=== PATIENT | male | born 1940 | race Caucasian/White ===

== ENCOUNTER 2019-07-29 20:00 | Outpatient (CLI) | payer MEDICARE, SELFPAY | END 2019-07-29 20:01 | disposition home or self-care (01) | LOC: SLEEP 07-30 09:46 | PROVIDERS: PCP Nurse Practitioner; Visit Provider Nurse Practitioner | DX: G47.33 Obstructive sleep apnea (adult) (pediatric) (principal) | CPT/HCPCS: 95810 ==

== ENCOUNTER 2019-08-10 18:28 | Inpatient (IN) | payer MEDICARE, SELFPAY ==
[2019-08-10] VITALS (13 sets, daily range): BP systolic 107–143; BP diastolic 52–77; PULSE 20–105; RESP 15–18; TEMP 36.6–36.8; O2SAT 92–98; BMI 30.5
--- NOTE | 2019-08-10 18:29 | ED_ITS ---
Entered by Rachell Hodges, acting as scribe for Lizzeth Maher MD HPI - Fall General: Chief Complaint: Fall Stated Complaint: MULT FALLS Time Seen by Provider: 08/10/19 18:29 Source: patient, family and EMS Mode of arrival: EMS Limitations: no limitations History of Present Illness: HPI Narrative: 78 yo male presents to ED after multiple falls. The patient said he falls when he stands from a sitting position. He patient states he has generalized pain but denies LOC. He said he has been falling for 2 weeks but his spouse states he has fallen more since . The patient said he has been dizzy and weak, that his legs will just give out. He said this has been happening more often lately. Per EMS, the patient's BS over 600. The patient's PCP Marcela Beal MD complaint: fall Onset (ago): week(s) (2) Fall from: other (sitting to standing) Fall witnessed: yes, by family Place fall occurred: home Loss of consciousness: None Prolonged down time: no Symptoms prior to fall: dizziness and other (weak legs) Context: tripped/slipped and history of frequent falls Location of injury: other (generalized pain) Severity: moderate Quality: aching Associated symptoms-after fall: Reports lightheadedness and weakness; Denies abdominal pain or headache(s) Review of Systems Const: Denies: fever or chills Eyes: Denies: change in vision ENMT: Denies: throat pain or mouth pain Card: Reports: lightheadedness Resp: Denies: shortness of breath GI: Denies: abdominal pain, nausea, vomiting or diarrhea Musc: Denies: back pain or joint pain Skin/Breast: Denies: rash Neuro: Denies: headache or behavioral changes Psych: Denies: depression Endo: Denies: excessive urination Sanjay/Lymph: Denies: easy bruising All/Imm: Denies: hives PFSH ED PFSH: Statuses (acute, chronic, etc) shown below reflect problem list status as previously entered and may not be historically accurate Social History Smoking and tobacco status: former smoker Quit status (tobacco): has quit using tobacco Former quit date comment: 3 months ago Second hand smoke exposure: No Alcohol intake: current Alcohol intake frequency: holidays/special occasions only Alcohol type: beer Desire information about alcohol rehabilitation?: No Counseling given: No Desire information about substance/drug rehabilitation?: No Counseling given: No Adopted: No Caregiver/support person: Yes Lives independently: Yes Household members: spouse Housing: House Marital status: Highest education level completed: High School Graduate service: Yes Current occupational status: retired Current occupational exposures/hazards: No Pets and animals: No History of recent travel: No Sexually active: No Current gender identity: Male Arin/Alevism: Mu-Ism Special arin needs: No Agree to transfusion: No Financial difficulty paying for basics: Decline to Answer Physical Exam Const: COMMON NORMALS: no apparent distress and healthy appearing HENMT: COMMON NORMALS: normocephalic and external nose normal HEAD & SCALP: normocephalic NOSE: external nose normal and no nasal discharge (nasal dischage) Eye: COMMON NORMALS: PERRL PUPIL: Yes PERRL Neck/C-Spine: COMMON NORMALS: full ROM and no lymphadenopathy Chest: COMMONS NORMALS: inspection of chest normal Resp: COMMON NORMALS: normal respiratory effort and clear to auscultation bilaterally AUSCULTATION: clear to auscultation bilaterally Cardio: COMMON NORMALS: regular rate and regular rhythm RATE: regular rate RHYTHM: regular rhythm GI: COMMON NORMALS: soft to palpation PALPATION: Yes soft Extremity: COMMON NORMALS: normal to inspection, full ROM and normal capillary refill Psych: COMMON NORMALS: mental status grossly normal and cooperative Skin: COMMON NORMALS: no rashes or lesions noted GENERAL SKIN EXAM: no rashes or lesions noted Course Vital Signs: Vital signs: Vital Signs Temperature 97.9 F 08/10/19 18:34 Pulse Rate 85 08/10/19 19:34 Respiratory Rate 18 08/10/19 19:34 Blood Pressure 119/52 08/10/19 19:34 Pulse Oximetry 98 08/10/19 19:34 MDM - Fall MDM Narrative: Medical decision making narrative: Patient presents here with multiple falls and weakness likely from hyperglycemia. Patient's glucose is in the 900s and will start him on insulin drip. I spoke to hospitalist and will admit to the ICU. Lab Data: Labs: Lab Results 08/10/19 08/10/19 08/10/19 Range/Units 18:38 18:45 18:50 WBC 5.3 (4.0-10.0) 10^3/ uL RBC 4.19 (4.1-5.3) 10^6/u L Hgb 13.1 (11.7-16.6) g/dL Hct 38.0 L (42.0-52.0) % MCV 90.7 (80-94) fL MCH 31.3 (28.0-34.0) pg MCHC 34.5 (30.0-36.0) g/dL RDW 11.4 L (12.1-15.1) % Plt Count 143 (130-400) 10^3/c mm MPV 11.8 H (7.4-10.4) fL Neut % (Auto) 56.4 % Lymph % (Auto) 22.2 % Bethel % (Auto) 5.3 % Eos % (Auto) 3.0 % Baso % (Auto) 0.4 % Neut # (Auto) 3.0 (1.8-7.7) 10^3/u L Lymph # (Auto) 1.2 (0.8-4.8) 10^3/u L Bethel # (Auto) 0.3 (0.2-0.9) 10^3/u L Eos # (Auto) 0.2 (0.0-0.8) 10^3/u L Baso # (Auto) 0.0 (0.0-0.1) 10^3/u L Nucleated RBC % (a uto) 0 % Nucleated RBCs # 0.0 /100WBC PT (10.5-13.3) SECO NDS INR (0.8-1.2) Sodium (136-145) mmol/L Potassium (3.5-5.1) mmol/L Chloride (98-107) mmol/L Carbon Dioxide (22-29) mmol/L Anion Gap (5-19) BUN (8-23) mg/dL Creatinine (0.7-1.2) mg/dL Glucose (74-106) mg/dL POC Glucose > 600 (70-110) mg/dL Calcium (8.5-10.5) mg/dL Total Bilirubin (0.15-1.2) mg/dL AST (0-40) U/L ALT (0-41) U/L Alkaline Phosphata se (40-130) IU/L Troponin T Baselin e (0-15) ng/mL Total Protein (6.6-8.7) g/dL Albumin (3.5-5.2) g/dL Globulin (1.3-4.6) g/dL TSH (0.27-4.20) uIU/ mL Urine Color Yellow (Yellow) Urine Appearance Clear (CLEAR) Urine pH 5 (5-7) Ur Specific Gravit y 1.010 (1.005-1.030) Urine Protein Neg (Negative) Urine Glucose (UA) 4+ H (Normal) Urine Ketones 1+ H (Negative) Urine Occult Blood Neg (Negative) Urine Nitrate Negative (Negative) Urine Bilirubin Neg (NEGATIVE) Urine Urobilinogen Norm (Negative) mg/dL Ur Leukocyte Irais ase Negative (Negative) 08/10/19 08/10/19 08/10/19 Range/Units 18:50 18:50 18:50 WBC (4.0-10.0) 10^3/ uL RBC (4.1-5.3) 10^6/u L Hgb (11.7-16.6) g/dL Hct (42.0-52.0) % MCV (80-94) fL MCH (28.0-34.0) pg MCHC (30.0-36.0) g/dL RDW (12.1-15.1) % Plt Count (130-400) 10^3/c mm MPV (7.4-10.4) fL Neut % (Auto) % Lymph % (Auto) % Bethel % (Auto) % Eos % (Auto) % Baso % (Auto) % Neut # (Auto) (1.8-7.7) 10^3/u L Lymph # (Auto) (0.8-4.8) 10^3/u L Bethel # (Auto) (0.2-0.9) 10^3/u L Eos # (Auto) (0.0-0.8) 10^3/u L Baso # (Auto) (0.0-0.1) 10^3/u L Nucleated RBC % (a uto) % Nucleated RBCs # /100WBC PT 14.50 H (10.5-13.3) SECO NDS INR 1.09 (0.8-1.2) Sodium 129 L (136-145) mmol/L Potassium 6.0 H (3.5-5.1) mmol/L Chloride 90 L (98-107) mmol/L Carbon Dioxide 21 L (22-29) mmol/L Anion Gap 24.0 H (5-19) BUN 49 H (8-23) mg/dL Creatinine 1.9 H (0.7-1.2) mg/dL Glucose 907 H* (74-106) mg/dL POC Glucose (70-110) mg/dL Calcium 10.0 (8.5-10.5) mg/dL Total Bilirubin 0.5 (0.15-1.2) mg/dL AST 21 (0-40) U/L ALT 29 (0-41) U/L Alkaline Phosphata se 128 (40-130) IU/L Troponin T Baselin e 30 H (0-15) ng/mL Total Protein 7.2 (6.6-8.7) g/dL Albumin 4.2 (3.5-5.2) g/dL Globulin 3.0 (1.3-4.6) g/dL TSH 3.49 (0.27-4.20) uIU/ mL Urine Color (Yellow) Urine Appearance (CLEAR) Urine pH (5-7) Ur Specific Gravit y (1.005-1.030) Urine Protein (Negative) Urine Glucose (UA) (Normal) Urine Ketones (Negative) Urine Occult Blood (Negative) Urine Nitrate (Negative) Urine Bilirubin (NEGATIVE) Urine Urobilinogen (Negative) mg/dL Ur Leukocyte Irais ase (Negative) Imaging Data^: CT Head: Radiologist's impression: [facility] Final Radiology Report Call: [phone] assistance Online chat: [email or web address] Name: KAREN GRIMALDO Age: 78Years M Date: 08/10/2019 SSN: -- : [id number] Study: CT HEAD WO Requesting Physician: lizzeth Maher Images: 192 Add?l Studies: Provided Clinical History: weakness Procedure Accession CTDI Vol (mGy) DLP (mGy-cm) CT HEAD WO [id number] 796.16 Page 1 of 2 PROCEDURE INFORMATION: Exam: CT Head Without Contrast Exam date and time: 08/10/2019 7:55 PM Age: 78 years old Clinical indication: Walking, difficulty; Additional info: Weakness TECHNIQUE: Imaging protocol: Computed tomography of the head without contrast. Total DLP: 796.16 mGy-cm Radiation optimization: All CT scans at this facility use at least one of these dose optimization techniques: automated exposure control; mA and/or kV adjustment per patient size (includes targeted exams where dose is matched to clinical indication); or iterative reconstruction. COMPARISON: No relevant prior studies available. FINDINGS: Brain: There is diffuse cerebral atrophy present, consistent with this patient's age. Periventricular and subcortical white matter low densities are present which at this age likely represent microvascular ischemic change. No evidence for large acute ischemic infarction. Please note acute ischemia can be occult by head CT. Ventricles: Normal. No ventriculomegaly. Bones/joints: Unremarkable. No acute fracture. Sinuses: Visualized sinuses are unremarkable. No fluid levels. Mastoid air cells: Visualized mastoid air cells are well aerated. Soft tissues: Unremarkable. Vasculature: Calcified plaque is present within the intracranial vasculature. IMPRESSION: KAREN GRIMALDO Final Radiology Report CONFIDENTIALITY STATEMENT This report is intended only for use by the referring physician, and only in accordance with law. If you received this in error, call [phone]. Page 2 of 2 There are senescent changes of the brain as described above. No evidence for large acute ischemic infarction or acute intracranial injury. Thank you for allowing us to participate in the care of your patient. Dictated and Authenticated by: Abigail Goetz MD 08/10/2019 Discharge Plan Discharge Patient Disposition: Admitted As Inpatient Admit Provider: Gennaro Wren Clinical Impression: Acute hyperglycemia Condition: Stable Referrals: Jameson Beal, DEPUTY CLERK OF COURT-C [Primary Care Provider] - Coding Level of Care Code ED Roadside Mechanic for Chg Fwd Exam Problem Focused The documentation recorded by the Tracie roe Valerie R, accurately reflects the service I personally performed and the decisions made by Gunnar hurtado Korby, MD Aug 10, 2019 18:28
--- NOTE | 2019-08-10 18:38 | XRR_ITS ---
PROCEDURE INFORMATION: Exam: XR Chest, 1 View Exam date and time: 08/10/2019 6:58 PM Age: 78 years old Clinical indication: Cough TECHNIQUE: Imaging protocol: XR of the chest Views: 1 view. COMPARISON: No relevant prior studies available. FINDINGS: Lungs: Unremarkable. No consolidation. Pleural space: Unremarkable. No pleural effusion. No pneumothorax. Heart/Mediastinum: Unremarkable. No cardiomegaly. Bones/joints: Unremarkable. XR/XR chest 1V portable [id number] IMPRESSION: No acute findings.
[2019-08-10 18:49] LABS: Glucose Point of Care > 600 mg/dL (70-110)
[2019-08-10] MEDS: sodium chloride 0.9% 1,000 ML 999 ML IV (18:53)
[2019-08-10 19:02] LABS: Basophils % 0.4 %; Eosinophils # 0.2 10^3/uL (0.0-0.8); Hemoglobin 13.1 g/dL (11.7-16.6); Lymphocytes # 1.2 10^3/uL (0.8-4.8); Lymphocytes % 22.2 %; Mean Corpuscular HGB Conc 34.5 g/dL (30.0-36.0); Mean Corpuscular Hemoglobin 31.3 pg (28.0-34.0); Mean Corpuscular Volume 90.7 fL (80-94); Mean Platelet Volume 11.8 fL (7.4-10.4); Monocytes # 0.3 10^3/uL (0.2-0.9); Monocytes % 5.3 %; Neutrophils % 56.4 %; Nucleated Red Blood Cells % 0 %; Platelet Count 143 10^3/cmm (130-400); Red Blood Count 4.19 10^6/uL (4.1-5.3); Red Cell Distribution Width 11.4 % (12.1-15.1); White Blood Count 5.3 10^3/uL (4.0-10.0)
[2019-08-10 19:11] LABS: Add Urine Microscopic? NO
[2019-08-10 19:12] LABS: INR 1.09 (0.8-1.2)
--- NOTE | 2019-08-10 19:23 | PC.NURSE ---
Introduced self to patient and initiated vital signs. Pt is A&O x 3 and agreeable. Pt states that the reason for the ER visit today is due to excessively high blood sugar reading. Pt also complaining of dizziness when trying to stand. Reassured patient of needs and will continue to monitor. Brought patient bedside commode and assisted with use.
[2019-08-10 19:24] LABS: Troponin(5th) Baseline 30 ng/mL (0-15)
[2019-08-10 19:24] LABS: Bilirubin Urine Neg (NEGATIVE); Blood Urine Neg (Negative); Glucose Urine UA 4+ (Normal); Ketones Urine 1+ (Negative); Leukocyte Esterase Urine Negative (Negative); Nitrate Urine Negative (Negative); Protein Urine Neg (Negative); Urine Appearance Clear (CLEAR); Urine Color Yellow (Yellow); Urobilinogen Urine Norm (Negative); pH Urine 5 (5-7)
[2019-08-10 19:30] LABS: Slide Review Slide Review Perform
--- NOTE | 2019-08-10 19:40 | CTR_ITS ---
PROCEDURE INFORMATION: Exam: CT Head Without Contrast Exam date and time: 08/10/2019 7:55 PM Age: 78 years old Clinical indication: Walking, difficulty; Additional info: Weakness TECHNIQUE: Imaging protocol: Computed tomography of the head without contrast. Total DLP: 796.16 mGy-cm Radiation optimization: All CT scans at this facility use at least one of these dose optimization techniques: automated exposure control; mA and/or kV adjustment per patient size (includes targeted exams where dose is matched to clinical indication); or iterative reconstruction. COMPARISON: No relevant prior studies available. FINDINGS: Brain: There is diffuse cerebral atrophy present, consistent with this patient's age. Periventricular and subcortical white matter low densities are present which at this age likely represent microvascular ischemic change. No evidence for large acute ischemic infarction. Please note acute ischemia can be occult by head CT. Ventricles: Normal. No ventriculomegaly. Bones/joints: Unremarkable. No acute fracture. Sinuses: Visualized sinuses are unremarkable. No fluid levels. Mastoid air cells: Visualized mastoid air cells are well aerated. Soft tissues: Unremarkable. Vasculature: Calcified plaque is present within the intracranial vasculature. CT/CT head wo con* [id number] IMPRESSION: There are senescent changes of the brain as described above. No evidence for large acute ischemic infarction or acute intracranial injury. Radiation Dose CTDIVOL = (mGy): DLP = 796.16 (mGy-cm)
[2019-08-10 20:08] LABS: Alanine Aminotransferase 29 U/L (0-41); Albumin Level 4.2 g/dL (3.5-5.2); Alkaline Phosphatase 128 IU/L (40-130); Aspartate Amino Transferase 21 U/L (0-40); Blood Urea Nitrogen 49 mg/dL (8-23); Carbon Dioxide 21 mmol/L (22-29); Chloride 90 mmol/L (98-107); Creatinine Clr Calc Pharmacy 35.6625; Sodium 129 mmol/L (136-145); Thyroid Stimulating Hormone 3.49 uIU/mL (0.27-4.20); Total Bilirubin 0.5 mg/dL (0.15-1.2); Total Protein 7.2 g/dL (6.6-8.7)
[2019-08-10 20:27] LABS: Glucose 907 mg/dL (74-106)
[2019-08-10 21:11] LABS: Ketone (Acetest) Serum Negative (Negative)
[2019-08-10 21:21] LABS: Troponin 5 2HR 29.08 ng/mL (0-15)
[2019-08-10 21:22] LABS: Troponin 5 2HR Delta -0.92 ABS# (0-10)
[2019-08-10] MEDS: insulin regular-human 250 UNIT in sodium chloride 0.9% 250 ML 25.7 UNIT IV (21:23)
[2019-08-10 21:30] LABS: ABG PCO2 42.9 mmHg (35-45); Arterial Blood Gas Hematocrit 41.9 % (42-52); Base Excess ABG -5.2 mmol/L (-2.0-2.0); Blood Gas Allen Test Pos; Blood Gas Sample Site Radial, left; Blood Gas Sample Type Arterial; HCO3 ABG 21.1 mmol/L (22-26); PO2 ABG 64.6 mmHg (80.0-100.0)
--- NOTE | 2019-08-10 21:31 | P.HP_ITS ---
Providers/Chief Complaint Admitting Physician: Gennaro Wren MD Primary Care Provider: DIAN JusticeP-Elena Chief Complaint: HYPERGLYCEMIA History of Present Illness Vik Bruce is a 78 year old male with suboptimally controlled type 2 diabetes, has not been checking his blood sugar at home, noncompliant came in with chief complaint of generalized weakness. Patient is stating that recently he has been eating more, he wakes up at night to eat sugary foods, he has been experiencing urinary frequency, today he went to bathroom and was not able to get up from the toilet seat and at that time he decided to come to ED. In ED blood sugar was 900, he was admitted to ICU. He did not meet DKA criteria. Patient does not remember what type of insulin he is taking but he remembers that he takes Victoza and he is not on metformin. I have reviewed his previous office record which indicates that he was put on sliding scale and was helping him to keep his blood sugar under control. He is scheduled to get EGD and colonoscopy by Dr. Alfredo in recent future. He is denying chest pain, shortness of breath, dysuria, epigastric pain, recent flulike symptoms. Diagnostics in ER showed hyperglycemia blood glucose 900, potassium of 6, normal bicarb level, ketones negative, high anion gap, Review of Systems Const: Reports: body aches, change in appetite, fatigue and malaise; Denies: fever or chills Eyes: Denies: change in vision or blurry vision ENMT: Denies: throat pain Card: Denies: chest pain Resp: Denies: shortness of breath GI: Denies: abdominal pain : Denies: flank pain Musc: Denies: neck pain Skin/Breast: Denies: rash Neuro: Denies: headache Psych: Denies: anxiety Endo: Reports: excessive urination and excessive thirst Sanjay/Lymph: Denies: easy bruising All/Imm: Denies: hives Medications/Allergies Allergies Allergy/AdvReac Type Severity Reaction Status Date / Time Penicillins Allergy Unknown Unknown Verified 08/08/19 11:30 PFSH Acute PFSH: Statuses (acute, chronic, etc) shown below reflect problem list status as previously entered and may not be historically accurate Social History Smoking and tobacco status: former smoker Quit status (tobacco): has quit using tobacco Former quit date comment: 3 months ago Second hand smoke exposure: No Alcohol intake: current Alcohol intake frequency: holidays/special occasions only Alcohol type: beer Desire information about alcohol rehabilitation?: No Counseling given: No Desire information about substance/drug rehabilitation?: No Counseling given: No Adopted: No Caregiver/support person: Yes Lives independently: Yes Household members: spouse Housing: House Marital status: Highest education level completed: High School Graduate service: Yes Current occupational status: retired Current occupational exposures/hazards: No Pets and animals: No History of recent travel: No Sexually active: No Current gender identity: Male Arin/Congregational: Religious Special arin needs: No Agree to transfusion: No Financial difficulty paying for basics: Decline to Answer Vitals/I&O/Wt Last Vital Signs Temp 97.9 F 08/10/19 18:34 Pulse 85 08/10/19 19:34 Resp 18 08/10/19 19:34 BP 119/52 08/10/19 19:34 Pulse Ox 98 08/10/19 19:34 Weight last 48 hrs Weight 93.894 kg Physical Exam Narrative: EXAM NARRATIVE: Appears stated age, lying comfortable in his bed, S1-S2, no signs of active heart failure murmur EOMI, PERRLA No signs of dehydration Abdomen soft nontender nondistended bowel sound present Neurologically nonfocal exam, Lungs are clear to auscultation without adventitious sounds Skin does not show any signs ischemia gangrene ulcer Appropriate mood and affect with mild cognitive impairment Data : 08/10/19 18:50 08/10/19 18:50 A&P Assessment and plan (1) Acute hyperglycemia: Status: Acute Code(s): R73.9 - Hyperglycemia, unspecified (2) Chronic kidney disease (CKD), stage III (moderate): Status: Acute Code(s): N18.3 - Chronic kidney disease, stage 3 (moderate) (3) Hyperosmolar non-ketotic state in patient with type 2 diabetes mellitus: Status: Acute Code(s): E11.00 - Type 2 diabetes mellitus with hyperosmolarity without nonketotic hyperglycemic-hyperosmolar coma (NKHHC) Additional A&P Information Hyperosmolar hyperglycemia without ketosis or comatose condition Current blood glucose 900, initiate DKA protocol Does not meet DKA criteria but will follow regular insulin DKA protocol BMP every 2 hours, currently potassium is 6, I would use normal saline without potassium Stop insulin if potassium less than 3.5, add D5 once blood sugar less than 250, Bridge with long-acting insulin once anion gap is closed We will check A1c level, lipid panel and TSH Patient needs extensive diabetic teaching I believe he also has mild cognitive impairment as well which might be a casandra for optimal glucose control, is not at the bedside who is caregiver for him Chronic kidney disease I would go ahead and keep insulin on board because I think poor 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 continue home medications amlodipine and lisinopril Anxiety/depression: I would continue his buspirone Hold cyclobenzaprine for now BPH: Continue tamsulosin DVT prophylaxis: Heparin GI prophylaxis not needed Full code Attestations Medical Necessity Statement*: Currently patient needs more than 2 midnights in the hospital for management of hyperglycemia, currently on IV insulin in ICU Time Spent in Patient Care: 50 Coding Level of Care Code Acute Freight Rate Specialist for Juan Jose Alcala Diagnoses Acute hyperglycemia R73.9 Chronic kidney disease (CKD), stage III (moderate) N18.3 Hyperosmolar non-ketotic state in patient with type 2 diabetes mellitus E11.00
[2019-08-10] MEDS: sodium chloride 0.9% 1,000 ML 250 ML IV (22:01)
[2019-08-10 23:13] LABS: Glucose Point of Care 417 mg/dL (70-110)
[2019-08-10 23:13] LABS: Glucose Point of Care > 600 mg/dL (70-110)
[2019-08-10] MEDS: heparin 5,000 unit/mL INJ 1 mL 5000 UNIT SUBCUT (23:32)
[2019-08-10 23:37] LABS: Chol HDL Ratio 5.58 mg/dL (1.0-5.00); Cholesterol 145 mg/dL (0-200); Estmated Average Glucose 349; HDL Cholesterol 26 mg/dL (60-100); Hemoglobin A1C 13.8 % (4.0-6.0); LDL Cholesterol Calculated 50 mg/dL (50-129); LDL HDL Ratio 1.92 RATIO (0.00-3.22); Triglycerides 344 mg/dL (0-150)
[2019-08-11] VITALS (23 sets, daily range): BP systolic 77–118; BP diastolic 38–77; PULSE 62–91; RESP 9–20; TEMP 36.2–36.8; O2SAT 79–99
--- NOTE | 2019-08-11 00:39 | ECG_ITS ---
Measurements Intervals [place] Rate: 76 P: 37 GA: 204 QRS: 2 QRSD: 100 T: 65 QT: 334 QTc: 378 SINUS RHYTHM WARNING: DATA QUALITY MAY AFFECT INTERPRETATION No previous ECG available for comparison Electronically Signed On 08-11-2019 17:52:51 [employer] SUPERVISOR by Gennaro Concepcion M.D. [email or web address]
[2019-08-11] MEDS: dextrose 5%-sod chloride 0.45% 1,000 ML 125 ML IV (01:19)
[2019-08-11 01:37] LABS: Anion Gap 16.5 (5-19); Blood Urea Nitrogen 44 mg/dL (8-23); Carbon Dioxide 23 mmol/L (22-29); Chloride 102 mmol/L (98-107); Glucose 190 mg/dL (74-106); Osmolality Calculated 287 mOsm/kg (285-295); Potassium 4.5 mmol/L (3.5-5.1); Sodium 137 mmol/L (136-145)
[2019-08-11 01:38] LABS: Troponin 5 6HR 28.75 ng/L (0-15)
[2019-08-11 01:55] LABS: Troponin 5 6HR Delta -1.25 ng/L (0-12)
[2019-08-11 04:42] LABS: Basophils % 0.4 %; Eosinophils # 0.3 10^3/uL (0.0-0.8); Eosinophils % 3.3 %; Hematocrit 34.2 % (42.0-52.0); Hemoglobin 12.2 g/dL (11.7-16.6); Lymphocytes # 2.4 10^3/uL (0.8-4.8); Lymphocytes % 31.6 %; Mean Corpuscular HGB Conc 35.7 g/dL (30.0-36.0); Mean Platelet Volume 11.6 fL (7.4-10.4); Monocytes # 0.6 10^3/uL (0.2-0.9); Monocytes % 8.3 %; Neutrophils # 3.7 10^3/uL (1.8-7.7); Neutrophils % 49.1 %; Nucleated Red Blood Cells % 0 %; Platelet Count 149 10^3/cmm (130-400); Positive C 1; Positive M 1; Red Blood Count 3.93 10^6/uL (4.1-5.3); White Blood Count 7.5 10^3/uL (4.0-10.0)
[2019-08-11 05:09] LABS: Anion Gap 16.4 (5-19); Blood Urea Nitrogen 41 mg/dL (8-23); Calcium 9.9 mg/dL (8.5-10.5); Carbon Dioxide 24 mmol/L (22-29); Chloride 103 mmol/L (98-107); Glucose 106 mg/dL (74-106); Osmolality Calculated 286 mOsm/kg (285-295); Potassium 4.4 mmol/L (3.5-5.1); Sodium 139 mmol/L (136-145)
[2019-08-11 06:14] LABS: Slide Review Slide Review Perform
[2019-08-11 06:27] LABS: Glucose Point of Care 102 mg/dL (70-110)
[2019-08-11 06:27] LABS: Glucose Point of Care 346 mg/dL (70-110)
[2019-08-11 06:27] LABS: Glucose Point of Care 200 mg/dL (70-110)
[2019-08-11 06:27] LABS: Glucose Point of Care 137 mg/dL (70-110)
[2019-08-11 06:27] LABS: Glucose Point of Care 152 mg/dL (70-110)
[2019-08-11 06:27] LABS: Glucose Point of Care 116 mg/dL (70-110)
[2019-08-11 07:27] LABS: Glucose Point of Care 210 mg/dL (70-110)
[2019-08-11 07:35] LABS: Glucose Point of Care 163 mg/dL (70-110)
[2019-08-11] MEDS: amlodipine 5 mg Tablet PO (07:48)
[2019-08-11] MEDS: lisinopril 20 mg Tablet PO (07:48)
[2019-08-11] MEDS: heparin 5,000 unit/mL INJ 1 mL 5000 UNIT SUBCUT ×3 (07:48→22:34)
[2019-08-11] MEDS: tamsulosin 0.4 mg Capsule PO (07:49)
--- NOTE | 2019-08-11 08:36 | PC.NURSE ---
Dr. Vázquez in room. Orders received to stop current fluids and administer 0.9 NS at 75 cc/hr.
--- NOTE | 2019-08-11 09:35 | PC.NURSE ---
Orthostatic BP Lying: BP 118/61, HR 71 Sitting: BP 113/62, HR 83 Standing: BP 113/63, HR 91
[2019-08-11] MEDS: sodium chloride 0.9% 1,000 ML 75 ML IV ×2 (09:44→22:35)
[2019-08-11 09:53] LABS: Glucose Point of Care 314 mg/dL (70-110)
[2019-08-11 10:06] LABS: Glucose Point of Care 322 mg/dL (70-110)
--- NOTE | 2019-08-11 11:56 | PC.NURSE ---
in room. states that patient's BG had been running around 600 for three days before coming to the hospital. She states she does not think the patient is following their insulin regime correctly.
[2019-08-11 12:00] LABS: Glucose Point of Care 310 mg/dL (70-110)
--- NOTE | 2019-08-11 14:27 | PC.NURSE ---
Report given to [facility]. Patient taken to [facility] via wheelchair.
[2019-08-11 17:06] LABS: Glucose Point of Care 384 mg/dL (70-110)
--- NOTE | 2019-08-11 17:33 | P.PN_ITS ---
Subjective Subjective: Interval history: Admitted overnight. H&P and labs noted. At present patient is off the insulin drip since midnight with his blood sugars well maintained. Denies of having any nausea, vomiting, headache, chest pain, palpitations. Patient is not really sure what medications he takes for diabetes. Medications: Medication Review Details: Med rec done. Vitals/I&O/Wt Last Vital Signs Temp 98.2 F 08/11/19 16:00 Pulse 74 08/11/19 16:00 Resp 16 08/11/19 16:00 BP 100/57 08/11/19 16:00 Pulse Ox 92 08/11/19 16:00 08/11/19 08/11/19 08/11/19 06:59 14:59 22:59 Intake Total 1092.043 / 1092.043 750 / 750 Output Total 450 / 450 350 / 350 Balance 642.043 / 642.043 400 / 400 Weight last 48 hrs Weight 93.894 kg Physical Exam Narrative: EXAM NARRATIVE: General: No acute distress, AO x3 HEENT: PERRLA, pupils bilaterally equal and reactive Chest: Normal vesicular breath sounds, no added sounds, equal good air entry bilaterally CVS: S1-S2 regular, no murmurs, no tachycardia, no gallops, no rubs Abdomen: Soft, nontender, no organomegaly, bowel sounds present Neuro: No focal deficits, no facial deformity, AO x3, power 5/5 in all limbs Data : 08/11/19 03:46 08/11/19 03:46 A&P Assessment and plan (1) Acute hyperglycemia: Status: Acute Code(s): R73.9 - Hyperglycemia, unspecified (2) Chronic kidney disease (CKD), stage III (moderate): Status: Acute Code(s): N18.3 - Chronic kidney disease, stage 3 (moderate) (3) Hyperosmolar non-ketotic state in patient with type 2 diabetes mellitus: Status: Acute Code(s): E11.00 - Type 2 diabetes mellitus with hyperosmolarity without nonketotic hyperglycemic-hyperosmolar coma (NKHHC) Additional A&P Information Hyperosmolar hyperglycemia without ketosis or comatose condition: Most likely due to medication noncompliance. Patient has been off insulin drip since midnight. Patient is currently on D5 NS running at 125 cc/h. We will switch to fluid to NS at 75 cc/h Check fingersticks for next 2 hours every 1 hourly. After that can check fingersticks before meals and at bedtime. Continue patient on moderate insulin sliding scale along with Lantus of 20 units bedtime. Continue with carb consistent diet. Med rec not done. Will ask the help of nursing staff for medical reconciliation. I tried calling his who is also his caregiver and she will try to get the medications from home. Chronic kidney disease Baseline creatinine around 1.3. In past creatinine has gone as high as 2.6 in 2018. Right now creatinine 1.5 most likely due to dehydration. Next We will avoid nephrotoxic drugs. Stop lisinopril for now. Continue with hydration. Check BMP daily. Hypertension: Patient complaining of recurrent falls. Orthostatic BP check. Hold off on Amlo and lisinopril for now given low BP. C/w hydration. Physical therapy assessment and evaluation Anxiety/depression: I would continue his buspirone Hold cyclobenzaprine for now BPH: Continue tamsulosin DVT prophylaxis: Heparin GI prophylaxis not needed Full code Transfer patient to [facility] floor. Attestations Medical Necessity Statement*: Discontinued hospitalization for recurrent falls and HHS. Time Spent in Patient Care: Greater than 35 minutes (>than 50% of time spent in counselling and/or direct pt care on unit) . Coding Level of Care Code Acute Print Producer for Juan Jose Alclaa Diagnoses Acute hyperglycemia R73.9 Chronic kidney disease (CKD), stage III (moderate) N18.3 Hyperosmolar non-ketotic state in patient with type 2 diabetes mellitus E11.00
[2019-08-11] MEDS: insulin glargine 100 units/1 mL 20 UNIT SUBCUT (21:11)
[2019-08-11 22:07] LABS: Glucose Point of Care 358 mg/dL (70-110)
[2019-08-12] VITALS: BP 106/68; PULSE 63; RESP 22; TEMP 37.1; O2SAT 96
[2019-08-12 03:50] VITALS: BP 137/79; PULSE 79; RESP 18; TEMP 36.7; O2SAT 95
[2019-08-12 05:09] LABS: Basophils % 0.4 %; Eosinophils # 0.3 10^3/uL (0.0-0.8); Eosinophils % 4.9 %; Hemoglobin 11.8 g/dL (11.7-16.6); Lymphocytes # 1.9 10^3/uL (0.8-4.8); Mean Corpuscular HGB Conc 35.8 g/dL (30.0-36.0); Mean Corpuscular Hemoglobin 31.4 pg (28.0-34.0); Mean Corpuscular Volume 87.8 fL (80-94); Mean Platelet Volume 11.6 fL (7.4-10.4); Monocytes # 0.3 10^3/uL (0.2-0.9); Monocytes % 6.4 %; Neutrophils # 2.3 10^3/uL (1.8-7.7); Neutrophils % 44.5 %; Nucleated Red Blood Cells % 0 %; Platelet Count 134 10^3/cmm (130-400); Positive C 1; Positive M 1; Red Blood Count 3.76 10^6/uL (4.1-5.3); Red Cell Distribution Width 11.3 % (12.1-15.1); White Blood Count 5.1 10^3/uL (4.0-10.0)
[2019-08-12 05:22] LABS: Alanine Aminotransferase 31 U/L (0-41); Albumin Level 3.7 g/dL (3.5-5.2); Alkaline Phosphatase 75 IU/L (40-130); Anion Gap 15.7 (5-19); Aspartate Amino Transferase 27 U/L (0-40); Blood Urea Nitrogen 28 mg/dL (8-23); Carbon Dioxide 22 mmol/L (22-29); Chloride 100 mmol/L (98-107); Globulin 2.5 g/dL (1.3-4.6); Glucose 192 mg/dL (74-106); Potassium 4.7 mmol/L (3.5-5.1); Sodium 133 mmol/L (136-145); Total Bilirubin 0.4 mg/dL (0.15-1.2); Total Protein 6.2 g/dL (6.6-8.7)
[2019-08-12 06:45] LABS: Slide Review Slide Review Perform
[2019-08-12 07:00] VITALS: BP 113/70; BP 120/75; BP 131/74; BP 94/63; PULSE 69; PULSE 77; PULSE 84; PULSE 93; RESP 22; TEMP 36.6; O2SAT 96
[2019-08-12 07:18] LABS: Glucose Point of Care 213 mg/dL (70-110)
[2019-08-12] MEDS: heparin 5,000 unit/mL INJ 1 mL 5000 UNIT SUBCUT (09:03)
[2019-08-12] MEDS: tamsulosin 0.4 mg Capsule PO (09:03)
--- NOTE | 2019-08-12 10:21 | P.DS_ITS ---
Discharge Providers Date of Admission: 08/10/19 20:34 Date of Discharge: 08/12/19 Attending Provider at Admission: Gennaro Wren MD Attending Provider at Discharge: Sacha Vázquez MD Primary Care Provider: ANEL Justice Diagnoses at Discharge Discharge Diagnosis (1) Acute hyperglycemia: Status: Acute (2) Chronic kidney disease (CKD), stage III (moderate): Status: Acute (3) Hyperosmolar non-ketotic state in patient with type 2 diabetes mellitus: Status: Acute Reason for Visit Reason for Visit: Reason For Visit: HYPERGLYCEMIA Hospital Course Discharge Summary: Vik Bruce is a 78 year old male with past medical history of hypertension, anxiety/depression, BPH, CKD, suboptimally controlled type 2 diabetes, who is mostly noncompliant with his medications, lifestyle modifications came in with chief complaint of generalized weakness on August 10. Under sedation patient was found to be in hyperosmolar hyperglycemic state without ketosis or comatose condition with his blood sugar more than 900. Patient was admitted to the ICU for IV hydration and insulin drip. Patient responded well to the treatment and was off the insulin drip in 4 to 5 hours. Patient was treated as per the DKA protocol. His electrolytes and blood sugar remained stable. On further interviewing with the patient patient stated that he is very noncompliant with his diet and snacks multiple times during the day and sometimes takes his insulin once a day or twice a day depending on the type of day at rest. Patient has also been complaining of frequent falls because of which orthostatics were done and was found to be positive. During hospitalization patient's blood pressure remained on the lower side so his antihypertensives were withheld. Orthostatics were positive most likely due to dehydration along with diabetic nephropathy. Patient has been advised to stop his antihypertensives and follow-up with his primary care practitioner in 2 weeks for a blood pressure check and commencement of medications as required. As patient required around 65 units of insulin his antidiabetic medications have been adjusted as well and given the noncompliance patient has been advised to take Lantus 60 units in 2 divided doses along with his home dose of Victoza. Patient has agreed to be compliant with the current medications. Patient has been educated and counseled regarding need to be on better lifestyle modifications. Patient is discharged in hemodynamically stable condition with better sugar control. Physical Exam Narrative: EXAM NARRATIVE: General: No acute distress, AO x3 HEENT: PERRLA, pupils bilaterally equal and reactive Chest: Normal vesicular breath sounds, no added sounds, equal good air entry bilaterally CVS: S1-S2 regular, no murmurs, no tachycardia, no gallops, no rubs Abdomen: Soft, nontender, no organomegaly, bowel sounds present Neuro: No focal deficits, no facial deformity, AO x3, power 5/5 in all limbs Discharge Data Data Completed and Pending: Completed Studies During Hospitalization Category Date Time Status CT head wo con* [id number] Urgent Cat Scan 08/10/19 19:40 Completed XR chest 1V mil ble [id number] Urgent Exams 08/10/19 18:38 Completed Labs from last 24 hours 08/12/19 08/12/19 08/12/19 07:03 04:45 04:45 WBC 5.1 RBC 3.76 L Hgb 11.8 Hct 33.0 L MCV 87.8 MCH 31.4 MCHC 35.8 RDW 11.3 L Plt Count 134 MPV 11.6 H Neut % (Auto) 44.5 Lymph % (Auto) 37.0 [place] % (Auto) 6.4 Eos % (Auto) 4.9 Baso % (Auto) 0.4 Neut # (Auto) 2.3 Lymph # (Auto) 1.9 [place] # (Auto) 0.3 Eos # (Auto) 0.3 Baso # (Auto) 0.0 Nucleated RBC % (a uto) 0 Nucleated RBCs # 0.0 Sodium 133 L Potassium 4.7 Chloride 100 Carbon Dioxide 22 Anion Gap 15.7 BUN 28 H Creatinine 1.5 H Glucose 192 H POC Glucose 213 Calcium 9.0 Total Bilirubin 0.4 AST 27 ALT 31 Alkaline Phosphata se 75 Total Protein 6.2 L Albumin 3.7 Globulin 2.5 08/11/19 08/11/19 08/11/19 21:43 16:52 11:27 WBC RBC Hgb Hct MCV MCH MCHC RDW Plt Count MPV Neut % (Auto) Lymph % (Auto) [place] % (Auto) Eos % (Auto) Baso % (Auto) Neut # (Auto) Lymph # (Auto) [place] # (Auto) Eos # (Auto) Baso # (Auto) Nucleated RBC % (a uto) Nucleated RBCs # Sodium Potassium Chloride Carbon Dioxide Anion Gap BUN Creatinine Glucose POC Glucose 358 384 310 Calcium Total Bilirubin AST ALT Alkaline Phosphata se Total Protein Albumin Globulin Vitals: Last Vital Signs Temp 97.8 F 08/12/19 07:00 Pulse 77 08/12/19 07:00 Resp 22 H 08/12/19 07:00 BP 113/70 08/12/19 07:00 Pulse Ox 96 08/12/19 07:00 Discharge Plan Discharge Patient Disposition: Home, Self-Care Condition: Stable Prescriptions: Continued (DME) blood-glucose meter [OneTouch Ultra2 Meter] Kit See Rx Instructions .ROUTE .MEDSUPPLY Qty: 1 RF: 0 (DME) OneTouch Ultra Blue Test Strip Strip See Rx Instructions .ROUTE .MEDSUPPLY Qty: 100 RF: 5 atorvastatin 10 mg tablet 10 mg PO BEDTIME RF: 0 tamsulosin 0.4 mg capsule 0.4 cap PO DAILY RF: 0 calcium carbonate-vitamin D3 500mg (1,250mg) -600 unit tablet 1 ea PO BID RF: 0 (DME) pen needle, diabetic 32 gauge x 5/32 needle See Rx Instructions ea .ROUTE .MEDSUPPLY Qty: 10 RF: 0 cyclobenzaprine 10 mg tablet 10 mg PO BEDTIME RF: 0 Victoza 3-Karan 0.6 mg/0.1 mL (18 mg/3 mL) pen injector 18 mg SUBCUT DAILY RF: 0 Changed sertraline 50 mg tablet 25 tab PO DAILY Qty: 0 RF: 0 buspirone 15 mg tablet 15 mg PO DAILY PRN (Reason: Anxiety) Qty: 0 RF: 0 Levemir FlexTouch U-100 Insuln 100 units/ml auto-injector 30 units INJECTION BIDWM Qty: 300 RF: 3 Discontinued amlodipine 2.5 mg tablet 2.5 tab PO DAILY RF: 0 lisinopril 20 mg tablet 20 mg PO DAILY RF: 0 insulin lispro [Humalog KwikPen Insulin] 100 unit/mL insulin pen 3 - 24 unit SUBCUT TIDWM RF: 0 Discharge Orders: Discharge Order (Routine); Ordered 08/12/19 Ordered By: Sacha Vázquez Referrals: Jameson Beal, [facility] [Primary Care Provider] - 08/18/19 1:20 pm Discharge Diet: Cardiac and Diabetic Discharge Activity: Resume usual activity Patient Instructions: Insulin Detemir (Injection), Meal Planning with Diabetes Exchanges (DC) Activity Restrictions/Additional Instructions: Take insulin as prescribed. Take insulin Levemir 30 units once morning once evening. All the antihypertensives were withheld due to diabetic neuropathy. While getting out of bed, get up slowly to avoid orthostasis. Discharge Date/Time: 08/12/19 11:00 Discharge Attestations Time Spent in Discharge Care*: greater than 30 min Specific Discharge Activities: Specific discharge activities: educating patient and evaluating patient/reviewing data Status at Discharge: Cognitive status at discharge: cognitively intact , Behavioral status at discharge: cooperative , Functional status at discharge: independent ambulation Overall status at discharge: patient is back to baseline Quality Metrics Clinical Quality Measures During this hospital stay, did patient experience: None Coding Level of Care Code Acute Learning Designer for Juan Jose Fwd Diagnoses Acute hyperglycemia R73.9 Chronic kidney disease (CKD), stage III (moderate) N18.3 Hyperosmolar non-ketotic state in patient with type 2 diabetes mellitus E11.00
[2019-08-12 10:38] VITALS: BP 120/75; PULSE 69; RESP 22; TEMP 36.6; O2SAT 96
== END 2019-08-12 11:00 | disposition home or self-care (01) | DRG 637 ==
LOC: ER 20:48 → ICU 20:49 → MEDSURG 08-11 14:19
PROVIDERS: Admitting Provider Internal Medicine; Emergency Provider Emergency Medicine; PCP Nurse Practitioner; Visit Provider Student in an Organized Health Care Education/Training Program
DX: E11.65 Type 2 diabetes mellitus with hyperglycemia (principal); E11.00 Type 2 diabetes mellitus with hyperosmolarity without nonketotic hyperglycemic-hyperosmolar coma (NKHHC); Z91.14 Patient's other noncompliance with medication regimen; Z79.4 Long term (current) use of insulin; Z88.0 Allergy status to penicillin; N18.3 Chronic kidney disease, stage 3 (moderate); I12.9 Hypertensive chronic kidney disease with stage 1 through stage 4 chronic kidney disease, or unspecified chronic kidney disease; E11.22 Type 2 diabetes mellitus with diabetic chronic kidney disease; F41.9 Anxiety disorder, unspecified; F32.9 Major depressive disorder, single episode, unspecified; N40.0 Benign prostatic hyperplasia without lower urinary tract symptoms; Z87.891 Personal history of nicotine dependence; E86.0 Dehydration; E11.21 Type 2 diabetes mellitus with diabetic nephropathy
CPT/HCPCS: 12345; 36415; 36416; 36600; 70450; 71045; 80048; 80053; 80061; 81003; 82009; 82803; 82962; 83036; 84443; 84484; 85025; 85610; 93005; 96365; 96366; 96372; 99282; J1644; J1815; J7030; J7050; J7799

== ENCOUNTER 2019-09-02 07:16 | Day surgery (SDC) | payer MEDICARE, SELFPAY ==
[2019-09-01 07:58] VITALS: BMI 30.8
[2019-09-02 07:47] VITALS: BP 67/40; PULSE 92; RESP 18; TEMP 36.3; O2SAT 95
[2019-09-02 07:57] LABS: Glucose Point of Care 205 mg/dL (70-110)
[2019-09-02] MEDS: lactated ringers 1,000 ML 999 ML (08:44)
--- NOTE | 2019-09-02 09:59 | ANES.PREANE2 ---
Pre-Anesthetic Assessment Pre-Anesthetic Assessment: Height/Weight: Height 1.75 m Weight 94.801 kg Temp Pulse Resp BP Pulse Ox 97.4 F L 92 18 67/40 95 09/02/19 07:47 09/02/19 07:47 09/02/19 07:47 09/02/19 07:47 09/02/19 07:47 Proposed Procedure: Operation Date: 09/02/19 08:30 Proposed Procedures p EGD/COLON 73063 K92.1 15897 Z12.11(Not Applicable) - Niles Alfredo MD s Colonoscopy(Not Applicable) - Niles Alfredo MD Was Beta Isra taken within 24 hours: N/A Last intake: Intake Last Liquid Date 09/01/19 Last Liquid Time 20:00 Social: Social History: Tobacco (Quit smiking 4 months ago) and No alcohol Exam: Pre-Anes Outpt Exam: alert, oriented x 3 and clear to auscultation bilaterally Airway: Submandibular: WNL Cervical ROM: WNL MP: 2 Dentition: False Pulmonary: Pulmonary: COPD and Sleep apnea CV/HEM: CV/HEM: HTN : : Chronic renal failure Hepatic: Hepatic: None reported GI: GI: GERD Metabolic: Metabolic: DM Comments: neuropathy Musc/skel: Musc/skel: Lower Back Pain and OA/DJD Neuropsych: Neuropsych: None reported Anesthetic Plan: ASA status: 3 Anesthesia: Anesthesia Evaluation and MAC Risk of > 500 ml blood loss (7ml/kg in children): No PFSH Anesthesia PFSH: Medical History (Updated 08/28/19 @ 23:12 by ANEL Justice) Anxiety Chronic kidney disease (CKD), stage III (moderate) 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, 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 Essential (primary) hypertension Vitamin D insufficiency Surgical History History of colonoscopy with polypectomy (~2009) Social History Smoking and tobacco status: former smoker Quit status (tobacco): has quit using tobacco Former quit date comment: 3 months ago Second hand smoke exposure: No Alcohol intake: current Alcohol intake frequency: holidays/special occasions only Alcohol type: beer Desire information about alcohol rehabilitation?: No Counseling given: No Desire information about substance/drug rehabilitation?: No Counseling given: No Adopted: No Caregiver/support person: Yes Lives independently: Yes Household members: spouse Housing: House Marital status: Highest education level completed: High School Graduate service: Yes Current occupational status: retired Current occupational exposures/hazards: No Pets and animals: No History of recent travel: No Sexually active: No Current gender identity: Male Arin/Jew: Jehovah'S Witness Special arin needs: No Agree to transfusion: No Financial difficulty paying for basics: Decline to Answer Data Anesthesia Other Labs: Laboratory Results - last 48 hr 09/02/19 07:54 POC Glucose 205 Cardiac Studies: No Data to Display
[2019-09-02 10:01] LABS: Anion Gap 21.4 (5-19); Blood Urea Nitrogen 33 mg/dL (8-23); Calcium 10.6 mg/dL (8.5-10.5); Carbon Dioxide 20 mmol/L (22-29); Chloride 101 mmol/L (98-107); Glucose 193 mg/dL (65-115); Osmolality Calculated 289 mOsm/kg (285-295); Potassium 4.4 mmol/L (3.5-5.1); Sodium 138 mmol/L (136-145)
[2019-09-02] MEDS: sodium chloride 0.9% 1,000 ML 30 ML (10:12)
[2019-09-02] MEDS: sodium chloride 0.9% 1,000 ML 999 ML (10:13)
--- NOTE | 2019-09-02 10:14 | PC.NURSE ---
PT'S BP WAS VERY LOW, ANESTHESIA GAVE VERBAL ORDERS TO RUN NS 1L BOLUS, FOLLOWED BY LR 1 L BOLUS, THEN ANOTHER NS 1L @ 30/HR
[2019-09-02 11:06] VITALS: BP 106/61; PULSE 83; RESP 16; TEMP 36.1; O2SAT 98
[2019-09-02 11:11] VITALS: BP 114/65; PULSE 79; RESP 16; O2SAT 98
--- NOTE | 2019-09-02 11:11 | ANE.PACU2 ---
 Inpatient post-anesthesia follow up: Airway intact: Yes Vital signs: Temperature 97.0 F Pulse Rate 83 Respiratory Rate 16 Blood Pressure 106/61 Pulse Oximetry 98 Oxygen Delivery Me thod Nasal Cannula Oxygen Flow Rate 2 Fraction of Inspir ed Oxygen Hydration adequate: Yes Additional Comments: Patient BP was very low prior to procedure today. Dr. Alfredo and Asad made aware. Fluid bolus and labs ordered. Patient stable for procedure after 2 liters. Vitals stable at this time.
== END 2019-09-02 11:25 | disposition home or self-care (01) ==
PROVIDERS: PCP Nurse Practitioner; Visit Provider Surgery
PROC: 0DJ08ZZ Inspection of Upper Intestinal Tract, Via Natural or Artificial Opening Endoscopic (ICD-10-PCS; CPT 43235; principal; 2019-09-02 08:30)
PROC: 0DJD8ZZ Inspection of Lower Intestinal Tract, Via Natural or Artificial Opening Endoscopic (ICD-10-PCS; CPT 45378; 2019-09-02 08:30)
DX: K92.1 Melena (principal); K29.70 Gastritis, unspecified, without bleeding; E11.22 Type 2 diabetes mellitus with diabetic chronic kidney disease; I12.9 Hypertensive chronic kidney disease with stage 1 through stage 4 chronic kidney disease, or unspecified chronic kidney disease; N18.3 Chronic kidney disease, stage 3 (moderate); Z79.4 Long term (current) use of insulin; Z87.891 Personal history of nicotine dependence; D12.4 Benign neoplasm of descending colon; J44.9 Chronic obstructive pulmonary disease, unspecified; G47.33 Obstructive sleep apnea (adult) (pediatric); I10 Essential (primary) hypertension; K21.9 Gastro-esophageal reflux disease without esophagitis; E11.9 Type 2 diabetes mellitus without complications; M19.90 Unspecified osteoarthritis, unspecified site
CPT/HCPCS: 36416; 43235; 45380; 80048; 82962; 88305; J2001; J2704; J7030

== ENCOUNTER → 2019-09-05 08:27 | Outpatient (BNVA) | payer MEDICARE, SELFPAY | PROVIDERS: PCP Nurse Practitioner; Visit Provider Nurse Practitioner | DX: E11.8 Type 2 diabetes mellitus with unspecified complications (principal); Z79.4 Long term (current) use of insulin | CPT/HCPCS: 81003 ==

== ENCOUNTER → 2019-10-29 09:02 | Outpatient (BNVA) | payer MEDICARE, SELFPAY | PROVIDERS: PCP Nurse Practitioner; Visit Provider Nurse Practitioner | DX: E11.8 Type 2 diabetes mellitus with unspecified complications (principal); Z79.4 Long term (current) use of insulin; I10 Essential (primary) hypertension | CPT/HCPCS: 80053; 80061; 83036 ==

== ENCOUNTER 2019-12-22 20:00 | Outpatient (CLI) | payer MEDICARE, SELFPAY | END 2019-12-22 20:01 | disposition home or self-care (01) | LOC: SLEEP 12-23 10:14 | PROVIDERS: PCP Nurse Practitioner; Visit Provider Nurse Practitioner | DX: G47.33 Obstructive sleep apnea (adult) (pediatric) (principal) | CPT/HCPCS: 95811 ==

== ENCOUNTER → 2020-01-13 09:07 | Outpatient (BNVA) | payer MEDICARE, SELFPAY | PROVIDERS: PCP Nurse Practitioner; Visit Provider Nurse Practitioner | DX: E11.8 Type 2 diabetes mellitus with unspecified complications (principal); I10 Essential (primary) hypertension; Z79.4 Long term (current) use of insulin | CPT/HCPCS: 80053; 80061; 83036 ==

== ENCOUNTER → 2020-03-16 10:10 | Outpatient (BNVA) | payer MEDICARE, SELFPAY | PROVIDERS: PCP Nurse Practitioner; Visit Provider Nurse Practitioner | DX: E11.8 Type 2 diabetes mellitus with unspecified complications (principal); Z79.4 Long term (current) use of insulin; F41.9 Anxiety disorder, unspecified; E11.00 Type 2 diabetes mellitus with hyperosmolarity without nonketotic hyperglycemic-hyperosmolar coma (NKHHC); Z71.89 Other specified counseling; E11.65 Type 2 diabetes mellitus with hyperglycemia; I10 Essential (primary) hypertension | CPT/HCPCS: 80053; 80061; 81000; 83036 ==

== ENCOUNTER → 2020-06-17 11:16 | Outpatient (BNVA) | payer MEDICARE, SELFPAY | PROVIDERS: PCP Nurse Practitioner; Visit Provider Nurse Practitioner | DX: E11.8 Type 2 diabetes mellitus with unspecified complications (principal); F41.9 Anxiety disorder, unspecified; I10 Essential (primary) hypertension; R39.11 Hesitancy of micturition; Z79.4 Long term (current) use of insulin | CPT/HCPCS: 80053; 83036 ==

== ENCOUNTER → 2020-09-07 13:50 | Outpatient (BNVA) | payer MEDICARE, SELFPAY | PROVIDERS: PCP Nurse Practitioner; Visit Provider Nurse Practitioner | DX: E11.8 Type 2 diabetes mellitus with unspecified complications (principal); E55.9 Vitamin D deficiency, unspecified; Z79.4 Long term (current) use of insulin | CPT/HCPCS: 80053; 80061; 82306; 83036 ==

== ENCOUNTER → 2020-11-09 10:15 | Outpatient (BNVA) | payer MEDICARE, SELFPAY | PROVIDERS: PCP Nurse Practitioner; Visit Provider Nurse Practitioner Family | DX: M79.675 Pain in left toe(s) (principal); S99.922A Unspecified injury of left foot, initial encounter; X58.XXXA Exposure to other specified factors, initial encounter | CPT/HCPCS: 73630 ==

== ENCOUNTER 2020-11-16 03:55 | Emergency (ER) | payer OTHER, MEDICARE, SELFPAY ==
[2020-11-16 04:08] VITALS: BP 136/62; PULSE 60; RESP 19; TEMP 36.7; O2SAT 97; BMI 33.2
--- NOTE | 2020-11-16 04:35 | CTR_ITS ---
PROCEDURE INFORMATION: Exam: CT Maxillofacial Without Contrast Exam date and time: 11/16/2020 4:40 AM Age: 80 years old Clinical indication: Injury or trauma; Blunt trauma (contusions or hematomas); Orbit/periorbital; Patient HX: Fall out of bed and struck face on night stand. Laceration to lower right orbit with laceration. Sutures in place. ; Additional info: Facial trauma, age > 80 TECHNIQUE: Imaging protocol: Computed tomography images of the face without contrast. Radiation optimization: All CT scans at this facility use at least one of these dose optimization techniques: automated exposure control; mA and/or kV adjustment per patient size (includes targeted exams where dose is matched to clinical indication); or iterative reconstruction. COMPARISON: No relevant prior studies available. RADIATION DOSE METRICS: Total DLP (mGy-cm): 673.56 FINDINGS: Orbital cavity: Orbits are normal. Globes are unremarkable. Bones/joints: No acute fracture. Paranasal sinuses: Normal. No air-fluid levels. Soft tissues: Right periorbital edema. CT/CT facial bones wo con* [id number] IMPRESSION: Right periorbital edema but no fracture. Radiation Dose CTDIVOL = (mGy): DLP = 673.56 (mGy-cm)
--- NOTE | 2020-11-16 04:35 | CTR_ITS ---
PROCEDURE INFORMATION: Exam: CT Head Without Contrast Exam date and time: 11/16/2020 4:40 AM Age: 80 years old Clinical indication: Injury or trauma; Blunt trauma (contusions or hematomas); Patient HX: Fall out of bed and struck face on night stand. Laceration to lower right orbit with laceration. Sutures in place. ; Additional info: Facial trauma, age > 80 TECHNIQUE: Imaging protocol: Computed tomography of the head without contrast. Radiation optimization: All CT scans at this facility use at least one of these dose optimization techniques: automated exposure control; mA and/or kV adjustment per patient size (includes targeted exams where dose is matched to clinical indication); or iterative reconstruction. COMPARISON: CT head wo con* [id number] 08/10/2019 8:11 PM RADIATION DOSE METRICS: Total DLP (mGy-cm): 932.62 FINDINGS: Brain: There is mild parenchymal atrophy and chronic small vessel disease. No acute infarct or hemorrhage. Cerebral ventricles: No ventriculomegaly. Bones/joints: No calvarial or skull base fracture. Paranasal sinuses: Paranasal sinuses are clear. No air-fluid level. Mastoid air cells: Visualized mastoid air cells are clear. Soft tissues: Unremarkable. CT/CT head wo con* [id number] IMPRESSION: 1. No acute infarct or hemorrhage. 2. No calvarial or skull base fracture. 3. Mild parenchymal atrophy and chronic small vessel disease. Radiation Dose CTDIVOL = (mGy): DLP = 932.62 (mGy-cm)
--- NOTE | 2020-11-16 04:59 | PC.NURSE ---
Pt laceration is being repaired by Dr. Stokes at this time. Pt fell off bed onto his nightstand and sustained a a 5 cm laceration to right lower orbital area. Also small laceration to forhead. Pt denies pain. Spouse at bedside. No loss of consciousness
[2020-11-16] MEDS: lidocaine 1% INJ 20 mL 5 ML IV (05:02)
[2020-11-16] MEDS: tetanus-diphtheria tox (adult) 0.5 mL SDV IM (05:03)
--- NOTE | 2020-11-16 05:39 | PC.NURSE ---
Steri strips applied to wound, pt also returned from CT
[2020-11-16 05:49] VITALS: BP 146/76; PULSE 71; RESP 18; TEMP 36.4; O2SAT 96
[2020-11-16] MEDS: sulfamethoxazole-trimeth DS 160-800 mg Tablet 1 TAB PO (06:02)
--- NOTE | 2020-11-16 06:57 | ED_ITS ---
HPI - Wound/Laceration General: Chief Complaint: Wound/Laceration Stated Complaint: lac on eyebrow Time Seen by Provider: 11/16/20 04:17 History of Present Illness: HPI narrative: 80-year-old male comes in with laceration to his right facial cheek. This occurred Just prior to arrival. Patient was at home, rolled off his bed and hit his face on the nightstand. He denied any lightheadedness or dizziness. No blurry vision no change in his vision. He denies any loss of consciousness. He denies any blood thinners. Onset (ago): minute(s) Location: face (Right facial cheek) Place: home Patient tetanus UTD: No Context: accidental Associated symptoms: Reports no associated symptoms; Denies chills, fever(s), nausea or vomiting Review of Systems Const: Denies: fever(s) or chills Eyes: Denies: change in vision or blurry vision ENMT: Reports: nasal discharge and epistaxis Card: Denies: chest pain Resp: Denies: dyspnea GI: Denies: abdominal pain, nausea or vomiting : Denies: flank pain Musc: Denies: neck pain, back pain or extremity pain Neuro: Reports: difficulty walking and frequent falls; Denies: headache(s), numbness in extremities, weakness in extremities, lack of coordination, dizziness, confusion or Slurred speech present Psych: Denies: anxiety or depression PFSH ED PFSH: Medical History Anxiety Chronic kidney disease (CKD), stage III (moderate) 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, 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 Encounter for screening colonoscopy Essential (primary) hypertension 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 Obstructive sleep apnea syndrome Vitamin D insufficiency Surgical History H/O esophagogastroduodenoscopy 09/02/2019: Mild gastritis History of cataract surgery Both eyes History of colonoscopy with polypectomy (~2009) 09/02/2019: 3 mm sessile polyp x2 descending colon Family History Mother Family history non-contributory Father Obesity Denies family history of Anesthesia complication Bleeding disorder Social History Smoking and tobacco status: former smoker Quit status (tobacco): has quit using tobacco Former quit date comment: 3 months ago Second hand smoke exposure: No Alcohol intake: current Alcohol intake frequency: holidays/special occasions only Alcohol type: beer Desire information about alcohol rehabilitation?: No Counseling given: No Desire information about substance/drug rehabilitation?: No Counseling given: No Adopted: No Caregiver/support person: Yes Lives independently: Yes Household members: spouse Housing: House Marital status: Highest education level completed: High School Graduate service: Yes status: Retired branch: [employer] Current occupational status: retired Current occupational exposures/hazards: No Pets and animals: No History of recent travel: No Sexually active: No Current gender identity: Male Arin/Rastafari: Protestant Special arin needs: No Agree to transfusion: No Financial difficulty paying for basics: Decline to Answer Physical Exam Const: COMMON NORMALS: no acute distress, patient oriented x3, no limitations, healthy appearing, alert and well nourished GENERAL APPEARANCE: cooperative, comfortable, well kempt and well developed; not in distress and not anxious NUTRITIONAL APPEARANCE: obese ORIENTATION/CONSCIOUSNESS: Yes awake, Yes oriented to person, Yes oriented to place and Yes oriented to time HENMT: COMMON NORMALS: normocephalic and Normal external nose present HEAD & SCALP: normocephalic HEAD IMAGES: 1. 5 cm crescent-shaped laceration. Ecchymosis/tenderness noted. 2. 2 cm superficial laceration noted. FACE & SINUS: laceration NOSE: Normal external nose present MOUTH: Normal oral and palatal mucosa present Eye: COMMON NORMALS: Equal, round and reactive pupils present, EOMs intact bilaterally, conjunctivae normal and no scleral icterus GENERAL EYE: appearance normal, both eyes and all related structures and normal light reflex CONJUNCTIVA: Yes conjunctivae normal PUPIL: Yes Equal, round and reactive pupils present DIRECT OPHTHALMOSCOPY: Yes normal light reflex Neck/C-Spine: COMMON NORMALS: full ROM, supple, no meningeal signs and no JVD GENERAL: Yes normal visual inspection and Yes trachea midline Resp: COMMON NORMALS: normal respiratory effort, No retractions, No use of accessory muscles and clear to auscultation bilaterally EFFORT & INSPECTION: Yes able to speak in complete sentences AUSCULTATION: clear to auscultation bilaterally Cardio: COMMON NORMALS: no JVD, regular rate and regular rhythm RATE: regular rate RHYTHM: regular rhythm Neuro: COMMON NORMALS: patient oriented x3 SENSORIUM/ORIENTATION: Yes alert, Yes oriented to person, Yes oriented to place and Yes oriented to time MENINGEAL SIGNS: Yes no meningeal signs Psych: APPEARANCE: Yes well kempt Procedures Laceration Laceration 1: Site: face Side (If applicable): right Size (cm): 5 Description: linear ([place]-shaped) and clean Depth: simple, single layer Local Anesthetic: lidocaine 1% Amount of anesthesia used (mL): 10 Pre-repair: wound explored and irrigated extensively Skin layer closed with: nylon Size (cm): 5-0 Number of sutures: 8 Technique: simple, interrupted Laceration 2: Site: face Size (cm): 2 Description: linear (Superficial) and clean Pre-repair: irrigated extensively Skin layer closed with: other (Steri-Strips) Course Vital Signs: Vital signs: Vital Signs Temperature 97.6 F 11/16/20 05:49 Pulse Rate 71 11/16/20 05:49 Respiratory Rate 18 11/16/20 05:49 Blood Pressure 146/76 11/16/20 05:49 Pulse Oximetry 96 11/16/20 05:49 Discharge Plan Discharge Patient Disposition: Home Clinical Impression: Facial laceration Qualifiers: Encounter type: initial encounter Qualified Code(s): S01.81XA - Laceration without foreign body of other part of head, initial encounter Facial trauma Qualifiers: Encounter type: initial encounter Qualified Code(s): S09.93XA - Unspecified injury of face, initial encounter Condition: Stable Prescriptions: New Bactrim DS 800-160 mg tablet 1 tab PO BID Qty: 14 RF: 0 No Action atorvastatin 10 mg tablet 10 mg PO BEDTIME Qty: 30 RF: 2 buspirone 15 mg tablet 15 mg PO DAILY PRN (Reason: Anxiety) Qty: 30 RF: 2 calcium carbonate-vitamin D3 500mg (1,250mg) -600 unit tablet 1 tab PO BID Qty: 60 RF: 2 cyclobenzaprine 10 mg tablet 10 mg PO BEDTIME Qty: 30 RF: 2 Tresiba FlexTouch U-200 200 unit/mL (3 mL) insulin pen 40 unit SUBCUT BID Qty: 9 RF: 2 insulin lispro [Humalog KwikPen Insulin] 100 unit/mL insulin pen 3 - 22 unit SUBCUT TID Qty: 15 RF: 0 Victoza 3-Karan 0.6 mg/0.1 mL (18 mg/3 mL) pen injector 1.8 mg SUBCUT DAILY Qty: 9 RF: 2 (DME) pen needle, diabetic 32 gauge x 5/32 needle See Rx Instructions ea .ROUTE .MEDSUPPLY Qty: 200 RF: 5 sertraline 50 mg tablet 50 mg PO DAILY Qty: 30 RF: 2 tamsulosin 0.4 mg capsule 0.4 mg PO DAILY Qty: 30 RF: 2 amlodipine [Norvasc] 5 mg tablet 5 mg PO DAILY Qty: 30 RF: 2 (DME) cpap See Rx Instructions .Route .MEDSUPPLY Qty: 1 RF: 0 indomethacin 50 mg capsule 50 mg PO TID 7 Days Qty: 21 RF: 0 vardenafil [Levitra] 20 mg tablet 20 mg PO DAILY PRN (Reason: Erectile Dysfunction) Qty: 30 RF: 0 Discharge Orders: Discharge ED (Routine); Ordered 11/16/20 Ordered By: Zackary Concepcion Referrals: Jameson Beal, [facility] [Primary Care Provider] - Discharge Diet: Advance as tolerated Discharge Activity: Resume usual activity Patient Instructions: Opioid Safety Activity Restrictions/Additional Instructions: Follow-up with your primary care provider. Coding Level of Care Code ED Senior Data Quality Analyst for Juan Jose Fwd Exam Detailed
== END 2020-11-16 06:09 | disposition home or self-care (01) ==
PROVIDERS: Emergency Provider Emergency Medicine; PCP Nurse Practitioner
DX: S01.81XA Laceration without foreign body of other part of head, initial encounter (principal); Z79.4 Long term (current) use of insulin; I12.9 Hypertensive chronic kidney disease with stage 1 through stage 4 chronic kidney disease, or unspecified chronic kidney disease; E11.22 Type 2 diabetes mellitus with diabetic chronic kidney disease; N18.30 Chronic kidney disease, stage 3 unspecified; J44.9 Chronic obstructive pulmonary disease, unspecified; Z87.891 Personal history of nicotine dependence; Z23 Encounter for immunization; W06.XXXA Fall from bed, initial encounter
CPT/HCPCS: 12013; 70450; 70486; 90471; 90714; 99283

== ENCOUNTER → 2020-11-23 13:29 | Outpatient (BNVA) | payer MEDICARE, SELFPAY | PROVIDERS: PCP Nurse Practitioner; Visit Provider Nurse Practitioner Family | DX: M79.674 Pain in right toe(s) (principal); M79.89 Other specified soft tissue disorders; M10.9 Gout, unspecified | CPT/HCPCS: 80053; 84550; 85025 ==

== ENCOUNTER → 2020-12-14 10:29 | Outpatient (BNVA) | payer MEDICARE, SELFPAY | PROVIDERS: PCP Nurse Practitioner; Visit Provider Nurse Practitioner | DX: E11.8 Type 2 diabetes mellitus with unspecified complications (principal); Z79.4 Long term (current) use of insulin; F41.9 Anxiety disorder, unspecified; R39.11 Hesitancy of micturition; I10 Essential (primary) hypertension; E55.9 Vitamin D deficiency, unspecified; J43.9 Emphysema, unspecified | CPT/HCPCS: 83036 ==

== ENCOUNTER → 2021-01-24 09:56 | Outpatient (BNVA) | payer MEDICARE, SELFPAY | PROVIDERS: PCP Nurse Practitioner; Visit Provider Internal Medicine Nephrology | DX: N18.30 Chronic kidney disease, stage 3 unspecified (principal); E55.9 Vitamin D deficiency, unspecified | CPT/HCPCS: 80069; 82043; 82306; 82310; 83970; 85025 ==

== ENCOUNTER → 2021-03-25 10:17 | Outpatient (BNVA) | payer MEDICARE, SELFPAY | PROVIDERS: PCP Nurse Practitioner; Visit Provider Nurse Practitioner | DX: E11.8 Type 2 diabetes mellitus with unspecified complications (principal); Z79.4 Long term (current) use of insulin; I10 Essential (primary) hypertension | CPT/HCPCS: 80053; 82306; 83036 ==

== ENCOUNTER → 2021-06-20 10:30 | Outpatient (BNVA) | payer MEDICARE, SELFPAY | PROVIDERS: PCP Nurse Practitioner; Visit Provider Nurse Practitioner | DX: J43.9 Emphysema, unspecified (principal); I10 Essential (primary) hypertension; E11.8 Type 2 diabetes mellitus with unspecified complications; Z79.4 Long term (current) use of insulin; E55.9 Vitamin D deficiency, unspecified | CPT/HCPCS: 80053; 80061; 82306; 83036 ==

== ENCOUNTER → 2021-09-16 10:18 | Outpatient (BNVA) | payer MEDICARE, SELFPAY | PROVIDERS: PCP Nurse Practitioner; Visit Provider Nurse Practitioner | DX: E11.8 Type 2 diabetes mellitus with unspecified complications (principal); Z79.4 Long term (current) use of insulin; E55.9 Vitamin D deficiency, unspecified | CPT/HCPCS: 80053; 80061; 82306; 83036; 85025 ==

== ENCOUNTER → 2021-12-20 14:02 | Outpatient (BNVA) | payer MEDICARE, SELFPAY | PROVIDERS: PCP Nurse Practitioner; Visit Provider Nurse Practitioner | DX: E11.8 Type 2 diabetes mellitus with unspecified complications (principal); Z79.4 Long term (current) use of insulin | CPT/HCPCS: 80053; 83036 ==

== ENCOUNTER 2022-01-06 06:00 | Outpatient (RCR) | payer MEDICARE, SELFPAY | END 2022-01-12 23:59 | disposition home or self-care (01) | LOC: APT 06:00 | PROVIDERS: PCP Nurse Practitioner; Referring Provider Nurse Practitioner; Visit Provider Nurse Practitioner | DX: R26.89 Other abnormalities of gait and mobility (principal) | CPT/HCPCS: 97110; 97162 ==

== ENCOUNTER 2022-01-13 06:00 | Outpatient (RCR) | payer MEDICARE, SELFPAY | END 2022-02-12 23:59 | disposition home or self-care (01) | LOC: APT 06:00 | PROVIDERS: PCP Nurse Practitioner; Referring Provider Nurse Practitioner; Visit Provider Nurse Practitioner | DX: R26.89 Other abnormalities of gait and mobility (principal) | CPT/HCPCS: 97110 ==

== ENCOUNTER → 2022-01-30 10:27 | Outpatient (BNVA) | payer MEDICARE, SELFPAY | PROVIDERS: PCP Nurse Practitioner; Visit Provider Internal Medicine Nephrology | DX: N18.31 Chronic kidney disease, stage 3a (principal) | CPT/HCPCS: 80069; 82043; 82310; 83970; 85025 ==

== ENCOUNTER 2022-02-13 06:00 | Outpatient (RCR) | payer MEDICARE, SELFPAY | END 2022-03-15 23:59 | disposition home or self-care (01) | LOC: APT 06:00 | PROVIDERS: PCP Nurse Practitioner; Referring Provider Nurse Practitioner; Visit Provider Nurse Practitioner | DX: R26.89 Other abnormalities of gait and mobility (principal) | CPT/HCPCS: 97110 ==

== ENCOUNTER → 2022-03-14 14:32 | Outpatient (BNVA) | payer MEDICARE, SELFPAY | PROVIDERS: PCP Nurse Practitioner; Visit Provider Nurse Practitioner | DX: E11.8 Type 2 diabetes mellitus with unspecified complications (principal); Z79.4 Long term (current) use of insulin; E55.9 Vitamin D deficiency, unspecified | CPT/HCPCS: 80053; 80061; 82306; 83036 ==

== ENCOUNTER 2022-03-16 06:00 | Outpatient (RCR) | payer MEDICARE, SELFPAY | END 2022-03-31 23:59 | disposition home or self-care (01) | LOC: APT 06:00 | PROVIDERS: PCP Nurse Practitioner; Visit Provider Nurse Practitioner | DX: R26.89 Other abnormalities of gait and mobility (principal); M79.674 Pain in right toe(s); M79.89 Other specified soft tissue disorders | CPT/HCPCS: 84550; 97110 ==

== ENCOUNTER 2022-04-29 15:09 | Observation (INO) | payer MEDICARE, OTHER, SELFPAY ==
--- NOTE | 2022-04-29 15:17 | ECG_ITS ---
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 Measurements Intervals [place] Rate: 56 P: 41 [place]: 200 QRS: 102 QRSD: 125 T: -6 QT: 400 QTc: 388 Interpretive Statements SINUS BRADYCARDIA RIGHT AXIS DEVIATION [QRS AXIS > 100] MODERATE INTRAVENTRICULAR CONDUCTION DELAY [110+ ms QRS DURATION] ABNORMAL QRS-T ANGLE [QRS-T AXIS DIFFERENCE > 60] Compared to ECG 08/11/2019 01:08:53 Right-axis deviation now present Intraventricular conduction delay now present Sinus rhythm no longer present Electronically Signed On 04-30-2022 22:00:59 CDT by Lyle Godfrey M.D. [email or web address]
--- NOTE | 2022-04-29 15:17 | XRR_ITS ---
PROCEDURE INFORMATION: Exam: XR Chest Exam date and time: 04/29/2022 3:33 PM Age: 81 years old Clinical indication: Other: Syncope TECHNIQUE: Imaging protocol: Radiologic exam of the chest. Views: 1 view. COMPARISON: CR XR chest 1V portable [id number] 08/10/2019 6:49 PM FINDINGS: Lungs: Suboptimal visualization secondary to a rotational component in positioning. No large consolidation seen. Pleural spaces: Unremarkable. No pleural effusion. No pneumothorax. Heart/Mediastinum: Unremarkable. No cardiomegaly. Diaphragm: Elevation of the left hemidiaphragm similar to the prior study. Bones/joints: Unremarkable. XR/XR chest 1V portable [id number] IMPRESSION: No acute findings.Non acute findings as described above.
--- NOTE | 2022-04-29 15:18 | W.ED.GENADLT ---
HPI - General Adult General: Chief complaint: Syncope Stated complaint: syncope Time Seen by Provider: 04/29/22 15:17 History of Present Illness: Patient is an 81-year-old male with a history of COPD, hypertension, hyperlipidemia who presents the emergency room with syncope x 2. Patient Was Noted to Have Loose Stool Earlier Today. However around 11 AM, Patient Had Episode of Witnessed Syncope by . Patient Did Not Hit His Head. Patient Was Diaphoretic and Pale Prior to the Episode of Syncope. In Addition, Shortly after EMS Was Called, Patient Also Had Another Episode of Syncope When EMS Arrived. Patient Has No Associated Chest Pain, Short Breath Palpitation or Lightheadedness Prior to the episodes of syncope. Denies nausea/vomiting, fever/chill, chest pain, shortness of breath, abdominal pain, dysuria/hematuria/polyuria, diarrhea/melena/hematochezia. Onset:earlier today Duration:ongoing Location:home Severity:moderate Associated symptoms: Deny chest pain, dyspnea, nausea, rash, palpitations or vomiting Review of Systems Const: Denies: fever(s) or chills Eyes: Denies: change in vision ENMT: Denies: mouth pain Card: Denies: chest pain or palpitations Resp: Denies: dyspnea or non-productive cough GI: Reports: diarrhea; Denies: abdominal pain, nausea or vomiting : Denies: dysuria Musc: Denies: extremity pain Skin/Breast: Denies: rash or new lesions Neuro: Reports: other (+syncope x 2 episodes); Denies: weakness in extremities Psych: Reports: other (Normal mood) Sanjay/Lymph: Denies: easy bruising PFSH ED PFSH: Medical History Anxiety Chronic kidney disease (CKD), stage III (moderate) 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, 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 Encounter for screening colonoscopy Essential (primary) hypertension 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 Obstructive sleep apnea syndrome Vitamin D insufficiency Surgical History H/O esophagogastroduodenoscopy 09/02/2019: Mild gastritis History of cataract surgery Both eyes History of colonoscopy with polypectomy (~2009) 09/02/2019: 3 mm sessile polyp x2 descending colon Family History Mother Family history non-contributory Father Obesity Denies family history of Anesthesia complication Bleeding disorder Social History Smoking and tobacco status: former smoker Quit status (tobacco): has quit using tobacco Former quit date comment: 3 months ago Second hand smoke exposure: No Alcohol intake: current Alcohol intake frequency: holidays/special occasions only Alcohol type: beer Desire information about alcohol rehabilitation?: No Counseling given: No Desire information about substance/drug rehabilitation?: No Counseling given: No Adopted: No Caregiver/support person: Yes Lives independently: Yes Household members: spouse Housing: House Marital status: Highest education level completed: High School Graduate service: Yes status: Retired branch: [employer] Current occupational status: retired Current occupational exposures/hazards: No Pets and animals: No History of recent travel: No Sexually active: No Current gender identity: Male Arin/Jain: Confucianist Special arin needs: No Agree to transfusion: No Financial difficulty paying for basics: Decline to Answer Physical Exam Const: COMMON NORMALS: alert HENMT: COMMON NORMALS: atraumatic HEAD & SCALP: atraumatic MOUTH: moist mucous membranes not abnormal Eye: COMMON NORMALS: EOMs intact bilaterally and conjunctivae normal CONJUNCTIVA: Yes conjunctivae normal Neck/C-Spine: COMMON NORMALS: full ROM and supple Resp: COMMON NORMALS: normal respiratory effort and clear to auscultation bilaterally AUSCULTATION: clear to auscultation bilaterally Cardio: COMMON NORMALS: regular rate RATE: regular rate GI: COMMON NORMALS: Soft to palpation and non-tender PALPATION: Yes Soft to palpation OTHER: No focal TTP. NO guarding rebound, guarding, rigidity. No CVA tenderness to percussion. Neg Moran/Neg McBurney's point tenderness, no suprabupic tenderness to palpation. Extremity: COMMON NORMALS: full ROM Neuro: SENSORIUM/ORIENTATION: Yes alert MOTOR EXAM: No Abnormal motor strength present and Other motor observations present (no focal motor deficits) OTHER: Cranial nerves II through XII grossly intact, strength 5 out of 5 in all extremities, sensation intact in all extremities, AAOx3 ? Gait/stance? Gait with assistance intact Psych: COMMON NORMALS: speech normal SPEECH: Yes normal speech MOOD & AFFECT: Yes euthymic mood Course Vital Signs: Vital signs: Vital Signs Temperature 98.1 F 04/29/22 15:35 Pulse Rate 60 04/29/22 15:35 Respiratory Rate 18 04/29/22 15:35 Blood Pressure 111/62 04/29/22 16:14 Pulse Oximetry 96 04/29/22 16:14 Oxygen Delivery Me thod 04/29/22 15:35 MDM - General Adult Medical Decision Making Patient is an 81-year-old male with a history of COPD, hypertension, hyperlipidemia who presents the emergency room with syncope x 2. Patient is neurologically intact. When ambulating, patient is not experiencing lightheadedness. Patient normally walks with a walker and had to be assisted for ambulation exam. Patient appears to be dry mucous membrane exam. Patient received IVF reports feeling symptomatically improved. Patient is noted to have Cr 1.7 up from baseline 1.3. I suspect today's symptoms likely dehydration. However given age and syncope x 2, we will admit for observation. Disposition: Admission Lab Data : 04/29/22 16:37 04/29/22 16:37 Radiology Impressions Chest X-Ray 04/29/22 15:17 IMPRESSION: No acute findings.Non acute findings as described above. Head CT 04/29/22 15:17 IMPRESSION: There are senescent changes of the brain as described above. No evidence for large acute ischemic infarction or acute intracranial injury. Laboratory Results WBC 2.1 10^3/uL (4.0-10.0) L 04/29/22 16:37 RBC 3.68 10^6/uL (4.1-5.3) L 04/29/22 16:37 Hgb 12.2 g/dL (11.7-16.6) 04/29/22 16:37 Hct 35.8 % (42.0-52.0) L 04/29/22 16:37 MCV 97.3 fl (80-94) H 04/29/22 16:37 MCH 33.2 pg (28.0-34.0) 04/29/22 16:37 MCHC 34.1 g/dL (30.0-36.0) 04/29/22 16:37 RDW 12.2 % (12.1-15.1) 04/29/22 16:37 Plt Count 84 10^3/cmm (130-400) L 04/29/22 16:37 MPV 11.1 fL (7.4-10.4) H 04/29/22 16:37 Neut % (Auto) 48.5 % 04/29/22 16:37 Lymph % (Auto) 29.0 % 04/29/22 16:37 [place] % (Auto) 18.7 % 04/29/22 16:37 Eos % (Auto) 0.5 % 04/29/22 16:37 Baso % (Auto) 0.5 % 04/29/22 16:37 Neut # (Auto) 1.04 10^3/uL (1.8-7.7) L 04/29/22 16:37 Lymph # (Auto) 0.6 10^3/uL (0.8-4.8) L 04/29/22 16:37 [place] # (Auto) 0.4 10^3/uL (0.2-0.9) 04/29/22 16:37 Eos # (Auto) 0.0 10^3/uL (0.0-0.8) 04/29/22 16:37 Baso # (Auto) 0.0 10^3/uL (0.0-0.1) 04/29/22 16:37 Nucleated RBC % (auto) 0 % 04/29/22 16:37 Nucleated RBCs # 0.0 /100WBC 04/29/22 16:37 Sodium 128 mmol/L (136-145) L 04/29/22 16:37 Potassium 4.4 mmol/L (3.5-5.1) 04/29/22 16:37 Chloride 96 mmol/L (98-107) L 04/29/22 16:37 Carbon Dioxide 24 mmol/L (22-29) 04/29/22 16:37 Anion Gap 12.4 (5-19) 04/29/22 16:37 BUN 28 mg/dL (8-23) H 04/29/22 16:37 Creatinine 1.7 mg/dL (0.7-1.2) H 04/29/22 16:37 GFR Calculation Not Reportable 04/29/22 16:37 Glucose 168 mg/dL (65-115) H 04/29/22 16:37 Calculated Osmolality 275 mOsm/kg (285-295) L 04/29/22 16:37 Calcium 8.9 mg/dL (8.5-10.5) 04/29/22 16:37 Total Bilirubin 0.3 mg/dL (0.15-1.2) 04/29/22 16:37 AST 43 U/L (0-40) H 04/29/22 16:37 ALT 48 U/L (0-41) H 04/29/22 16:37 Alkaline Phosphatase 67 U/L (40-130) 04/29/22 16:37 Troponin T Baseline 38 ng/L (0-15) H 04/29/22 16:37 Troponin T 120 Minute 31.38 ng/L (0-15) H 04/29/22 18:48 Delta Troponin T -6.62 ABS# (0-10) L 04/29/22 18:48 Total Protein 6.6 g/dL (6.6-8.7) 04/29/22 16:37 Albumin 3.8 g/dL (3.5-5.2) 04/29/22 16:37 Globulin 2.8 g/dL (1.3-4.6) 04/29/22 16:37 Lipase 92 U/L (13-60) H 04/29/22 16:37 Imaging Data Other Imaging: Radiologist's impression: [address] [address] [address] Scan Report Signed Patient: Vik Bruce Unit #: [id number] : 1940 Age/Sex: 81 / M ADM Date: 04/29/22 Loc: ER Room/Bed: Attending Dr: Ordering Provider/Ordering MD: Alexia Joy MD Date of Service: 04/29/22 Procedure(s): CT head wo con* [id number] Accession Number(s): [id number] Report Number: [id number] PROCEDURE INFORMATION: Exam: CT Head Without Contrast Exam date and time: 04/29/2022 4:01 PM Age: 81 years old Clinical indication: Syncope and collapse TECHNIQUE: Imaging protocol: Computed tomography of the head without contrast. Radiation optimization: All CT scans at this facility use at least one of these dose optimization techniques: automated exposure control; mA and/or kV adjustment per patient size (includes targeted exams where dose is matched to clinical indication); or iterative reconstruction. COMPARISON: CT head wo con* [id number] 11/16/2020 5:28 AM RADIATION DOSE METRICS: Total DLP (mGy-cm): 1158.78 FINDINGS: Brain: There is diffuse cerebral atrophy present, consistent with this patient's age. Periventricular and subcortical white matter low densities are present which at this age likely represent microvascular ischemic change. No evidence for large acute ischemic infarction. Please note acute ischemia can be occult by head CT. No evidence for acute intracranial hemorrhage. Calcified plaque is present within the intracranial vasculature. Cerebral ventricles: No ventriculomegaly. Paranasal sinuses: Visualized sinuses are unremarkable. No fluid levels. Mastoid air cells: Visualized mastoid air cells are well aerated. Bones/joints: Unremarkable. No acute fracture. Soft tissues: Unremarkable. CT/CT head wo con* [id number] IMPRESSION: There are senescent changes of the brain as described above. No evidence for large acute ischemic infarction or acute intracranial injury. ? Dictated By: Abigail Goetz MD Signed By: Abigail Goetz MD Signed Date/Time: 04/29/22 1614 DD/ [address] [address] XRay Report Signed Patient: Vik Bruce Unit #: [id number] : 1940 Age/Sex: 81 / M ADM Date: 04/29/22 Loc: ER Room/Bed: Attending Dr: Ordering Provider/Ordering MD: Alexia Joy MD Date of Service: 04/29/22 Procedure(s): XR chest 1V portable [id number] Accession Number(s): [id number] Report Number: [id number] PROCEDURE INFORMATION: Exam: XR Chest Exam date and time: 04/29/2022 3:33 PM Age: 81 years old Clinical indication: Other: Syncope TECHNIQUE: Imaging protocol: Radiologic exam of the chest. Views: 1 view. COMPARISON: CR XR chest 1V portable [id number] 08/10/2019 6:49 PM FINDINGS: Lungs: Suboptimal visualization secondary to a rotational component in positioning. No large consolidation seen. Pleural spaces: Unremarkable. No pleural effusion. No pneumothorax. Heart/Mediastinum: Unremarkable. No cardiomegaly. Diaphragm: Elevation of the left hemidiaphragm similar to the prior study. Bones/joints: Unremarkable. XR/XR chest 1V portable [id number] IMPRESSION: No acute findings.Non acute findings as described above. ? Dictated By: Abigail Goetz MD Signed By: Abigail Goetz MD Signed Date/Time: 04/29/22 1604 DD/ 1533 Discharge Plan Discharge Patient Disposition: Placed in Observation Admit Provider: Blas Pineda Clinical Impression: Syncope and collapse Coding Level of Care Code ED Bullard Operator for Chg Fwd Exam Comprehensive
[2022-04-29 15:35] VITALS: BP 113/63; PULSE 60; RESP 18; TEMP 36.7; O2SAT 96; BMI 31.7
[2022-04-29] MEDS: sodium chloride 0.9% 500 ML IV (15:43)
[2022-04-29 16:14] VITALS: BP 111/62; O2SAT 96
[2022-04-29 16:57] LABS: Basophils % 0.5 %; Eosinophils % 0.5 %; Hematocrit 35.8 % (42.0-52.0); Hemoglobin 12.2 g/dL (11.7-16.6); Lymphocytes # 0.6 10^3/uL (0.8-4.8); Mean Corpuscular HGB Conc 34.1 g/dL (30.0-36.0); Mean Corpuscular Hemoglobin 33.2 pg (28.0-34.0); Mean Corpuscular Volume 97.3 fl (80-94); Mean Platelet Volume 11.1 fL (7.4-10.4); Monocytes # 0.4 10^3/uL (0.2-0.9); Monocytes % 18.7 %; Neutrophils # 1.04 10^3/uL (1.8-7.7); Neutrophils % 48.5 %; Nucleated Red Blood Cells % 0 %; Platelet Count 84 10^3/cmm (130-400); Red Blood Count 3.68 10^6/uL (4.1-5.3); Red Cell Distribution Width 12.2 % (12.1-15.1); White Blood Count 2.1 10^3/uL (4.0-10.0)
--- NOTE | 2022-04-29 17:04 | ECG_ITS ---
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 Measurements Intervals [place] Rate: 72 P: 37 DE: 193 QRS: 85 QRSD: 130 T: 3 QT: 398 QTc: 436 Interpretive Statements SINUS RHYTHM POSSIBLE LATERAL MYOCARDIAL INFARCTION , OF INDETERMINATE AGE [30 ms Q WAVE IN I/aVL/V5/V6] Compared to ECG 04/29/2022 15:29:08 Myocardial infarct finding now present Sinus bradycardia no longer present Right-axis deviation no longer present Intraventricular conduction delay no longer present Electronically Signed On 04-30-2022 22:09:23 CDT by Lyle Godfrey M.D. [id number]
[2022-04-29 17:22] LABS: Alanine Aminotransferase 48 U/L (0-41); Albumin Level 3.8 g/dL (3.5-5.2); Alkaline Phosphatase 67 U/L (40-130); Anion Gap 12.4 (5-19); Aspartate Amino Transferase 43 U/L (0-40); Blood Urea Nitrogen 28 mg/dL (8-23); Calcium 8.9 mg/dL (8.5-10.5); Carbon Dioxide 24 mmol/L (22-29); Chloride 96 mmol/L (98-107); Globulin 2.8 g/dL (1.3-4.6); Glucose 168 mg/dL (65-115); Lipase 92 U/L (13-60); Osmolality Calculated 275 mOsm/kg (285-295); Potassium 4.4 mmol/L (3.5-5.1); Sodium 128 mmol/L (136-145); Total Bilirubin 0.3 mg/dL (0.15-1.2); Total Protein 6.6 g/dL (6.6-8.7); Troponin(5th) Baseline 38 ng/L (0-15)
[2022-04-29 19:23] LABS: Troponin 5 2HR 31.38 ng/L (0-15)
[2022-04-29 19:37] LABS: Troponin 5 2HR Delta -6.62 ABS# (0-10)
--- NOTE | 2022-04-29 19:39 | USCV_ITS ---
Chepeorlando Vik Age: 81 Gender: M : 1940 Exam Date: 04/29/2022 20:31 Ordering Phys: Lawrence Aguero MD Technologist: Shannan Fiore Exam Location: [facility] [place] Indication: SYNCOPE BP: 111 / 62 HR: 64 Rhythm: Sinus Technical Quality: Adequate MEASUREMENTS (Male / Female) Normal Values 2D ECHO LV Diastolic Diameter PLAX 2.8 cm 4.2 - 5.9 / 3.9 - 5.3 cm LV Systolic Diameter PLAX 2.1 cm LV Chamber Size 3.3 cm IVS Diastolic Thickness 1.0 cm 0.6 - 1.0 / 0.6 - 0.9 cm IVS Systolic Thickness 1.3 cm LVPW Diastolic Thickness 1.1 cm 0.6 - 1.0 / 0.6 - 0.9 cm LVPW Systolic Thickness 1.5 cm RV Chamber Size 3.0 cm LVOT Diameter 2.0 cm LV Ejection Fraction 2D Teich 61.8 % LV Ejection Fraction MOD 2C 81.4 % LV Ejection Fraction 2C AL 82.4 % LA Diameter 3.2 cm LA Width 2.3 cm LA Height 4.2 cm RA Width 3.9 cm RA Height 3.8 cm Aorta at Sinotubular Diameter 2.7 cm IVC Diameter 2.0 cm M-MODE Aortic Annulus Diameter 3.7 cm LA Ao Ratio MM 1.0 MV E Point Septal Separation 1.4 cm DOPPLER AV Peak Velocity 134.0 cm/s LVOT Peak Velocity 101.0 cm/s AV Area Cont Eq vti 3.1 cm squared AV Area Cont Eq pk 2.4 cm squared MV Area PHT 2.0 cm squared Mitral E to A Ratio 0.7 MV E' Velocity 39.5 cm/s Mitral E to MV E' Ratio 13.0 Mitral E to LV E' Lateral Ratio 9.0 Mitral E to LV E' Septal Ratio 23.8 TR Peak Velocity 134.7 cm/s TR Peak Gradient 7.3 mmHg TR Mean Velocity 91.8 cm/s TR Mean Gradient 4.0 mmHg TR Velocity Time Integral 29.7 cm TV Peak E Velocity 52.0 cm/s Right Atrial Pressure 3.0 mmHg Pulmonary Artery Systolic Pressu 10.3 mmHg RV Acceleration Time 0.1 s RV Ejection Time 0.3 s RV AcT/ET 0.4 FINDINGS Left Ventricle Technically limited quality echocardiogram because of poor ultrasonic windows. Left ventricle is normal size. LV systolic function is normal with EF of 60 to 65%. No regional wall motion abnormalities are seen. Grade 1 diastolic dysfunction Right Ventricle Grossly normal Right Atrium Normal in size Left Atrium Normal in size Mitral Valve Grossly normal Aortic Valve Not well visualized. No significant stenosis or regurgitation Tricuspid Valve Trace tricuspid regurgitation. Insufficient TR jet to calculate RVSP. Pulmonic Valve Not well-visualized Pericardium Trace pericardial effusion Aorta Normal in size IVC CONCLUSIONS Technically limited quality echocardiogram because of poor ultrasonic windows. LV systolic function is normal with EF of 60 to 65%. Grade 1 diastolic dysfunction Valvular structures are not very well visualized. Trace tricuspid regurgitation Trace pericardial effusion No comparison studies are available Lyle Godfrey MD (Electronically Signed) Final Date: 30 April 2022 10:45 S
--- NOTE | 2022-04-29 19:40 | P.HP_ITS ---
Providers/Chief Complaint Admitting Physician: Blas Pineda MD Primary Care Provider: DIAN JusticeP-C Chief Complaint: syncope History of Present Illness Pleasant 81-year-old gentleman presented to ER due to episodes of falling down, with lightheadedness, unsteady gait, and loss of consciousness. Denies any chest pain or pressure. Denies prodromal symptoms, although does get lightheaded when standing up. Last several days has been having sore throat. Yesterday had an episode of diarrhea. Denies any headache, no cough, no vomiting. One of the syncopal episodes witnessed by EMS. No seizure-like activity. Review of Systems Const: Denies: fever(s), chills, body aches or malaise Eyes: Denies: change in vision, eye discomfort or eye redness ENMT: Reports: throat pain and odynophagia; Denies: oral sores or ear or mastoid pain Card: Reports: lightheadedness, syncope and pre-syncope; Denies: chest pain, edema or dyspnea on exertion Resp: Denies: dyspnea, productive cough, change in phlegm color or hemoptysis GI: Denies: abdominal pain, nausea, vomiting, diarrhea, constipation, hematochezia or melena : Denies: flank pain, difficulty urinating, urinary frequency or hematuria Musc: Denies: back pain, joint swelling or joint redness Skin/Breast: Denies: rash or new lesions Neuro: Reports: frequent falls and dizziness; Denies: headache(s), numbness in extremities, weakness in extremities, confusion or seizure-like activity Endo: Denies: polyuria or polydipsia Sanjay/Lymph: Denies: easy bleeding or tender lymph nodes All/Imm: Denies: urticaria or tongue swelling Medications/Allergies Home Medications Medication Instructions Recorded Confirmed Last Taken Type cpap #1 ea 01/15/20 04/29/22 Unknown Rx diabetic shoes with inserts #1 ea 01/07/21 04/29/22 Unknown Rx pen needle, diabetic 32 gauge x #200 ea 09/20/21 04/29/22 Unknown Rx / calcium carbonate 500 mg-vitamin 1 tab PO BID #60 tabs 12/22/21 04/29/22 04/28/22 Rx D3 15 mcg (600 unit) tablet sertraline 50 mg tablet 50 mg PO DAILY #30 tabs 12/22/21 04/29/22 04/28/22 Rx albuterol sulfate 90 mcg/actuation 2 puff inhalation Q6H PRN 03/16/22 04/29/22 Unknown Rx aerosol inhaler (Ventolin HFA) shortness of breath or wheezing #8.5 grams amlodipine 5 mg tablet (Norvasc) 5 mg PO DAILY #30 tabs 03/16/22 04/29/22 04/28/22 Rx atorvastatin 10 mg tablet 10 mg PO BEDTIME #30 tabs 03/16/22 04/29/22 04/28/22 Rx buspirone 15 mg tablet 15 mg PO DAILY PRN Anxiety #30 tabs 03/16/22 04/29/22 Unknown Rx cyclobenzaprine 10 mg tablet 10 mg PO BEDTIME #30 tabs 03/16/22 04/29/22 04/28/22 Rx insulin degludec 200 unit/mL (3 50 unit (0.25 mL) SUBCUT BID #9 mL 03/16/22 04/29/22 04/28/22 Rx mL) subcutaneous pen (Tresiba FlexTouch U-200 insulin) tamsulosin 0.4 mg capsule 0.4 mg PO DAILY #30 caps 03/16/22 04/29/22 04/28/22 Rx semaglutide 1 mg/dose (4 mg/3 mL) 1 mg SUBCUT Q7D 04/29/22 04/29/22 04/24/22 History subcutaneous pen injector (Ozempic) Allergies Allergy/AdvReac Type Severity Reaction Status Date / Time Penicillins Allergy Unknown Unknown Verified 03/16/22 13:57 PFSH Acute PFSH: Medical History Anxiety Chronic kidney disease (CKD), stage III (moderate) 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, 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 Encounter for screening colonoscopy Essential (primary) hypertension 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 Obstructive sleep apnea syndrome Vitamin D insufficiency Surgical History H/O esophagogastroduodenoscopy 09/02/2019: Mild gastritis History of cataract surgery Both eyes History of colonoscopy with polypectomy (~2009) 09/02/2019: 3 mm sessile polyp x2 descending colon Family History Mother Family history non-contributory Father Obesity Denies family history of Anesthesia complication Bleeding disorder Social History Smoking and tobacco status: former smoker Quit status (tobacco): has quit using tobacco Former quit date comment: 3 months ago Second hand smoke exposure: No Alcohol intake: current Alcohol intake frequency: holidays/special occasions only Alcohol type: beer Desire information about alcohol rehabilitation?: No Counseling given: No Desire information about substance/drug rehabilitation?: No Counseling given: No Adopted: No Caregiver/support person: Yes Lives independently: Yes Household members: spouse Housing: House Marital status: Highest education level completed: High School Graduate service: Yes status: Retired branch: [employer] Current occupational status: retired Current occupational exposures/hazards: No Pets and animals: No History of recent travel: No Sexually active: No Current gender identity: Male Arin/Zoroastrian: Holiness Special arin needs: No Agree to transfusion: No Financial difficulty paying for basics: Decline to Answer Vitals/I&O/Wt Last Vital Signs Temp 98.1 F 04/29/22 15:35 Pulse 60 04/29/22 15:35 Resp 18 04/29/22 15:35 BP 111/62 04/29/22 16:14 Pulse Ox 96 04/29/22 16:14 O2 Del Method 04/29/22 15:35 Weight last 48 hrs Weight 97.522 kg Physical Exam Narrative: at bedside Const: COMMON NORMALS: patient oriented x3 and alert GENERAL APPEARANCE: cooperative NUTRITIONAL APPEARANCE: overweight ORIENTATION/CONSCIOUSNESS: Yes awake HENMT: COMMON NORMALS: oropharynx normal OTHER: Minimal retropharyngeal erythema Neck/C-Spine: COMMON NORMALS: no JVD Resp: COMMON NORMALS: normal respiratory effort and clear to auscultation bilaterally AUSCULTATION: clear to auscultation bilaterally Cardio: COMMON NORMALS: no JVD, regular rhythm, S1 normal heart sound present, S2 normal heart sound present and No murmurs present (Cardio) RHYTHM: regular rhythm HEART SOUNDS: S1 normal heart sound present and S2 normal heart sound present GI: COMMON NORMALS: Normal to inspection, nondistended, normoactive bowel sounds present, Soft to palpation and non-tender PALPATION: Yes Soft to palpation Extremity: COMMON NORMALS: no joint enlargement and no pedal edema Neuro: COMMON NORMALS: patient oriented x3 and moves all extremities SENSORIUM/ORIENTATION: Yes alert Skin: COMMON NORMALS: no rashes or lesions noted GENERAL SKIN EXAM: no rashes or lesions noted Data : 04/29/22 16:37 04/29/22 16:37 A&P Assessment and plan (1) Syncope and collapse: Has been having difficulty with ambulation, he has been having unsteady gait, but also several episodes of presyncope and syncope recently. Complete troponin EKG series. Assess TTE. Assess carotid Doppler. Currently does appear to have some infection, possibly viral infection, check COVID-19. Reports pharyngitis. Check rapid strep. Otherwise does not appear to be in sepsis. Will check UA. Check TSH, check serum cortisol. Hold amlodipine for now, depending on how he does overnight, as well as blood pressure, assess orthostatics. (2) Acute kidney injury superimposed on CKD: Not clear cause. Blood pressure somewhat soft, hold amlodipine for now. Has BPH. Will check kidney, bladder ultrasound. Check CK. Received fluid challenge. Recheck renal function. (3) Leukopenia: Check COVID-19. Rapid strep. Monospot. Tick panel. (4) Pharyngitis: Mild pharyngitis, I do not see exudates, does have some leukopenia, thrombocytopenia. Check Monospot, rapid strep. COVID-19 PCR. Plan Lipase elevation: Denies abdominal pain. Follow-up level Hyponatremia: Regular diet. Received fluid challenge. Recheck level. Mild transaminitis: Check COVID-19, tick panel. Reassess liver parameters. DM2 CKD 3 COPD HTN ROBBY Other chronic conditions noted as per PMH Attestations Medical Necessity Statement*: Place in observation for additional assessment and management of syncopal episodes, VISH on CKD Coding Level of Care Code Acute Sales And Marketing Assistant for [facility] Diagnoses Syncope and collapse R55 Acute kidney injury superimposed on CKD N17.9; N18.9 Leukopenia D72.819 Pharyngitis J02.9
--- NOTE | 2022-04-29 19:42 | USR_ITS ---
PROCEDURE INFORMATION: Exam: US Duplex Bilateral Extracranial Arteries, Carotid Arteries Exam date and time: 04/29/2022 8:12 PM Age: 81 years old Clinical indication: Alteration of consciousness; Syncope and collapse TECHNIQUE: Imaging protocol: Real-time Duplex ultrasound scan of the bilateral carotid and vertebral arteries combining pond scale, color Doppler and spectral waveform analysis. Bilateral exam. Exam focused on the carotid arteries. COMPARISON: CT head wo con* [id number] 04/29/2022 4:01 PM FINDINGS: Right common carotid artery: Mild atherosclerotic plaque. No occlusion or stenosis. Waveforms are normal. Right internal carotid artery: Mild atherosclerotic plaque. No occlusion or stenosis. Waveforms are normal. Right ICA/CCA ratio: Within normal limits. Right external carotid artery: No stenosis in the origin. Right vertebral artery: Unremarkable. Antegrade flow. Left common carotid artery: Unremarkable. No occlusion or stenosis. Waveforms are normal. Left internal carotid artery: Unremarkable. No occlusion or stenosis. Waveforms are normal. Left ICA/CCA ratio: Within normal limits. Left external carotid artery: No stenosis in the origin. Left vertebral artery: Unremarkable. Antegrade flow. US/CV carotid duplex BI* [id number] IMPRESSION: No carotid arterial stenosis. REFERENCES: SRU CRITERIA. The degree of internal carotid artery stenosis is based on criteria defined by the Society of Radiologists in Ultrasound (SRU). Normal is no stenosis. Mild is less than 50% stenosis. Moderate is 50-69% stenosis. Severe is greater than 69% stenosis to near occlusion. Near occlusion is a markedly narrowed lumen. Total occlusion is no detectable patent lumen.
[2022-04-29 20:00] VITALS: BP 98/68; PULSE 72; PULSE 77; RESP 17; TEMP 37.1; O2SAT 97
--- NOTE | 2022-04-29 20:10 | USR_ITS ---
PROCEDURE INFORMATION: Exam: US Retroperitoneal; Complete; Kidneys and Bladder Exam date and time: 04/29/2022 11:31 PM Age: 81 years old Clinical indication: Condition or disease; Other: Jose; Patient HX: PT in known renal failure. 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 Complete exam focused on the kidneys and bladder. COMPARISON: No relevant prior studies available. FINDINGS: Right kidney: The right kidney is unremarkable without cyst, solid masses, calculi or hydronephrosis. Left kidney: There is a bilobed cyst measuring 19 x 22 x 16 mm in the left kidney. There is no left hydronephrosis. Urinary bladder: There is a mass lesion seen near the base of the bladder. This could be an enlarged prostate. This appears solid. Measures 25 x 18 x 19 mm. US/US renal BI* [id number] IMPRESSION: Bladder lesion. Questionable enlarged prostate. Cannot rule other masses. Consider CT scan. There is no hydronephrosis.
[2022-04-29 21:05] LABS: Monoscreen Negative (Negative)
[2022-04-29 21:17] LABS: Glucose Point of Care 149 mg/dL (70-110)
[2022-04-29 21:41] LABS: Creatine Phosphokinase 84 U/L (39-308); Thyroid Stimulating Hormone 1.34 uIU/mL (0.27-4.20)
[2022-04-29 21:45] VITALS: BP 130/58; BP 79/50; BP 98/68
[2022-04-29] MEDS: insulin lispro 100 unit/1 mL SUBCUT (21:57)
[2022-04-29] MEDS: atorvastatin 40 mg Tablet 10 MG PO (21:57)
[2022-04-29 22:00] VITALS: PULSE 72
[2022-04-29] MEDS: cetylpyridinium Lozenge 1 EACH MUCOUS MEM (22:18)
[2022-04-29 23:08] LABS: Rapid Strep A Test Negative (Negative)
[2022-04-29 23:43] VITALS: BP 96/55; PULSE 64; RESP 17; TEMP 37.5; O2SAT 92
[2022-04-30] MEDS: cetylpyridinium Lozenge 1 EACH MUCOUS MEM ×2 (02:09→04:53)
[2022-04-30 03:02] LABS: Adenovirus Not Detected (NOT DETECT); Chlamydia Pneumoniae Not Detected (NOT DETECT); Coronavirus 229E,HKU1,NL63,OC4 Not Detected (NOT DETECT); Human Metapneumovirus Not Detected (NOT DETECT); Human Rhinovirus/Enterovirus Not Detected (NOT DETECT); Influenza A Not Detected (NOT DETECT); Influenza A H1 Not Detected (NOT DETECT); Influenza A H1-2009 Not Detected (NOT DETECT); Influenza A H3 Not Detected (NOT DETECT); Influenza B Not Detected (NOT DETECT); Mycoplasma Pneumoniae Not Detected (NOT DETECT); Parainfluenza Virus Type 1 Not Detected (NOT DETECT); Parainfluenza Virus Type 2 Not Detected (NOT DETECT); Parainfluenza Virus Type 3 Not Detected (NOT DETECT); Parainfluenza Virus Type 4 Not Detected (NOT DETECT); Respiratory Syncytial Virus A Not Detected (NOT DETECT); Respiratory Syncytial Virus B Not Detected (NOT DETECT); SARS-COV-2 Detected (NOT DETECT)
[2022-04-30 04:00] VITALS: BP 140/66; PULSE 68; RESP 16; TEMP 37.6; O2SAT 94
[2022-04-30 06:00] VITALS: PULSE 58
[2022-04-30 06:12] LABS: Eosinophils % 0.3 %; Hemoglobin 12.2 g/dL (11.7-16.6); Lymphocytes # 1.2 10^3/uL (0.8-4.8); Lymphocytes % 37.7 %; Mean Corpuscular HGB Conc 34.9 g/dL (30.0-36.0); Mean Corpuscular Hemoglobin 33.2 pg (28.0-34.0); Mean Corpuscular Volume 95.1 fl (80-94); Mean Platelet Volume 11.5 fL (7.4-10.4); Monocytes # 0.7 10^3/uL (0.2-0.9); Monocytes % 20.1 %; Neutrophils # 1.32 10^3/uL (1.8-7.7); Neutrophils % 40.7 %; Nucleated Red Blood Cells % 0 %; Platelet Count 83 10^3/cmm (130-400); Red Blood Count 3.68 10^6/uL (4.1-5.3); Red Cell Distribution Width 11.9 % (12.1-15.1); White Blood Count 3.2 10^3/uL (4.0-10.0)
[2022-04-30 06:31] LABS: Glucose Point of Care 126 mg/dL (70-110)
[2022-04-30 06:53] LABS: Alanine Aminotransferase 41 U/L (0-41); Albumin Level 3.6 g/dL (3.5-5.2); Alkaline Phosphatase 61 U/L (40-130); Anion Gap 15.7 (5-19); Aspartate Amino Transferase 35 U/L (0-40); Blood Urea Nitrogen 28 mg/dL (8-23); Calcium 8.6 mg/dL (8.5-10.5); Carbon Dioxide 23 mmol/L (22-29); Chloride 103 mmol/L (98-107); Globulin 2.6 g/dL (1.3-4.6); Glucose 125 mg/dL (65-115); Lipase 102 U/L (13-60); Osmolality Calculated 291 mOsm/kg (285-295); Potassium 4.7 mmol/L (3.5-5.1); Sodium 137 mmol/L (136-145); Total Bilirubin 0.3 mg/dL (0.15-1.2); Total Protein 6.2 g/dL (6.6-8.7)
[2022-04-30 06:55] LABS: Cortisol Random 18.49 ug/dL (2.47-19.5)
[2022-04-30 07:30] VITALS: BP 113/56; PULSE 63; RESP 18; TEMP 37.6; O2SAT 90
[2022-04-30] MEDS: tamsulosin 0.4 mg Capsule PO (08:49)
[2022-04-30] MEDS: sertraline 50 mg Tablet PO (08:49)
[2022-04-30] MEDS: acetaminophen 325 mg Tablet 650 MG PO (08:53)
[2022-04-30 11:23] LABS: Glucose Point of Care 179 mg/dL (70-110)
[2022-04-30 11:30] VITALS: BP 111/59; PULSE 67; RESP 18; TEMP 37.7; O2SAT 92
[2022-04-30] MEDS: insulin lispro 100 unit/1 mL SUBCUT (11:46)
--- NOTE | 2022-04-30 14:42 | PC.PT ---
Discussed patient with patient's nurse, who states Dr. Peck, just saw patient and is planning to discharge him this afternoon, patient nurse states patient safely independent with transfers and ambulation in room, and appears to have no need of PT evaluation. Will follow, should this change.
[2022-04-30 15:58] VITALS: BP 114/61; PULSE 68; RESP 16; TEMP 37.5; O2SAT 91
--- NOTE | 2022-04-30 16:30 | P.DS_ITS ---
Discharge Providers Date of Admission: 04/29/22 19:53 Date of Discharge: April 30, 2022 Attending Provider at Admission: Blas Pineda MD Attending Provider at Discharge: Lawrence Aguero Primary Care Provider: ANEL Justice Diagnoses at Discharge Discharge Diagnosis (1) Syncope and collapse: Status: Acute (2) Acute kidney injury superimposed on CKD: Status: Acute (3) Leukopenia: Status: Acute (4) Pharyngitis: Status: Acute Reason for Visit Reason for Visit: syncope Brief History: Pleasant 81-year-old gentleman presented to ER due to episodes of falling down, with lightheadedness, unsteady gait, and loss of consciousness.? Denies any chest pain or pressure.? Denies prodromal symptoms, although does get lightheaded when standing up.? Last several days has been having sore throat.? Yesterday had an episode of diarrhea.? Denies any headache, no cough, no vomiting.? One of the syncopal episodes witnessed by EMS.? No seizure-like activity. Hospital Course Hospital Course COVID-19 returned positive. He had no further episodes of vomiting or diarrhea. He denies shortness of breath or cough, although did have low-grade temperature 99.8 ?F. On evaluation noted to have significant orthostatic hypotension, laying 130/58, down to 79/50 standing. Troponin with mild elevation, remains chest pain-free, EKG without specific suggestion of acute ischemia. Echocardiogram with ejection fraction 60-65%, grade 1 diastolic dysfunction. Grossly normal right ventricle. Trace TVR. Trace pericardial effusion. Carotid Doppler without carotid arterial stenosis. On presentation with noted VISH on CKD, creatinine up to 1.7. Amlodipine and cyclobenzaprine were held. Maintaining blood pressure at rest, and with noted improvement in orthostatic symptoms, has been able to ambulate independently in his room without orthostatic symptoms. Cautioned to exercise strict orthostatic precautions to prevent syncope/fall and injury. In addition to stopping amlodipine, cyclobenzaprine, he is started on midodrine. Oxygenation in low to mid 90s on room air, and is denying respiratory symptoms, however, with chronic kidney disease, age, has risk factors for severe COVID-19 illness, due to this discussed additional options with him with consideration of 3-day course of remdesivir, versus Paxlovid, although with risk of medication interactions. He chose the latter option, he understands risk of interaction, understands to hold tamsulosin during and 3 days after completing Paxlovid before resuming it. He is acute kidney injury on chronic kidney disease is showing improvement, creatinine up to 1.5. She has not had any difficulties urinating. Hyponatremia resolved. Please reassess renal function for continued improvement. Once he recovers from acute illness please refer additionally for assessment of possible urinary bladder lesion incidentally noted on kidney and bladder ultrasound. No hydronephrosis noted, also seen questionable enlarged prostate. Masses cannot be ruled out. Depending on additional findings consider referral to urology. Physical Exam Narrative: His is at bedside. Const: COMMON NORMALS: patient oriented x3 and alert GENERAL APPEARANCE: cooperative ORIENTATION/CONSCIOUSNESS: Yes awake HENMT: COMMON NORMALS: oropharynx normal Neck/C-Spine: COMMON NORMALS: no JVD Resp: COMMON NORMALS: normal respiratory effort and clear to auscultation bilaterally AUSCULTATION: clear to auscultation bilaterally Cardio: COMMON NORMALS: no JVD, regular rhythm, S1 normal heart sound present, S2 normal heart sound present and No murmurs present (Cardio) RHYTHM: regular rhythm HEART SOUNDS: S1 normal heart sound present and S2 normal heart sound present GI: COMMON NORMALS: Normal to inspection, nondistended, normoactive bowel sounds present, Soft to palpation and non-tender PALPATION: Yes Soft to palpation Extremity: COMMON NORMALS: no joint enlargement and no pedal edema Neuro: COMMON NORMALS: patient oriented x3 and moves all extremities SENSORIUM/ORIENTATION: Yes alert Skin: COMMON NORMALS: no rashes or lesions noted GENERAL SKIN EXAM: no rashes or lesions noted Discharge Data Studies Completed and Pending Completed Studies During Hospitalization Category Date Time Status CT head wo con* [id number] Stat Cat Scan 04/29/22 15:17 Completed XR chest 1V portable [id number] Stat Exams 04/29/22 15:17 Completed CV carotid duplex BI* [id number] Routine Ultrasound 04/29/22 19:42 Completed CV. echo complete* [id number] Stat Ultrasound 04/29/22 19:39 Completed US renal BI* [id number] Routine Ultrasound 04/29/22 20:10 Completed Pending at discharge Category Date Time Status Complete Blood Count w/Auto AM LABS Lab 05/01/22 04:00 Ordered Complete Blood Count w/Auto AM LABS Lab 05/02/22 04:00 Ordered Comprehensive Metabolic Panel AM LABS Lab 05/01/22 04:00 Ordered Comprehensive Metabolic Panel AM LABS Lab 05/02/22 04:00 Ordered Streptococcus Culture Group A Routine Lab 04/29/22 21:10 Received Tick Panel Routine Lab 04/29/22 21:15 Received Radiology Impressions Chest X-Ray 04/29/22 15:17 IMPRESSION: No acute findings.Non acute findings as described above. Head CT 04/29/22 15:17 IMPRESSION: There are senescent changes of the brain as described above. No evidence for large acute ischemic infarction or acute intracranial injury. Carotid Doppler Study 04/29/22 19:42 IMPRESSION: No carotid arterial stenosis. REFERENCES: SRU CRITERIA. The degree of internal carotid artery stenosis is based on criteria defined by the Society of Radiologists in Ultrasound (SRU). Normal is no stenosis. Mild is less than 50% stenosis. Moderate is 50-69% stenosis. Severe is greater than 69% stenosis to near occlusion. Near occlusion is a markedly narrowed lumen. Total occlusion is no detectable patent lumen. Renal Ultrasound 04/29/22 20:10 IMPRESSION: Bladder lesion. Questionable enlarged prostate. Cannot rule other masses. Consider CT scan. There is no hydronephrosis. Laboratory Results WBC 3.2 10^3/uL (4.0-10.0) L 04/30/22 05:58 RBC 3.68 10^6/uL (4.1-5.3) L 04/30/22 05:58 Hgb 12.2 g/dL (11.7-16.6) 04/30/22 05:58 Hct 35.0 % (42.0-52.0) L 04/30/22 05:58 MCV 95.1 fl (80-94) H 04/30/22 05:58 MCH 33.2 pg (28.0-34.0) 04/30/22 05:58 MCHC 34.9 g/dL (30.0-36.0) 04/30/22 05:58 RDW 11.9 % (12.1-15.1) L 04/30/22 05:58 Plt Count 83 10^3/cmm (130-400) L 04/30/22 05:58 MPV 11.5 fL (7.4-10.4) H 04/30/22 05:58 Neut % (Auto) 40.7 % 04/30/22 05:58 Lymph % (Auto) 37.7 % 04/30/22 05:58 [place] % (Auto) 20.1 % 04/30/22 05:58 Eos % (Auto) 0.3 % 04/30/22 05:58 Baso % (Auto) 0.0 % 04/30/22 05:58 Neut # (Auto) 1.32 10^3/uL (1.8-7.7) L 04/30/22 05:58 Lymph # (Auto) 1.2 10^3/uL (0.8-4.8) 04/30/22 05:58 [place] # (Auto) 0.7 10^3/uL (0.2-0.9) 04/30/22 05:58 Eos # (Auto) 0.0 10^3/uL (0.0-0.8) 04/30/22 05:58 Baso # (Auto) 0.0 10^3/uL (0.0-0.1) 04/30/22 05:58 Nucleated RBC % (auto) 0 % 04/30/22 05:58 Nucleated RBCs # 0.0 /100WBC 04/30/22 05:58 Sodium 137 mmol/L (136-145) 04/30/22 05:58 Potassium 4.7 mmol/L (3.5-5.1) 04/30/22 05:58 Chloride 103 mmol/L (98-107) 04/30/22 05:58 Carbon Dioxide 23 mmol/L (22-29) 04/30/22 05:58 Anion Gap 15.7 (5-19) 04/30/22 05:58 BUN 28 mg/dL (8-23) H 04/30/22 05:58 Creatinine 1.5 mg/dL (0.7-1.2) H 04/30/22 05:58 GFR Calculation Not Reportable 04/30/22 05:58 Glucose 125 mg/dL (65-115) H 04/30/22 05:58 POC Glucose 179 mg/dL (70-110) H 04/30/22 11:19 Calculated Osmolality 291 mOsm/kg (285-295) 04/30/22 05:58 Calcium 8.6 mg/dL (8.5-10.5) 04/30/22 05:58 Total Bilirubin 0.3 mg/dL (0.15-1.2) 04/30/22 05:58 AST 35 U/L (0-40) 04/30/22 05:58 ALT 41 U/L (0-41) 04/30/22 05:58 Alkaline Phosphatase 61 U/L (40-130) 04/30/22 05:58 Creatine Kinase 84 U/L (39-308) 04/29/22 18:48 Troponin T Baseline 38 ng/L (0-15) H 04/29/22 16:37 Troponin T 120 Minute 31.38 ng/L (0-15) H 04/29/22 18:48 Delta Troponin T -6.62 ABS# (0-10) L 04/29/22 18:48 Total Protein 6.2 g/dL (6.6-8.7) L 04/30/22 05:58 Albumin 3.6 g/dL (3.5-5.2) 04/30/22 05:58 Globulin 2.6 g/dL (1.3-4.6) 04/30/22 05:58 Lipase 102 U/L (13-60) H 04/30/22 05:58 TSH 1.34 uIU/mL (0.27-4.20) 04/29/22 18:48 Random Cortisol 18.49 ug/dL (2.47-19.5) 04/30/22 05:58 Coronavirus 229E (PCR) Not detected (NOT DETECT) 04/29/22 22:50 Monoscreen Negative (Negative) 04/29/22 18:48 SARS-CoV-2 (PCR) Detected (NOT DETECT) A 04/29/22 22:50 Group A Strep Rapid Negative (Negative) 04/29/22 21:10 Vitals Last Vital Signs Temp 99.5 F 04/30/22 15:58 Pulse 68 04/30/22 15:58 Resp 16 04/30/22 15:58 BP 114/61 04/30/22 15:58 Pulse Ox 91 04/30/22 15:58 O2 Del Method 04/30/22 15:58 Discharge Plan Discharge Patient Disposition: Home Condition: Stable Prescriptions: New midodrine 5 mg tablet 5 mg PO TID Qty: 90 0RF Rx Instructions: do not give last dose of day after 6PM or within 4 hrs of bedtime Paxlovid (EUA) 150-100 mg tablets,dose pack See Rx Instructions .ROUTE .COMPLEX Qty: 1 0RF Rx Instructions: take ONE 150 mg tablet of nirmatrelvir with ONE 100 mg tablet of ritonavir twice daily for 5 days Continued (DME) pen needle, diabetic 32 gauge x /32 needle See Rx Instructions .ROUTE .MEDSUPPLY Qty: 200 5RF Rx Instructions: 5 daily calcium carbonate-vitamin D3 500 mg-15 mcg (600 unit) tablet 1 tab PO BID Qty: 60 2RF sertraline 50 mg tablet 50 mg PO DAILY Qty: 30 2RF (DME) cpap See Rx Instructions .Route .MEDSUPPLY Qty: 1 0RF Rx Instructions: As directed 99 months, npi [id number] use cpap nightly and needs all supplys (DME) diabetic shoes with inserts See Rx Instructions .Route .MEDSUPPLY Qty: 1 0RF Rx Instructions: As directed Tresiba FlexTouch U-200 200 unit/mL (3 mL) insulin pen 50 unit SUBCUT BID Qty: 9 0RF buspirone 15 mg tablet 15 mg PO DAILY PRN (Reason: Anxiety) Qty: 30 2RF atorvastatin 10 mg tablet 10 mg PO BEDTIME Qty: 30 2RF albuterol sulfate [Ventolin HFA] 90 mcg/actuation HFA aerosol inhaler 2 puff inhalation Q6H PRN (Reason: shortness of breath or wheezing) Qty: 8.5 0RF Ozempic 1 mg/dose (4 mg/3 mL) pen injector 1 mg SUBCUT Q7D Rx Instructions: On Mondays Held tamsulosin 0.4 mg capsule 0.4 mg PO DAILY Qty: 30 2RF Hold Instructions: Resume on 05/09/22. Discontinued cyclobenzaprine 10 mg tablet 10 mg PO BEDTIME Qty: 30 1RF amlodipine [Norvasc] 5 mg tablet 5 mg PO DAILY Qty: 30 2RF Discharge Orders: Discharge Order (Routine); Ordered 04/30/22 Ordered By: Lawrence Aguero Referrals: Jameson Beal, [employer] [Primary Care Provider] - 1 week (Please call the [facility] Sunday morning to schedule a hospital follow up appointment within 1 week with Trent Beal.) Discharge Diet: Diabetic Discharge Activity: Limit activity as instructed Patient Instructions: Midodrine (By mouth), Nirmatrelvir/Ritonavir (By mouth) (Paxlovid), Acute Kidney Injury (GEN), Hyponatremia (GEN), Hypotension (GEN), COVID-19 (Coronavirus Disease 2019) (GEN) Activity Restrictions/Additional Instructions: Please hold tamsulosin while taking Paxil with and for 3 days after. In case of worsening condition with COVID-19 pneumonia, in case of worsening shortness of breath, any chest pain or pressure, inability to tolerate oral medications or other concerning symptoms seek medical attention. Follow-up with your primary doctor to assess recovery. Please maintain strict orthostatic precautions as discussed. Your blood pressure decreases significantly when you sit up or stand up at which point you end up with low blood pressure. This may lead to you getting lightheaded or even fainting. In case you get lightheaded while sitting up or standing up, or lie down immediately to prevent fainting, fall and injury. Please discontinue amlodipine and cyclobenzaprine to avoid worsening symptoms. You are started also on midodrine as discussed. Please discuss with your primary doctor incidentally seen possible lesion in your urinary bladder which will need to be followed up, possibly with CAT scan once you recover from COVID, possibly with urology in case lesion is confirmed. Follow-up with your primary doctor regarding enlarged prostate. Seek medical attention in case you experience inability to urinate. Follow-up with your primary doctor for resolution of low white blood cell counts. Decreased sodium level. Sore throat. Please have your primary doctor recheck your renal function due to acute on chronic renal failure. Discharge Attestations Time Spent in Discharge Care*: greater than 30 min Status at Discharge: Cognitive status at discharge: cognitively intact , Behavioral status at discharge: cooperative , Quality Metrics Clinical Quality Measures [ No reported AMI, CVA or VTE this stay] Coding Level of Care Code Acute Chg FW DC note Diagnoses Syncope and collapse R55 Acute kidney injury superimposed on CKD N17.9; N18.9 Leukopenia D72.819 Pharyngitis J02.9
[2022-05-02 14:34] LABS: Lyme AB Screen <0.90 index
[2022-05-04 16:03] LABS: RMSF IGG NOT DETECTED; RMSF IGM NOT DETECTED
[2022-05-04 21:48] LABS: E. Chaffeensis AB IGG <1:64; E. Chaffeensis AB IGM <1:20
== END 2022-04-30 16:40 | disposition home or self-care (01) ==
LOC: ER 16:28 → MEDSURG 23:49
PROVIDERS: Admitting Provider Internal Medicine; Emergency Provider Emergency Medicine; PCP Nurse Practitioner; Visit Provider Internal Medicine
DX: R55 Syncope and collapse (principal); N17.9 Acute kidney failure, unspecified; E11.22 Type 2 diabetes mellitus with diabetic chronic kidney disease; I12.9 Hypertensive chronic kidney disease with stage 1 through stage 4 chronic kidney disease, or unspecified chronic kidney disease; N18.30 Chronic kidney disease, stage 3 unspecified; D72.819 Decreased white blood cell count, unspecified; J02.9 Acute pharyngitis, unspecified; F41.9 Anxiety disorder, unspecified; Z79.4 Long term (current) use of insulin; J43.8 Other emphysema; G47.33 Obstructive sleep apnea (adult) (pediatric); E55.9 Vitamin D deficiency, unspecified; E78.5 Hyperlipidemia, unspecified; Z87.891 Personal history of nicotine dependence
CPT/HCPCS: 36415; 36416; 70450; 71045; 76770; 80053; 82533; 82550; 82962; 83690; 84443; 84484; 85025; 86308; 86618; 86666; 86757; 87081; 87635; 87880; 93005; 93306; 93880; 96360; 96361; 96372; 99285; G0378; J1815; J7040

== ENCOUNTER → 2022-05-16 14:01 | Outpatient (BNVA) | payer MEDICARE, SELFPAY | PROVIDERS: PCP Nurse Practitioner; Visit Provider Nurse Practitioner | DX: E11.22 Type 2 diabetes mellitus with diabetic chronic kidney disease (principal); N18.30 Chronic kidney disease, stage 3 unspecified; Z79.4 Long term (current) use of insulin | CPT/HCPCS: 80048 ==

== ENCOUNTER → 2022-06-06 11:16 | Outpatient (BNVA) | payer MEDICARE, SELFPAY | PROVIDERS: PCP Nurse Practitioner; Visit Provider Nurse Practitioner | DX: N52.9 Male erectile dysfunction, unspecified (principal); E11.8 Type 2 diabetes mellitus with unspecified complications; Z79.4 Long term (current) use of insulin; E55.9 Vitamin D deficiency, unspecified; J43.9 Emphysema, unspecified | CPT/HCPCS: 80053; 80061; 82306; 83036; 85025 ==

== ENCOUNTER → 2022-07-21 09:28 | Outpatient (BNVA) | payer MEDICARE, SELFPAY | PROVIDERS: PCP Nurse Practitioner; Visit Provider Nurse Practitioner Family | DX: S99.921A Unspecified injury of right foot, initial encounter (principal); W06.XXXA Fall from bed, initial encounter; L08.9 Local infection of the skin and subcutaneous tissue, unspecified | CPT/HCPCS: 73630 ==

== ENCOUNTER → 2022-08-28 10:37 | Outpatient (BNVA) | payer MEDICARE, SELFPAY | PROVIDERS: PCP Nurse Practitioner; Visit Provider Nurse Practitioner | DX: E55.9 Vitamin D deficiency, unspecified (principal); J43.9 Emphysema, unspecified; E11.8 Type 2 diabetes mellitus with unspecified complications; Z79.4 Long term (current) use of insulin; D72.819 Decreased white blood cell count, unspecified | CPT/HCPCS: 80053; 80061; 82306; 83036; 85025 ==

== ENCOUNTER 2022-09-21 09:09 | Outpatient (CLI) | payer MEDICARE, SELFPAY ==
[2022-09-21] MEDS: iohexol 350 mg/mL 500 mL Btl (per mL) IV (09:27)
--- NOTE | 2022-09-21 11:00 | CT_ITS ---
WS: [id number] CT ABDOMEN PELVIS TECHNIQUE: Noncontrast CT of the abdomen and pelvis with coronal and sagittal reformatted images. CLINICAL INFORMATION: N40.0 - Benign prostatic hyperplasia without lower urinar... COMPARISON: None. DLP: 1026.[address] scans at [facility] use at least one of these dose optimization techniques: automated e xposure control; mA and/or kV adjustment per patient size (includes targeted exams where dose is matc hed to clinical indication); or iterative reconstruction. FINDINGS: Interstitial thickening in the lung bases. Bibasilar atelectasis. Noncontrast liver is normal. Cholel ithiasis. Gallbladder is contracted. No gallbladder wall thickening or pericholecystic fluid. Noncont rast gallbladder is otherwise normal. Normal GE junction. Noncontrast pancreas appears normal. Normal noncontrast spleen. Normal caliber abdominal aorta. Mild aortic calcification. Adrenal glands are no rmal. 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 Bilateral renal cortical atrophy. No hydronephrosis. Ureters are decompressed. Exophytic LEFT cortical renal lesion measuring 1.7 cm with increased attenuation. T his is indeterminate. Recommend further evaluation with ultrasound. Normal caliber abdominal aorta. A ortic calcification. Prominent prostate measuring 4.5 x 3.7 CM. Urine distended bladder with bladder diverticulum dorsally measuring 1.9 cm. Adjacent tiny bladder diverticulum. Prostate impinges on the bladder. Normal sigmoid colon. No evidence of high-grade small or large bowel obstruction. Tiny fat-containing umbilical hernia. No abdominal or pelvic lymphadenopathy. No inguinal lymphadenopathy. Moderate spon dylitic changes lumbar spine. CT/CT abdomen pelvis wo con [id number] IMPRESSION: 1. Cholelithiasis. Gallbladder is contracted. No gallbladder wall thickening o r pericholecystic fluid. This can be further evaluated with ultrasound. 2. Enlarged prostate. Recommend correlation PSA. 3. Urine distended bladder with small bladder diverticuli the largest measurin g 1.9 cm dorsally. Bladder trabeculation. 4. 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 5. Normal caliber abdominal aorta. 6. Indeterminate exophytic LEFT renal lesion measuring 1.7 cm. Recommend furth er evaluation with ultrasound.
== END 2022-09-21 09:10 | disposition home or self-care (01) ==
LOC: RAD 09:14
PROVIDERS: PCP Nurse Practitioner; Visit Provider Nurse Practitioner
DX: N40.0 Benign prostatic hyperplasia without lower urinary tract symptoms (principal); K80.80 Other cholelithiasis without obstruction; N28.9 Disorder of kidney and ureter, unspecified
CPT/HCPCS: 74176; Q9967

== ENCOUNTER 2022-10-11 11:45 | Emergency (ER) | payer OTHER, SELFPAY ==
[2022-10-11 11:48] VITALS: BP 133/72; PULSE 57; RESP 17; TEMP 36.8; O2SAT 96; BMI 33.2
--- NOTE | 2022-10-11 13:15 | ED_ITS ---
HPI - Male Genitourinary General: Chief complaint: Urogenital-Male Stated complaint: Cathater issues Time Seen by Provider: 10/11/22 12:55 Source: patient Mode of arrival: ambulatory History of Present Illness: 82-year-old male presents [place] to the emergency room from the CT clinic. He was seen there and had urinary retention confirmed by ultrasound presents here recently mailed urinate a little bit at a time never feels like he empties his bladder but does not particularly have a lot of pain. Shortly after he arrived a Yeung was placed using a coud? catheter within 2 minutes he had nearly 700 out and we clamped the tube. Denies any dysuria urgency or frequency denies any flank pain or hematuria. Onset (ago): week(s) Duration: constant Relieving factors: none Exacerbating factors: none Associated symptoms: Deny discharge, dysuria, fevers/chills, hematuria, nausea, rash, swelling, urinary incontinence, urinary retention, mass or vomiting Review of Systems Const: Denies: fever(s), chills, body aches, change in appetite, fatigue or malaise ENMT: Denies: throat pain, ear or mastoid pain, nasal discharge or nasal congestion Card: Denies: chest pain, edema, dyspnea on exertion or orthopnea Resp: Denies: dyspnea, productive cough or non-productive cough GI: Denies: abdominal pain, nausea or vomiting : Reports: difficulty urinating and oliguria; Denies: flank pain, dysuria, urinary frequency, urinary urgency, urinary incontinence or hematuria Skin/Breast: Denies: rash or pruritus PFS ED PFSH: Medical History Anxiety Chronic kidney disease (CKD), stage III (moderate) 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, 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 Encounter for screening colonoscopy Essential (primary) hypertension 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 Obstructive sleep apnea syndrome Vitamin D insufficiency Surgical History H/O esophagogastroduodenoscopy 09/02/2019: Mild gastritis History of cataract surgery Both eyes History of colonoscopy with polypectomy (~2009) 09/02/2019: 3 mm sessile polyp x2 descending colon Family History Mother Family history non-contributory Father Obesity Denies family history of Anesthesia complication Bleeding disorder Social History Smoking and tobacco status: former smoker Quit status (tobacco): has quit using tobacco Former quit date comment: 3 months ago Second hand smoke exposure: No Alcohol intake: current Alcohol intake frequency: holidays/special occasions only Alcohol type: beer Desire information about alcohol rehabilitation?: No Counseling given: No Desire information about substance/drug rehabilitation?: No Counseling given: No Adopted: No Caregiver/support person: Yes Lives independently: Yes Household members: spouse Housing: House Marital status: Highest education level completed: High School Graduate service: Yes status: Retired branch: [employer] Current occupational status: retired Current occupational exposures/hazards: No Pets and animals: No Sexually active: No Current gender identity: Male Arin/Yazdanism: Zoroastrian Special arin needs: No Agree to transfusion: No Financial difficulty paying for basics: Decline to Answer Physical Exam Const: GENERAL APPEARANCE: cooperative and comfortable OR IENTATION/CONSCIOUSNESS: Yes awake, Yes oriented to person, Yes oriented to place and Yes oriented to time HENMT: COMMON NORMALS: normocephalic, atraumatic and hearing grossly normal bilaterally HEAD & SCALP: normocephalic and atraumatic Resp: COMMON NORMALS: normal respiratory effort, No retractions, No use of accessory muscles and clear to auscultation bilaterally AUSCULTATION: clear to auscultation bilaterally Cardio: COMMON NORMALS: regular rate, regular rhythm and No murmurs present (Cardio) RATE: regular rate RHYTHM: regular rhythm GI: COMMON NORMALS: Soft to palpation and No hepatosplenomegaly present AUSCULTATION: Yes normoactive bowel sounds PALPATION: Yes Soft to palpation, No Tenderness to palpation present (GI), No Guarding due to palpation present (GI) and Yes No hepatosplenomegaly present Extremity: COMMON NORMALS: normal to inspection, capillary refill normal, no clubbing, cyanosis or edema, no calf tenderness and no pedal edema Neuro: SENSORIUM/ORIENTATION: Yes oriented to person, Yes oriented to place and Yes oriented to time Skin: COMMON NORMALS: no rashes or lesions noted GENERAL SKIN EXAM: no rashes or lesions noted Course Vital Signs: Vital signs: Vital Signs Temperature 98.3 F 10/11/22 11:48 Pulse Rate 53 L 10/11/22 15:01 Respiratory Rate 16 10/11/22 15:01 Blood Pressure 133/94 10/11/22 15:01 Pulse Oximetry 94 10/11/22 15:01 Oxygen Delivery Me thod 10/11/22 11:48 MDM - Male Medical Decision Making Labs reviewed. No acute infection in the urine. His creatinine is at his baseline. His potassium is somewhat elevated. Have already increased his tamsulosin to [address] doctors make an appointment with a urologist. Catheter placed patient had nearly 700 out. He is feeling somewhat better. Will discharge home with a leg bag and follow-up with urology per the CT clinic Medical Records I reviewed the patient's medical records. Lab Data I reviewed the patient's lab results. 10/11/22 13:40 10/11/22 13:40 Laboratory Results WBC 6.2 10^3/uL (4.0-10.0) 10/11/22 13:40 RBC 3.72 10^6/uL (4.1-5.3) L 10/11/22 13:40 Hgb 11.8 g/dL (11.7-16.6) 10/11/22 13:40 Hct 34.4 % (42.0-52.0) L 10/11/22 13:40 MCV 92.5 fl (80-94) 10/11/22 13:40 MCH 31.7 pg (28.0-34.0) 10/11/22 13:40 MCHC 34.3 g/dL (30.0-36.0) 10/11/22 13:40 RDW 12.1 % (12.1-15.1) 10/11/22 13:40 Plt Count 151 10^3/cmm (130-400) 10/11/22 13:40 MPV 11.0 fL (7.4-10.4) H 10/11/22 13:40 Neut % (Auto) 59.3 % 10/11/22 13:40 Lymph % (Auto) 29.4 % 10/11/22 13:40 [place] % (Auto) 6.8 % 10/11/22 13:40 Eos % (Auto) 2.6 % 10/11/22 13:40 Baso % (Auto) 0.3 % 10/11/22 13:40 Neut # (Auto) 3.66 10^3/uL (1.8-7.7) 10/11/22 13:40 Lymph # (Auto) 1.8 10^3/uL (0.8-4.8) 10/11/22 13:40 [place] # (Auto) 0.4 10^3/uL (0.2-0.9) 10/11/22 13:40 Eos # (Auto) 0.2 10^3/uL (0.0-0.8) 10/11/22 13:40 Baso # (Auto) 0.0 10^3/uL (0.0-0.1) 10/11/22 13:40 Nucleated RBC % (auto) 0 % 10/11/22 13:40 Nucleated RBCs # 0.0 /100WBC 10/11/22 13:40 Sodium 137 mmol/L (136-145) 10/11/22 13:40 Potassium 5.2 mmol/L (3.5-5.1) H 10/11/22 13:40 Chloride 103 mmol/L (98-107) 10/11/22 13:40 Carbon Dioxide 26 mmol/L (22-29) 10/11/22 13:40 Anion Gap 13.2 (5-19) 10/11/22 13:40 BUN 21 mg/dL (8-23) 10/11/22 13:40 Creatinine 1.4 mg/dL (0.7-1.2) H 10/11/22 13:40 GFR Calculation Not Reportable 10/11/22 13:40 Glucose 268 mg/dL (65-115) H 10/11/22 13:40 Calculated Osmolality 296 mOsm/kg (285-295) H 10/11/22 13:40 Calcium 9.2 mg/dL (8.5-10.5) 10/11/22 13:40 Urine Color Yellow (Yellow) 10/11/22 13:25 Urine Appearance Clear (CLEAR) 10/11/22 13:25 Urine pH 5 (5-7) 10/11/22 13:25 Ur Specific [place] 1.020 (1.005-1.030) 10/11/22 13:25 Urine Protein Neg (Negative) 10/11/22 13:25 Urine Glucose (UA) 4+ (Normal) H 10/11/22 13:25 Urine Ketones Negative (Negative) 10/11/22 13:25 Urine Blood Trace (Negative) H 10/11/22 13:25 Urine Nitrate Negative (Negative) 10/11/22 13:25 Urine Bilirubin Neg (Negative) 10/11/22 13:25 Urine Urobilinogen Norm mg/dL (Negative) 10/11/22 13:25 Ur Leukocyte Esterase Negative (Negative) 10/11/22 13:25 Urine RBC 0-4 /hpf (0-2) H 10/11/22 13:25 Urine WBC 0-4 /hpf (0-5) H 10/11/22 13:25 Ur Squamous Epith Cells 0-4 /hpf (0-5) H 10/11/22 13:25 Amorphous Sediment Not Reportable 10/11/22 13:25 Urine Bacteria Trace /hpf (NONE) 10/11/22 13:25 Urine Mucus Trace /hpf 10/11/22 13:25 Discharge Plan Discharge Patient Disposition: Home Clinical Impression: Acute retention of urine Condition: Stable Prescriptions: No Action (DME) pen needle, diabetic 32 gauge x 5/32 needle See Rx Instructions .ROUTE .MEDSUPPLY Qty: 200 5RF Rx Instructions: 5 daily calcium carbonate-vitamin D3 500 mg-15 mcg (600 unit) tablet 1 tab PO BID Qty: 60 2RF (DME) cpap See Rx Instructions .Route .MEDSUPPLY Qty: 1 0RF Rx Instructions: As directed 99 months, npi [id number] use cpap nightly and needs all supplys (DME) diabetic shoes with inserts See Rx Instructions .Route .MEDSUPPLY Qty: 1 0RF Rx Instructions: As directed albuterol sulfate [Ventolin HFA] 90 mcg/actuation HFA aerosol inhaler 2 puff inhalation Q6H PRN (Reason: shortness of breath or wheezing) Qty: 8.5 0RF Victoza 3-Karan 0.6 mg/0.1 mL (18 mg/3 mL) pen injector 1.2 mg SUBCUT DAILY Label Comments: [facility] provider writing tamsulosin 0.4 mg capsule 0.4 mg PO DAILY Hold Instructions: Resume on 05/09/22. Label Comments: [facility] writing sertraline 50 mg tablet 50 mg PO DAILY Label Comments: [facility] writing provider insulin lispro [Humalog KwikPen Insulin] 100 unit/mL insulin pen 3 - 22 unit SUBCUT TID Label Comments: [facility] provider writing Tresiba FlexTouch U-200 200 unit/mL (3 mL) insulin pen 55 unit SUBCUT BID Label Comments: [facility] provider writing buspirone 15 mg tablet 15 mg PO DAILY PRN (Reason: Anxiety) Label Comments: [facility] writing provider atorvastatin 10 mg tablet 10 mg PO BEDTIME Label Comments: [facility] provider writing Discharge Orders: Discharge ED (Routine); Ordered 10/11/22 Ordered By: Nikos Smith Referrals: Jameson Beal, NURSE INFORMATICIST-C [Primary Care Provider] - Discharge Diet: Usual diet Discharge Activity: Increase activity as tolerated Patient Instructions: Opioid Safety, Pain Management Activity Restrictions/Additional Instructions: You are seen today for urinary retention. Your urinalysis was normal your labor atory tests are otherwise unremarkable. Recommend that you follow-up with urology through your primary care provider. Coding Level of Care Code ED Production Engineer for Juan Jose Alcala
[2022-10-11 14:01] LABS: Basophils % 0.3 %; Eosinophils # 0.2 10^3/uL (0.0-0.8); Eosinophils % 2.6 %; Hematocrit 34.4 % (42.0-52.0); Hemoglobin 11.8 g/dL (11.7-16.6); Lymphocytes # 1.8 10^3/uL (0.8-4.8); Lymphocytes % 29.4 %; Mean Corpuscular HGB Conc 34.3 g/dL (30.0-36.0); Mean Corpuscular Hemoglobin 31.7 pg (28.0-34.0); Mean Corpuscular Volume 92.5 fl (80-94); Monocytes # 0.4 10^3/uL (0.2-0.9); Monocytes % 6.8 %; Neutrophils # 3.66 10^3/uL (1.8-7.7); Neutrophils % 59.3 %; Nucleated Red Blood Cells % 0 %; Platelet Count 151 10^3/cmm (130-400); Red Blood Count 3.72 10^6/uL (4.1-5.3); Red Cell Distribution Width 12.1 % (12.1-15.1); White Blood Count 6.2 10^3/uL (4.0-10.0)
[2022-10-11 14:05] LABS: Add Urine Microscopic? YES; Bilirubin Urine Neg (Negative); Blood Urine Trace (Negative); Glucose Urine UA 4+ (Normal); Ketones Urine Negative (Negative); Leukocyte Esterase Urine Negative (Negative); Nitrate Urine Negative (Negative); Protein Urine Neg (Negative); Urine Appearance Clear (CLEAR); Urine Color Yellow (Yellow); Urobilinogen Urine Norm (Negative); pH Urine 5 (5-7)
[2022-10-11 14:07] LABS: Bacteria Urine TRACE /hpf; Mucus Urine TRACE /hpf; RBC Urine 0-4 /hpf (0-2); Squamous Epithelial Cell Urine 0-4 /hpf (0-5); WBC Urine 0-4 /hpf (0-5)
[2022-10-11 14:25] LABS: Anion Gap 13.2 (5-19); Blood Urea Nitrogen 21 mg/dL (8-23); Calcium 9.2 mg/dL (8.5-10.5); Carbon Dioxide 26 mmol/L (22-29); Chloride 103 mmol/L (98-107); Glucose 268 mg/dL (65-115); Osmolality Calculated 296 mOsm/kg (285-295); Potassium 5.2 mmol/L (3.5-5.1); Sodium 137 mmol/L (136-145)
[2022-10-11 15:01] VITALS: BP 133/94; PULSE 53; RESP 16; O2SAT 94
== END 2022-10-11 15:02 | disposition home or self-care (01) ==
PROVIDERS: Emergency Provider Family Medicine; PCP Nurse Practitioner
DX: R33.9 Retention of urine, unspecified (principal); Z79.4 Long term (current) use of insulin; Z87.891 Personal history of nicotine dependence; I12.9 Hypertensive chronic kidney disease with stage 1 through stage 4 chronic kidney disease, or unspecified chronic kidney disease; E11.22 Type 2 diabetes mellitus with diabetic chronic kidney disease; N18.30 Chronic kidney disease, stage 3 unspecified; J44.9 Chronic obstructive pulmonary disease, unspecified
CPT/HCPCS: 36415; 51702; 80048; 81001; 85025; 99283

== ENCOUNTER 2022-10-16 14:06 | Emergency (ER) | payer OTHER, SELFPAY ==
[2022-10-16] VITALS (16 sets, daily range): BP systolic 116–120; BP diastolic 54–67; PULSE 52–62; RESP 17–18; O2SAT 96–98; BMI 33.2
[2022-10-16 14:51] LABS: Glucose Point of Care 350 mg/dL (70-110)
[2022-10-16 15:59] LABS: Basophils % 0.2 %; Eosinophils # 0.2 10^3/uL (0.0-0.8); Eosinophils % 1.6 %; Hematocrit 34.7 % (42.0-52.0); Hemoglobin 11.6 g/dL (11.7-16.6); Lymphocytes # 2.4 10^3/uL (0.8-4.8); Lymphocytes % 23.8 %; Mean Corpuscular HGB Conc 33.4 g/dL (30.0-36.0); Mean Corpuscular Hemoglobin 31.2 pg (28.0-34.0); Mean Corpuscular Volume 93.3 fl (80-94); Mean Platelet Volume 10.9 fL (7.4-10.4); Monocytes # 0.7 10^3/uL (0.2-0.9); Monocytes % 6.8 %; Neutrophils # 6.45 10^3/uL (1.8-7.7); Neutrophils % 65.2 %; Nucleated Red Blood Cells % 0 %; Platelet Count 161 10^3/cmm (130-400); Red Blood Count 3.72 10^6/uL (4.1-5.3); Red Cell Distribution Width 11.9 % (12.1-15.1); White Blood Count 9.9 10^3/uL (4.0-10.0)
[2022-10-16 16:18] LABS: Alanine Aminotransferase 22 U/L (0-41); Albumin Level 3.7 g/dL (3.5-5.2); Alkaline Phosphatase 90 U/L (40-130); Anion Gap 14.9 (5-19); Aspartate Amino Transferase 19 U/L (0-40); Blood Urea Nitrogen 28 mg/dL (8-23); Calcium 9.4 mg/dL (8.5-10.5); Carbon Dioxide 25 mmol/L (22-29); Chloride 96 mmol/L (98-107); Globulin 2.9 g/dL (1.3-4.6); Glucose 337 mg/dL (65-115); Osmolality Calculated 291 mOsm/kg (285-295); Potassium 4.9 mmol/L (3.5-5.1); Sodium 131 mmol/L (136-145); Total Bilirubin 0.4 mg/dL (0.15-1.2); Total Protein 6.6 g/dL (6.6-8.7)
[2022-10-16 16:20] LABS: Ketone (Acetest) Serum Negative (Negative)
[2022-10-16 16:27] LABS: Slide Review Slide Review Perform
--- NOTE | 2022-10-16 17:35 | W.ED.GENADLT ---
HPI - General Adult General: Chief complaint: General Medical Stated complaint: Catheter and his bladder is not working Time Seen by Provider: 10/16/22 17:32 History of Present Illness: 82-year-old male patient comes in today with complaints of tenderness to the glans of the penis. Patient had to have a catheter placed about 4 days ago and since then his penis has been tender at the tip. Patient also has been concerned about his blood sugar being elevated. Patient takes his medication he takes 45 units of Tresiba twice a day and uses a sliding scale otherwise. Patient appears nontoxic. Patient appears in mild discomfort. Patient has a history of CKD, obstructive sleep apnea, COPD, type 2 diabetes, and anxiety. 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 Encounter for screening colonoscopy Essential (primary) hypertension 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 Obstructive sleep apnea syndrome Vitamin D insufficiency Surgical History H/O esophagogastroduodenoscopy 09/02/2019: Mild gastritis History of cataract surgery Both eyes History of colonoscopy with polypectomy (~2009) 09/02/2019: 3 mm sessile polyp x2 descending colon Family History Mother Family history non-contributory Father Obesity Denies family history of Anesthesia complication Bleeding disorder Social History Smoking and tobacco status: former smoker Quit status (tobacco): has quit using tobacco Former quit date comment: 3 months ago Second hand smoke exposure: No Alcohol intake: current Alcohol intake frequency: holidays/special occasions only Alcohol type: beer Desire information about alcohol rehabilitation?: No Counseling given: No Desire information about substance/drug rehabilitation?: No Counseling given: No Adopted: No Caregiver/support person: Yes Lives independently: Yes Household members: spouse Housing: House Marital status: Highest education level completed: High School Graduate service: Yes status: Retired branch: [employer] Current occupational status: retired Current occupational exposures/hazards: No Pets and animals: No Sexually active: No Current gender identity: Male Arin/Caodaism: Cheondoism Special arin needs: No Agree to transfusion: No Financial difficulty paying for basics: Decline to Answer Physical Exam Const: COMMON NORMALS: alert HENMT: COMMON NORMALS: normocephalic HEAD & SCALP: normocephalic Neck/C-Spine: COMMON NORMALS: full ROM Resp: COMMON NORMALS: normal respiratory effort and clear to auscultation bilaterally AUSCULTATION: clear to auscultation bilaterally Cardio: COMMON NORMALS: regular rate and regular rhythm RATE: regular rate RHYTHM: regular rhythm GI: PALPATION: No Tenderness to palpation present (GI) : PENIS: uncircumcised and other (Tenderness of the penile tip with purulent drainage) Extremity: COMMON NORMALS: full ROM Neuro: SENSORIUM/ORIENTATION: Yes alert Skin: NARRATIVE SKIN EXAM: Redness to the penile tip Course Vital Signs: Vital signs: Vital Signs Pulse Rate 52 L 10/16/22 18:06 Respiratory Rate 17 10/16/22 18:06 Blood Pressure 116/63 10/16/22 18:06 Pulse Oximetry 98 10/16/22 18:06 Oxygen Delivery Me thod 10/16/22 18:06 MDM - General Adult Medical Decision Making 82-year-old male patient comes in today due to tenderness of the penile tip. On exam patient has some erythema and tenderness to the glans of the penis. There is also some purulent drainage. Vital signs are normal. Differential diagnosis includes but not limited to intertrigo, balanitis, cellulitis. No signs of severe illness is noted at this time. Patient be started on oral antibiotic doxycycline 100 mg twice a day for treatment of the skin infection, and will also be given some Diflucan and nystatin for concerns of yeast. Patient should follow-up with primary care in 2 to 3 days for recheck. Laboratory values indicated no sign of acidosis even though the blood sugar was elevated. Urinalysis had white blood cells and some nitrates in it. Culture will be performed. Lab Data 04/03/23 15:35 10/16/22 15:35 Laboratory Results WBC 9.9 10^3/uL (4.0-10.0) 10/16/22 15:35 RBC 3.72 10^6/uL (4.1-5.3) L 10/16/22 15:35 Hgb 11.6 g/dL (11.7-16.6) L 10/16/22 15:35 Hct 34.7 % (42.0-52.0) L 10/16/22 15:35 MCV 93.3 fl (80-94) 10/16/22 15:35 MCH 31.2 pg (28.0-34.0) 10/16/22 15:35 MCHC 33.4 g/dL (30.0-36.0) 10/16/22 15:35 RDW 11.9 % (12.1-15.1) L 10/16/22 15:35 Plt Count 161 10^3/cmm (130-400) 10/16/22 15:35 MPV 10.9 fL (7.4-10.4) H 10/16/22 15:35 Neut % (Auto) 65.2 % 10/16/22 15:35 Lymph % (Auto) 23.8 % 10/16/22 15:35 [place] % (Auto) 6.8 % 10/16/22 15:35 Eos % (Auto) 1.6 % 10/16/22 15:35 Baso % (Auto) 0.2 % 10/16/22 15:35 Neut # (Auto) 6.45 10^3/uL (1.8-7.7) 10/16/22 15:35 Lymph # (Auto) 2.4 10^3/uL (0.8-4.8) 10/16/22 15:35 [place] # (Auto) 0.7 10^3/uL (0.2-0.9) 10/16/22 15:35 Eos # (Auto) 0.2 10^3/uL (0.0-0.8) 10/16/22 15:35 Baso # (Auto) 0.0 10^3/uL (0.0-0.1) 10/16/22 15:35 Nucleated RBC % (auto) 0 % 04/03/23 15:35 Nucleated RBCs # 0.0 /100WBC 10/16/22 15:35 Sodium 131 mmol/L (136-145) L 10/16/22 15:35 Potassium 4.9 mmol/L (3.5-5.1) 10/16/22 15:35 Chloride 96 mmol/L (98-107) L 10/16/22 15:35 Carbon Dioxide 25 mmol/L (22-29) 10/16/22 15:35 Anion Gap 14.9 (5-19) 10/16/22 15:35 BUN 28 mg/dL (8-23) H 10/16/22 15:35 Creatinine 1.5 mg/dL (0.7-1.2) H 10/16/22 15:35 GFR Calculation Not Reportable 10/16/22 15:35 Glucose 337 mg/dL (65-115) H 10/16/22 15:35 POC Glucose 350 mg/dL (70-110) H 10/16/22 14:47 Calculated Osmolality 291 mOsm/kg (285-295) 10/16/22 15:35 Calcium 9.4 mg/dL (8.5-10.5) 10/16/22 15:35 Total Bilirubin 0.4 mg/dL (0.15-1.2) 10/16/22 15:35 AST 19 U/L (0-40) 10/16/22 15:35 ALT 22 U/L (0-41) 10/16/22 15:35 Alkaline Phosphatase 90 U/L (40-130) 10/16/22 15:35 Total Protein 6.6 g/dL (6.6-8.7) 10/16/22 15:35 Albumin 3.7 g/dL (3.5-5.2) 10/16/22 15:35 Globulin 2.9 g/dL (1.3-4.6) 10/16/22 15:35 Urine Color Yellow (Yellow) 10/16/22 17:41 Urine Appearance Hazy (CLEAR) A 10/16/22 17:41 Urine pH 5 (5-7) 10/16/22 17:41 Ur Specific [place] 1.025 (1.005-1.030) 10/16/22 17:41 Urine Protein 2+ (Negative) H 10/16/22 17:41 Urine Glucose (UA) 4+ (Normal) H 10/16/22 17:41 Urine Ketones Negative (Negative) 10/16/22 17:41 Urine Blood 3+ (Negative) H 10/16/22 17:41 Urine Nitrate Positive (Negative) H 10/16/22 17:41 Urine Bilirubin Neg (Negative) 10/16/22 17:41 Urine Urobilinogen Neg mg/dL (Negative) 10/16/22 17:41 Ur Leukocyte Esterase 2+ (Negative) H 10/16/22 17:41 Urine RBC 5-10 /hpf (0-2) H 10/16/22 17:41 Urine WBC 5-10 /hpf (0-5) H 10/16/22 17:41 Ur Squamous Epith Cells 0-4 /hpf (0-5) H 10/16/22 17:41 Amorphous Sediment 1+ /hpf 10/16/22 17:41 Urine Bacteria 1+ /hpf (NONE) H 10/16/22 17:41 Serum Ketones Negative (Negative) 10/16/22 15:35 Discharge Plan Discharge Patient Disposition: Home Clinical Impression: Acute balanitis due to infection Condition: Stable Prescriptions: New doxycycline monohydrate 100 mg capsule 100 mg PO BID 10 Days Qty: 20 0RF nystatin 100,000 unit/gram cream 1 applic topical BID Qty: 30 0RF fluconazole 150 mg tablet 150 mg PO Q3D Qty: 2 0RF No Action (DME) pen needle, diabetic 32 gauge x 5/32 needle See Rx Instructions .ROUTE .MEDSUPPLY Qty: 200 5RF Rx Instructions: 5 daily calcium carbonate-vitamin D3 500 mg-15 mcg (600 unit) tablet 1 tab PO BID Qty: 60 2RF (DME) cpap See Rx Instructions .Route .MEDSUPPLY Qty: 1 0RF Rx Instructions: As directed 99 months, npi [id number] use cpap nightly and needs all supplys (DME) diabetic shoes with inserts See Rx Instructions .Route .MEDSUPPLY Qty: 1 0RF Rx Instructions: As directed albuterol sulfate [Ventolin HFA] 90 mcg/actuation HFA aerosol inhaler 2 puff inhalation Q6H PRN (Reason: shortness of breath or wheezing) Qty: 8.5 0RF Victoza 3-Karan 0.6 mg/0.1 mL (18 mg/3 mL) pen injector 1.2 mg SUBCUT DAILY Label Comments: [facility] provider writing tamsulosin 0.4 mg capsule 0.4 mg PO DAILY Hold Instructions: Resume on 05/09/22. Label Comments: [facility] writing sertraline 50 mg tablet 50 mg PO DAILY Label Comments: [facility] writing provider insulin lispro [Humalog KwikPen Insulin] 100 unit/mL insulin pen 3 - 22 unit SUBCUT TID Label Comments: [facility] provider writing Tresiba FlexTouch U-200 200 unit/mL (3 mL) insulin pen 55 unit SUBCUT BID Label Comments: [facility] provider writing buspirone 15 mg tablet 15 mg PO DAILY PRN (Reason: Anxiety) Label Comments: [facility] writing provider atorvastatin 10 mg tablet 10 mg PO BEDTIME Label Comments: [facility] provider writing Discharge Orders: Discharge ED (Routine); Ordered 10/16/22 Ordered By: Lee Blacno Referrals: Jameson Beal, SECTION CUTTER-C [Primary Care Provider] - Discharge Diet: Usual diet Discharge Activity: Increase activity as tolerated Patient Instructions: [place] (ED) Activity Restrictions/Additional Instructions: Take antibiotics as directed. Take doxycycline 100mg twice daily for 7 days. Use fluconazole 150mg every 3 days for 2 doses. Use nystatin cream to the glans of the penis twice a day after washing gently with mild soap and water. Coding Level of Care Code ED Media Marketing Specialist for Juan Jose Alcala
[2022-10-16] MEDS: doxycycline 100 mg Tablet PO (18:05)
[2022-10-16] MEDS: nystatin cream 30 gm 1 APPLIC TOPICAL (18:05)
[2022-10-16 18:37] LABS: Add Urine Microscopic? YES; Bilirubin Urine Neg (Negative); Blood Urine 3+ (Negative); Glucose Urine UA 4+ (Normal); Ketones Urine Negative (Negative); Leukocyte Esterase Urine 2+ (Negative); Nitrate Urine Positive (Negative); Protein Urine 2+ (Negative); Specific Gravity, Urine 1.025 (1.005-1.030); Urine Appearance Hazy (CLEAR); Urine Color Yellow (Yellow); Urobilinogen Urine Neg (Negative); pH Urine 5 (5-7)
[2022-10-16 18:40] LABS: Add Urine Culture? Yes; Amorphous Sediment Urine 1+ /hpf; Bacteria Urine 1+ /hpf; Squamous Epithelial Cell Urine 0-4 /hpf (0-5)
== END 2022-10-16 18:52 | disposition home or self-care (01) ==
PROVIDERS: Family Medicine; Emergency Provider Nurse Practitioner Family; PCP Nurse Practitioner
DX: N48.1 Balanitis (principal); Z79.4 Long term (current) use of insulin; Z87.891 Personal history of nicotine dependence; E11.22 Type 2 diabetes mellitus with diabetic chronic kidney disease; I12.9 Hypertensive chronic kidney disease with stage 1 through stage 4 chronic kidney disease, or unspecified chronic kidney disease; N18.30 Chronic kidney disease, stage 3 unspecified; J44.9 Chronic obstructive pulmonary disease, unspecified
CPT/HCPCS: 36415; 36416; 80053; 81001; 82009; 82962; 85025; 87086; 99283

== ENCOUNTER → 2022-11-20 11:00 | Outpatient (BNVA) | payer MEDICARE, SELFPAY | PROVIDERS: PCP Nurse Practitioner; Visit Provider Nurse Practitioner | DX: E11.8 Type 2 diabetes mellitus with unspecified complications (principal); E55.9 Vitamin D deficiency, unspecified; Z79.4 Long term (current) use of insulin | CPT/HCPCS: 80053; 80061; 82306; 83036; 85025 ==

== ENCOUNTER 2022-11-23 09:15 | Outpatient (CLI) | payer OTHER, SELFPAY ==
--- NOTE | 2022-11-23 10:15 | US_ITS ---
WS: [id number] ULTRASOUND RENAL TECHNIQUE: Ultrasound examination of both kidneys. CLINICAL INFORMATION: N28.9 - Disorder of kidney and ureter, unspecified COMPARISON: CT September 21, 2022 and ultrasound April 29, 2022 FINDINGS: RIGHT: Renal cortical atrophy Echogenicity: Increased Hydronephrosis: None. Perinephric fluid: None. Right kidney measures: 10.0 cm x 3.8 cm x 5.8 cm. LEFT: Simple cyst lower pole LEFT kidney described below Renal cortical atrophy Echogenicity: Increased Hydronephrosis: None. Perinephric fluid: None. Left kidney measures: 10.3 cm x 4.6 cm x 4.7 cm. Normal visualized aorta. Yeung catheter. Prostate measures 5.4 x 4.1 x 4.2 cm US/US renal BI* [id number] IMPRESSION: 1. 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 2. Yeung catheter. 3. Lower pole LEFT simple renal cyst measuring 1.4 x 1.1 x 1.8 cm. This corres ponds to the lesion seen on CT 4. Enlarged prostate.
== END 2022-11-23 09:16 | disposition home or self-care (01) ==
LOC: RAD 09:21
PROVIDERS: PCP Nurse Practitioner; Visit Provider Nurse Practitioner
DX: N28.89 Other specified disorders of kidney and ureter (principal); N26.1 Atrophy of kidney (terminal); N28.1 Cyst of kidney, acquired; N40.0 Benign prostatic hyperplasia without lower urinary tract symptoms; Z96.0 Presence of urogenital implants
CPT/HCPCS: 76770

== ENCOUNTER → 2023-02-05 11:51 | Outpatient (BNVA) | payer MEDICARE, SELFPAY | PROVIDERS: PCP Nurse Practitioner; Visit Provider Nurse Practitioner | DX: E11.65 Type 2 diabetes mellitus with hyperglycemia (principal); Z79.4 Long term (current) use of insulin; D72.819 Decreased white blood cell count, unspecified; E55.9 Vitamin D deficiency, unspecified | CPT/HCPCS: 80053; 80061; 82306; 83036; 84443; 85025 ==

== ENCOUNTER 2023-02-28 06:00 | Outpatient (RCR) | payer OTHER, SELFPAY | END 2023-03-15 23:59 | disposition home or self-care (01) | LOC: APT 06:00 | PROVIDERS: Visit Provider Emergency Medicine Emergency Medical Services | DX: R53.1 Weakness (principal) | CPT/HCPCS: 97110; 97161 ==

== ENCOUNTER → 2023-03-13 15:06 | Outpatient (BNVA) | payer OTHER, SELFPAY | PROVIDERS: PCP Nurse Practitioner; Visit Provider Internal Medicine Nephrology | DX: N17.9 Acute kidney failure, unspecified (principal); N18.9 Chronic kidney disease, unspecified | CPT/HCPCS: 80069; 82043; 82310; 83970; 85025 ==

== ENCOUNTER 2023-03-16 06:00 | Outpatient (RCR) | payer OTHER, SELFPAY | END 2023-04-05 23:59 | disposition home or self-care (01) | LOC: APT 06:00 | PROVIDERS: PCP Nurse Practitioner; Visit Provider Emergency Medicine Emergency Medical Services | DX: R53.1 Weakness (principal) | CPT/HCPCS: 97110; 97530 ==

== ENCOUNTER → 2023-05-07 10:29 | Outpatient (BNVA) | payer MEDICARE, SELFPAY | PROVIDERS: PCP Nurse Practitioner; Visit Provider Registered Nurse | DX: E03.8 Other specified hypothyroidism (principal); E11.65 Type 2 diabetes mellitus with hyperglycemia; Z79.4 Long term (current) use of insulin | CPT/HCPCS: 80053; 80061; 80069; 83036; 84443 ==

== ENCOUNTER 2023-07-23 10:57 | Inpatient (IN) | payer OTHER, SELFPAY ==
[2023-07-23] VITALS (9 sets, daily range): BP systolic 101–140; BP diastolic 51–71; PULSE 51–80; RESP 16–18; TEMP 36.3–36.7; O2SAT 94–100; BMI 31.1
--- NOTE | 2023-07-23 10:59 | ECG_ITS ---
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 Measurements Intervals [place] Rate: 48 P: 16 TN: 197 QRS: 17 QRSD: 137 T: 18 QT: 402 QTc: 361 Interpretive Statements SINUS BRADYCARDIA WITH SINUS ARRHYTHMIA INTRAVENTRICULAR CONDUCTION DELAY [130+ ms QRS DURATION] Compared to ECG 04/29/2022 17:04:51 Intraventricular conduction delay now present Sinus rhythm no longer present Myocardial infarct finding no longer present Electronically Signed On 07-23-2023 15:28:26 COORDINATOR OF EVALUATION by Lyle Godfrey M.D. [id number]
--- NOTE | 2023-07-23 10:59 | XRR_ITS ---
PROCEDURE INFORMATION: Exam: XR Chest Exam date and time: 07/23/2023 11:29 AM Age: 82 years old Clinical indication: Weakness TECHNIQUE: Imaging protocol: Radiologic exam of the chest. Views: 1 view. COMPARISON: CR XR chest 1V portable [id number] 04/29/2022 3:33 PM FINDINGS: Lungs: No acute pulmonary infiltrate detected. Pleural spaces: No significant pleural fluid. No pneumothorax detected. Heart/Mediastinum: Heart size difficult to assess but grossly stable compared to 05/09/2022. No pulmonary vascular congestion. Diaphragm: Chronic elevation of left hemidiaphragm similar to prior study. Bones/joints: No obvious acute abnormality. XR/XR chest 1V portable [id number] IMPRESSION: No acute cardiopulmonary abnormality detected on AP portable chest radiograph.
--- NOTE | 2023-07-23 11:37 | PC.NURSE ---
Pt on bedside surveillance monitor
--- NOTE | 2023-07-23 11:44 | CTR_ITS ---
PROCEDURE INFORMATION: Exam: CT Head Without Contrast Exam date and time: 07/23/2023 11:52 AM Age: 82 years old Clinical indication: Injury or trauma; Fall; Other: Denies hitting head; Dizziness; Additional info: Trauma/syncope/fall TECHNIQUE: Imaging protocol: Computed tomography of the head without contrast. Radiation optimization: All CT scans at this facility use at least one of these dose optimization techniques: automated exposure control; mA and/or kV adjustment per patient size (includes targeted exams where dose is matched to clinical indication); or iterative reconstruction. COMPARISON: CT head wo con* [id number] 04/29/2022 4:01 PM RADIATION DOSE METRICS: Total DLP (mGy-cm): 933.3 FINDINGS: Brain: A few very small foci of faintly increased cortical attenuation are believed to represent artifact emanating from the adjacent cranium. No obvious acute intracranial hemorrhage or localized mass effect is identified. Severe chronic microvascular ischemic disease is seen within the white matter of both cerebral hemispheres. These findings appear stable compared to 04/29/2022. There are no subdural collections. Atherosclerotic calcifications involve the carotid siphons. Cerebral ventricles: The ventricles are stable size and position compared to the prior study. No midline shift. Paranasal sinuses: Visualized portions of paranasal sinuses are well aerated. Mastoid air cells: Visualized portions of mastoid sinuses are not opacified. Bones/joints: No obvious fracture of the cranium. Soft tissues: Other than as stated above, no obvious acute abnormality. CT/CT head wo con* [id number] IMPRESSION: No acute intracranial hemorrhage or mass effect.
--- NOTE | 2023-07-23 11:44 | CTR_ITS ---
PROCEDURE INFORMATION: Exam: CT Cervical Spine Without Contrast Exam date and time: 07/23/2023 11:52 AM Age: 82 years old Clinical indication: Injury or trauma; Fall; Other: Denies hitting head; Additional info: Syncope/fall TECHNIQUE: Imaging protocol: Computed tomography of the cervical spine without contrast. Radiation optimization: All CT scans at this facility use at least one of these dose optimization techniques: automated exposure control; mA and/or kV adjustment per patient size (includes targeted exams where dose is matched to clinical indication); or iterative reconstruction. COMPARISON: CT head wo con* [id number] 07/23/2023 11:52 AM RADIATION DOSE METRICS: Total DLP (mGy-cm): 666.1 FINDINGS: Bones/joints: No obvious acute cervical spine fracture identified. 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 The chronic cervical spinal stenosis is associated with multilevel chronic spinal cord compression. Prevertebral and retropharyngeal spaces: No prevertebral soft tissue swelling. Lungs: No acute abnormality seen in the imaged portions of the lung apices. Thyroid: Incidental note of a solid 11 mm nodule posterior left thyroid lobe and a probable cyst posterior right thyroid lobe. Soft tissues: No obvious acute abnormality detected. Bilateral carotid bifurcation atherosclerotic calcifications are noted. CT/CT cervical spin wo con* [id number] IMPRESSION: 1. No acute cervical spine fracture detected. 2. Severe chronic cervical spondylosis and associated spinal stenosis. COMMENTS: Consistent with the [employer]'s Incidental Findings Committee white paper (J Am Drew Radiol 2015): In patients aged 35 years and older with an incidental thyroid nodule equal to or greater than 1.[address], MRI or extrathyroidal US, further evaluation with dedicated thyroid US is recommended for patients with normal life expectancy and without comorbidities. For smaller nodules without suspicious features, no further evaluation or follow up is recommended.
--- NOTE | 2023-07-23 11:44 | W.ED.SYNCOPE ---
HPI - Syncope General: Chief Complaint: Dizziness Stated Complaint: weakness, fall Time Seen by Provider: 07/23/23 11:20 Source: patient Mode of arrival: EMS Limitations: no limitations History of Present Illness: Patient is a 82-year-old male who presents to ED today via EMS from his primary care office. Patient states he went to the office this morning for routine blood work. Apparently while walking through the office he became weak and states the next thing I know I was on the ground . According to EMS report from bystanders in the office patient fell and lost consciousness. Apparently he did strike his head. They state when he came to he complained of feeling nauseous. Patient denies chest pain, shortness of breath, difficulty breathing. Denies palpitations. EMS reported hypotension upon their encoutner with patient. This has improved here. Upon arrival to the ED patient states he feels back to normal. PMH significant for elevated cholesterol, diabetes, hypothyroidism, CKD, COPD, sleep apnea. MD complaint: loss of consciousness and felt faint Onset (ago): hour(s) -: second(s) Prodromal symptoms: other (weak) Witnessed: Yes - by Bystander Context: other (while walking) Injuries sustained associated with event: none Associated symptoms: Reports no associated symptoms and lightheadedness; Deny abdominal pain, chest pain, fever(s), headache(s) or nausea Treatments prior to arrival: IV fluids Review of Systems Const: Denies: fever(s), chills, body aches, fatigue or malaise Eyes: Denies: change in vision, blurry vision, photophobia, floaters or seeing flashes Card: Reports: lightheadedness and syncope; Denies: chest pain, palpitations, irregular heart rhythm, edema, swelling of feet/ankles, pre-syncope, dyspnea on exertion, orthopnea, leg pain with exertion or acrocyanosis Resp: Denies: dyspnea, productive cough, hemoptysis or chest congestion GI: Denies: abdominal pain, nausea, vomiting or diarrhea Musc: Denies: neck pain, back pain, extremity pain, extremity swelling, joint pain or joint swelling Skin/Breast: Denies: rash Neuro: Reports: weakness in extremities (legs-states this is an ongoing problem); Denies: headache(s), numbness in extremities or sensory changes [facility] PFSH: Medical History (Updated 07/23/23 @ 14:43 by STEPHANI Fallon) Prostate enlargement Adult onset hypothyroidism Diabetes mellitus with hyperglycemia, with long-term current use of insulin 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 Obstructive sleep apnea 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 Essential (primary) hypertension Vitamin D insufficiency Anxiety Chronic kidney disease (CKD), stage III (moderate) Surgical History History of cataract surgery Both eyes H/O esophagogastroduodenoscopy 09/02/2019: Mild gastritis History of colonoscopy with polypectomy (~2009) 09/02/2019: 3 mm sessile polyp x2 descending colon Family History Mother Family history non-contributory Father Obesity Denies family history of Anesthesia complication Bleeding disorder Social History Smoking and tobacco/nicotine status: former use of tobacco/nicotine Quit status (tobacco/nicotine): has quit using Former quit date comment: 3 months ago Second hand smoke exposure: No Alcohol intake: current Alcohol intake frequency: holidays/special occasions only Alcohol type: beer Substance/Drug Use: never Adopted: No Caregiver/support person: Yes Lives independently: Yes Household members: spouse Housing: House Marital status: Highest education level completed: High School Graduate service: Yes status: Retired branch: [employer] Current occupational status: retired Current occupational exposures/hazards: No Pets and animals: No Sexually active: No Do you think of yourself as: Straight/Heterosexual Current gender identity: Male Arin/Zoroastrian: Anabaptist Special arin needs: No Agree to transfusion: No Physical Exam Const: COMMON NORMALS: no acute distress, patient oriented x3, no limitations, alert and well nourished GENERAL APPEARANCE: cooperative HENMT: COMMON NORMALS: normocephalic and atraumatic HEAD & SCALP: normocephalic and atraumatic Eye: GENERAL EYE: appearance normal, both eyes and all related structures Neck/C-Spine: COMMON NORMALS: full ROM GENERAL: Yes normal visual inspection CERVICAL SPINE: No Cervical spine tenderness Chest: COMMONS NORMALS: normal inspection of the chest Resp: COMMON NORMALS: normal respiratory effort and clear to auscultation bilaterally AUSCULTATION: clear to auscultation bilaterally Cardio: COMMON NORMALS: regular rhythm RATE: bradycardic RHYTHM: regular rhythm GI: COMMON NORMALS: Normal to inspection, nondistended, normoactive bowel sounds present, Soft to palpation and non-tender PALPATION: Yes Soft to palpation Back/Pelvis: COMMON NORMALS: thoracic and lumbar spine normal to inspection and no thoracic nor lumbar tenderness Extremity: COMMON NORMALS: normal to inspection, no clubbing, cyanosis or edema, no calf tenderness and no pedal edema GENERAL: Yes normal exam except as noted Neuro: JESE COMA SCALE: document GCS findings Jese coma scale eye opening: Spontaneous Jese coma scale verbal response: Orientated Artie coma scale motor response: Obey commands Artie coma scale total score: 15 COMMON NORMALS: patient oriented x3, moves all extremities, no focal motor deficits and no sensory deficits noted SENSORIUM/ORIENTATION: Yes alert Skin: COMMON NORMALS: no rashes or lesions noted GENERAL SKIN EXAM: no rashes or lesions noted Course Vital Signs: Vital signs: Vital Signs Temperature 97.4 F L 07/23/23 11:21 Pulse Rate 71 07/23/23 13:59 Respiratory Rate 16 07/23/23 13:53 Blood Pressure 124/60 07/23/23 13:30 Pulse Oximetry 95 07/23/23 13:53 Oxygen Delivery Me thod Room Air 07/23/23 13:53 MDM - Syncope Medical Decision Making Patient is a nice 82-year-old male here following sounds to be a syncopal episode at his primary care office. Blood work today showing acute hyperkalemia with a potassium of 7.0. Magnesium normal. He does have worsening of his CKD. He does have EKG changes. He was given calcium gluconate, insulin/dextrose, and albuterol. This will be rechecked. I have spoken to Dr. Pierce, hospitalist, who will admit patient. Dr. Maher will write admit orders. Medical Records I reviewed the patient's medical records. Lab Data I reviewed the patient's lab results. 07/23/23 12:11 07/23/23 12:11 Radiology Impressions Chest X-Ray 07/23/23 10:59 IMPRESSION: No acute cardiopulmonary abnormality detected on AP portable chest radiograph. Cervical Spine CT 07/23/23 11:44 IMPRESSION: 1. No acute cervical spine fracture detected. 2. Severe chronic cervical spondylosis and associated spinal stenosis. COMMENTS: Consistent with the [employer]'s Incidental Findings Committee white paper (J Am Drew Radiol 2015): In patients aged 35 years and older with an incidental thyroid nodule equal to or greater than 1.[address], MRI or extrathyroidal US, further evaluation with dedicated thyroid US is recommended for patients with normal life expectancy and without comorbidities. For smaller nodules without suspicious features, no further evaluation or follow up is recommended. Head CT 07/23/23 11:44 IMPRESSION: No acute intracranial hemorrhage or mass effect. Laboratory Results WBC 9.55 10^3/uL (3.29-11.43) 07/23/23 12:11 RBC 3.47 10^6/uL (3.85-5.65) L 07/23/23 12:11 Hgb 11.10 g/dL (11.27-16.99) L 07/23/23 12:11 Hct 33.0 % (37-53) L 07/23/23 12:11 MCV 95.1 fl (82-101) 07/23/23 12:11 MCH 32.0 pg (27-33) 07/23/23 12:11 MCHC 33.6 g/dL (30-55) 07/23/23 12:11 RDW 11.7 % (12.1-15.1) L 07/23/23 12:11 Plt Count 139 10^3/cmm (157-399) L 07/23/23 12:11 MPV 10.4 fL (7.4-10.4) 07/23/23 12:11 Neut % (Auto) 68.9 % 07/23/23 12:11 Lymph % (Auto) 21.7 % 07/23/23 12:11 [place] % (Auto) 5.4 % 07/23/23 12:11 Eos % (Auto) 1.5 % 07/23/23 12:11 Baso % (Auto) 0.2 % 07/23/23 12:11 Neut # (Auto) 6.58 10^3/uL (1.8-7.7) 07/23/23 12:11 Lymph # (Auto) 2.1 10^3/uL (0.8-4.8) 07/23/23 12:11 [place] # (Auto) 0.5 10^3/uL (0.2-0.9) 07/23/23 12:11 Eos # (Auto) 0.1 10^3/uL (0.0-0.8) 07/23/23 12:11 Baso # (Auto) 0.0 10^3/uL (0.0-0.1) 07/23/23 12:11 Nucleated RBC % (auto) 0 % 07/23/23 12:11 Nucleated RBCs # 0.0 /100WBC 07/23/23 12:11 Sodium 138 mmol/L (136-145) 07/23/23 12:11 Potassium 7.0 mmol/L (3.5-5.1) H* 07/23/23 12:11 Chloride 109 mmol/L (98-107) H 07/23/23 12:11 Carbon Dioxide 18 mmol/L (22-29) L 07/23/23 12:11 Anion Gap 18.0 (5-19) 07/23/23 12:11 BUN 71 mg/dL (8-23) H 07/23/23 12:11 Creatinine 2.4 mg/dL (0.7-1.2) H 07/23/23 12:11 GFR Calculation Not Reportable 07/23/23 12:11 Glucose 190 mg/dL (65-115) H 07/23/23 12:11 Calculated Osmolality 312 mOsm/kg (285-295) H 07/23/23 12:11 Calcium 10.3 mg/dL (8.5-10.5) 07/23/23 12:11 Magnesium 1.9 mg/dL (1.7-2.3) 07/23/23 12:11 Total Bilirubin 0.3 mg/dL (0.15-1.2) 07/23/23 12:11 AST 27 U/L (0-40) 07/23/23 12:11 ALT 40 U/L (0-41) 07/23/23 12:11 Alkaline Phosphatase 74 U/L (40-130) 07/23/23 12:11 Troponin T Baseline 42 ng/L (0-15) H 07/23/23 12:11 Total Protein 6.6 g/dL (6.6-8.7) 07/23/23 12:11 Albumin 4.0 g/dL (3.5-5.2) 07/23/23 12:11 Globulin 2.6 g/dL (1.3-4.6) 07/23/23 12:11 TSH 6.66 uIU/mL (0.27-4.20) H 07/23/23 12:11 All radiology interpretation(s) finalized by discharge Discharge Plan Discharge Patient Disposition: Placed in Observation Clinical Impression: Thyroid nodule incidentally noted on imaging study, Chronic kidney disease (CKD), stage III (moderate), Acute hyperkalemia, Acute kidney injury, Bilateral leg weakness, Syncope Condition: Stable Coding Level of Care Code ED Instructor Looping for Juan Jose Alcala
[2023-07-23 12:41] LABS: Basophils % 0.2 %; Eosinophils # 0.1 10^3/uL (0.0-0.8); Eosinophils % 1.5 %; Lymphocytes # 2.1 10^3/uL (0.8-4.8); Lymphocytes % 21.7 %; Mean Corpuscular HGB Conc 33.6 g/dL (30-55); Mean Corpuscular Volume 95.1 fl (82-101); Mean Platelet Volume 10.4 fL (7.4-10.4); Monocytes # 0.5 10^3/uL (0.2-0.9); Monocytes % 5.4 %; Neutrophils # 6.58 10^3/uL (1.8-7.7); Neutrophils % 68.9 %; Nucleated Red Blood Cells % 0 %; Platelet Count 139 10^3/cmm (157-399); Red Blood Count 3.47 10^6/uL (3.85-5.65); Red Cell Distribution Width 11.7 % (12.1-15.1); White Blood Count 9.55 10^3/uL (3.29-11.43)
[2023-07-23 12:53] LABS: Troponin(5th) Baseline 42 ng/L (0-15)
[2023-07-23 13:00] LABS: Alanine Aminotransferase 40 U/L (0-41); Alkaline Phosphatase 74 U/L (40-130); Aspartate Amino Transferase 27 U/L (0-40); Blood Urea Nitrogen 71 mg/dL (8-23); Calcium 10.3 mg/dL (8.5-10.5); Carbon Dioxide 18 mmol/L (22-29); Chloride 109 mmol/L (98-107); Globulin 2.6 g/dL (1.3-4.6); Glucose 190 mg/dL (65-115); Osmolality Calculated 312 mOsm/kg (285-295); Sodium 138 mmol/L (136-145); Thyroid Stimulating Hormone 6.66 uIU/mL (0.27-4.20); Total Bilirubin 0.3 mg/dL (0.15-1.2); Total Protein 6.6 g/dL (6.6-8.7)
[2023-07-23 13:43] LABS: Magnesium 1.9 mg/dL (1.7-2.3)
--- NOTE | 2023-07-23 13:44 | ECG_ITS ---
[facility] Test Date: 2023-07-23 Pat Name: Vik Bruce Department: Room: Gender: Male [employer]: : 1940 Requested By: Dorcas Foote Order Number: [id number] Venkata MD: Lyle Godfrey M.D. 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 [id number]
[2023-07-23] MEDS: dextrose 50% syringe 50 mL IVP (13:54)
[2023-07-23] MEDS: calcium gluconate 0.1 gm/mL 10% SDV 10mL 1 GM IVP (13:54)
[2023-07-23] MEDS: insulin regular-human 100 units/1 mL 10 UNIT IVP (13:55)
[2023-07-23] MEDS: albuterol 2.5 mg/3 mL Neb INHALATION (13:56)
[2023-07-23 14:43] LABS: Troponin 5 2HR 38.54 ng/L (0-15)
[2023-07-23 14:44] LABS: Troponin 5 2HR Delta -3.46 ABS# (0-10)
[2023-07-23 15:58] LABS: Anion Gap 14.5 (5-19); Blood Urea Nitrogen 71 mg/dL (8-23); Calcium 10.7 mg/dL (8.5-10.5); Carbon Dioxide 19 mmol/L (22-29); Chloride 110 mmol/L (98-107); Creatine Phosphokinase 104 U/L (39-308); Glucose 98 mg/dL (65-115); Lipase 97 U/L (13-60); Osmolality Calculated 305 mOsm/kg (285-295); Sodium 137 mmol/L (136-145)
[2023-07-23 16:01] LABS: Potassium 6.5 mmol/L (3.5-5.1)
--- NOTE | 2023-07-23 16:50 | PM.HP ---
Providers/Chief Complaint Admitting Physician: Madelyn Pierce MD Primary Care Provider: Jameson Beal, INSTRUMENT AND CONTROLS TECHNICIAN-C Chief Complaint: weakness, fall History of Present Illness Vik Bruce is a 82 year old male who presents with a chief complaint of syncopal episode at primary care provider's office and was found to have high potassium and elevated BUN and creatinine in the ER. From his recollection, he passed out as he was walking into the clinic for his regular lab draw appointment. He had just gotten out of his car when it happened and was not using a walker as he is prescribed. He did not feel dizzy, noticed any vision changes, chest pain, palpitations, nausea or other preceding symptoms. From his perspective his legs and ankles gave out like they have before causing him to go down. He denies it but staff at the facility reported that he hit his head and lost consciousness for a brief period of time. He says he was near a wall when he went down. Currently denies any headache. He did have an episode of vomiting at the clinic as well as an episode of vomiting here. Denies any focal weakness. Has not had any recent changes in medications. No recent fevers. He has not had any vomiting preceding the 2 episodes of vomiting today. No changes in urine output. He has had some loose stools but denies significant increase in volume of stool output. He has had a little bit of a cough and runny nose. EMS was called to the clinic. They reported the patient's blood pressure was low when they got there. Mr. Bruce received some IV fluids in route and once here vitals were stable. He does have a history of chronic kidney disease and previously saw Dr. Shepherd but has not been seen by nephrology since Dr. Shepherd retired. Earlier this year BUN and creatinine were 26/1.5. Today 71/2.4. Given hyperkalemia and what appears to be acute kidney injury patient is being admitted for further evaluation and treatment. He has received additional fluids as well as insulin and D50, calcium gluconate and albuterol. Repeat potassium was 6.5. Review of Systems General: Reports: Other (ROS as per HPI or as otherwise noted here) ENMT: Reports: other (Recent antibiotics for poor dentition) Musc: Reports: neck pain (If he stands for a long time his neck starts bothering him) Neuro: Reports: other (Reports ocular migraines with only vision changes) Medications/Allergies Home Medications Medication Instructions Recorded Confirmed Last Taken Type cpap #1 ea 01/15/20 07/23/23 Unknown Rx diabetic shoes with inserts #1 ea 01/07/21 07/23/23 Unknown Rx pen needle, diabetic 32 gauge x #200 ea 09/20/21 07/23/23 Unknown Rx calcium carbonate 500 mg-vitamin 1 tab PO BID #60 tabs 12/22/21 07/23/23 07/22/23 Rx D3 15 mcg (600 unit) tablet albuterol sulfate 90 mcg/actuation 2 puff inhalation Q6H PRN 03/16/22 07/23/23 07/22/23 Rx aerosol inhaler (Ventolin HFA) shortness of breath or wheezing #8.5 grams atorvastatin 10 mg tablet 10 mg PO BEDTIME 08/29/22 07/23/23 07/22/23 History buspirone 15 mg tablet 15 mg PO DAILY PRN Anxiety 08/29/22 07/23/23 Unknown History sertraline 50 mg tablet 50 mg PO DAILY 08/29/22 07/23/23 07/22/23 History nystatin 100,000 unit/gram topical 1 applic topical BID #30 grams 10/16/22 07/23/23 07/22/23 Rx cream tamsulosin 0.4 mg capsule 0.4 mg PO BID 01/01/23 07/23/23 07/22/23 History semaglutide 0.25 mg or 0.5 mg (2 1 mg SUBCUT .weekly 02/13/23 07/23/23 07/23/23 History mg/3 mL) subcutaneous pen injector (Ozempic) Ankle support evaluation #1 ea 03/06/23 07/23/23 Unknown Rx finasteride 5 mg tablet (Proscar) 5 mg PO DAILY #90 tabs 05/08/23 07/23/23 07/22/23 Rx levothyroxine 50 mcg tablet 50 mcg PO DAILY #90 tabs 05/08/23 07/23/23 07/22/23 Rx sodium chloride 1,000 mg soluble 1,000 mg PO DAILY #30 tabs 05/08/23 07/23/23 07/22/23 Rx tablet aspirin 81 mg tablet,delayed 81 mg PO DAILY 07/23/23 07/23/23 07/22/23 History release Allergies Allergy/AdvReac Type Severity Reaction Status Date / Time Penicillins Allergy Unknown SHELLEY-Cicill Verified 07/23/23 11:34 Lip/Tongue/Throat PFSH Acute PFSH: Medical History (Updated 07/23/23 @ 21:24 by Madelyn Pierce MD) Thyroid nodule incidentally noted on imaging study Hyperlipidemia Prostate enlargement Adult onset hypothyroidism Diabetes mellitus with hyperglycemia, with long-term current use of insulin 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 Obstructive sleep apnea 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 Essential (primary) hypertension Vitamin D insufficiency Anxiety Chronic kidney disease (CKD), stage III (moderate) Surgical History History of cataract surgery Both eyes H/O esophagogastroduodenoscopy 09/02/2019: Mild gastritis History of colonoscopy with polypectomy (~2009) 09/02/2019: 3 mm sessile polyp x2 descending colon Family History Mother Family history non-contributory Father Obesity Denies family history of Anesthesia complication Bleeding disorder Social History (Updated 07/23/23 @ 21:24 by Madelyn Pierce MD) Smoking and tobacco/nicotine status: former use of tobacco/nicotine Quit status (tobacco/nicotine): has quit using Second hand smoke exposure: No Alcohol intake: current Alcohol intake frequency: holidays/special occasions only Alcohol type: beer Substance/Drug Use: never Adopted: No Caregiver/support person: Yes Lives independently: Yes Household members: spouse Housing: House Marital status: Highest education level completed: High School Graduate service: Yes status: Retired branch: [employer] Current occupational status: retired Current occupational exposures/hazards: No Pets and animals: No Sexually active: No Do you think of yourself as: Straight/Heterosexual Current gender identity: Male Arin/Scientology: [place] Special arin needs: No Agree to transfusion: No Vitals/I&O/Wt Last Vital Signs Temp 97.4 F L 07/23/23 11:21 Pulse 80 07/23/23 15:30 Resp 16 07/23/23 15:30 BP 111/51 07/23/23 15:30 Pulse Ox 94 07/23/23 15:30 O2 Del Method Room Air 07/23/23 15:30 Weight last 48 hrs Weight 93.44 kg Physical Exam Narrative: Patient is awake and alert. Looks younger than stated age. Able to provide history with the exception of the timeframe that he does not recall being unconscious as reported by EMS/clinic staff. Normocephalic. He does have some chronic skin changes noted in various locations on his scalp. No significant bruising or sore spots. No current neck pain. Lungs are clear to auscultation bilaterally. Cardiovascular exam reveals a regular rhythm bradycardic at times with some skipped beats. Pulses equal x 4. Abdomen is soft, rotund, positive bowels sounds. Trace pitting edema bilaterally. Skin however is quite dry. Speech is clear. Strength is 4 out of 4 in upper extremities and 4 out of 4 in lower extremities. Some muscle wasting noted in the hands as well as thigh areas. Strength appears equal proximally and distally in the upper and lower extremities presently. Data 07/23/23 12:11 07/23/23 15:20 Other Labs: Radiology Impressions Chest X-Ray 07/23/23 10:59 IMPRESSION: No acute cardiopulmonary abnormality detected on AP portable chest radiograph. Cervical Spine CT 07/23/23 11:44 IMPRESSION: 1. No acute cervical spine fracture detected. 2. Severe chronic cervical spondylosis and associated spinal stenosis. COMMENTS: Consistent with the [employer] [place] [employer]'s Incidental Findings Committee white paper (J Am Drew Radiol 2015): In patients aged 35 years and older with an incidental thyroid nodule equal to or greater than 1.[address], MRI or extrathyroidal US, further evaluation with dedicated thyroid US is recommended for patients with normal life expectancy and without comorbidities. For smaller nodules without suspicious features, no further evaluation or follow up is recommended. Head CT 07/23/23 11:44 IMPRESSION: No acute intracranial hemorrhage or mass effect. Laboratory Results WBC 9.55 10^3/uL (3.29-11.43) 07/23/23 12:11 RBC 3.47 10^6/uL (3.85-5.65) L 07/23/23 12:11 Hgb 11.10 g/dL (11.27-16.99) L 07/23/23 12:11 Hct 33.0 % (37-53) L 07/23/23 12:11 MCV 95.1 fl (82-101) 07/23/23 12:11 MCH 32.0 pg (27-33) 07/23/23 12:11 MCHC 33.6 g/dL (30-55) 07/23/23 12:11 RDW 11.7 % (12.1-15.1) L 07/23/23 12:11 Plt Count 139 10^3/cmm (157-399) L 07/23/23 12:11 MPV 10.4 fL (7.4-10.4) 07/23/23 12:11 Neut % (Auto) 68.9 % 07/23/23 12:11 Lymph % (Auto) 21.7 % 07/23/23 12:11 [place] % (Auto) 5.4 % 07/23/23 12:11 Eos % (Auto) 1.5 % 07/23/23 12:11 Baso % (Auto) 0.2 % 07/23/23 12:11 Neut # (Auto) 6.58 10^3/uL (1.8-7.7) 07/23/23 12:11 Lymph # (Auto) 2.1 10^3/uL (0.8-4.8) 07/23/23 12:11 [place] # (Auto) 0.5 10^3/uL (0.2-0.9) 07/23/23 12:11 Eos # (Auto) 0.1 10^3/uL (0.0-0.8) 07/23/23 12:11 Baso # (Auto) 0.0 10^3/uL (0.0-0.1) 07/23/23 12:11 Nucleated RBC % (auto) 0 % 07/23/23 12:11 Nucleated RBCs # 0.0 /100WBC 07/23/23 12:11 Sodium 137 mmol/L (136-145) 07/23/23 15:20 Potassium 6.5 mmol/L (3.5-5.1) H* 07/23/23 15:20 Chloride 110 mmol/L (98-107) H 07/23/23 15:20 Carbon Dioxide 19 mmol/L (22-29) L 07/23/23 15:20 Anion Gap 14.5 (5-19) 07/23/23 15:20 BUN 71 mg/dL (8-23) H 07/23/23 15:20 Creatinine 2.3 mg/dL (0.7-1.2) H 07/23/23 15:20 GFR Calculation Not Reportable 07/23/23 15:20 Glucose 98 mg/dL (65-115) 07/23/23 15:20 Calculated Osmolality 305 mOsm/kg (285-295) H 07/23/23 15:20 Calcium 10.7 mg/dL (8.5-10.5) H 07/23/23 15:20 Magnesium 1.9 mg/dL (1.7-2.3) 07/23/23 12:11 Total Bilirubin 0.3 mg/dL (0.15-1.2) 07/23/23 12:11 AST 27 U/L (0-40) 07/23/23 12:11 ALT 40 U/L (0-41) 07/23/23 12:11 Alkaline Phosphatase 74 U/L (40-130) 07/23/23 12:11 Creatine Kinase 104 U/L (39-308) 07/23/23 15:20 Troponin T Baseline 42 ng/L (0-15) H 07/23/23 12:11 Troponin T 120 Minute 38.54 ng/L (0-15) H 07/23/23 14:15 Delta Troponin T -3.46 ABS# (0-10) L 07/23/23 14:15 Total Protein 6.6 g/dL (6.6-8.7) 07/23/23 12:11 Albumin 4.0 g/dL (3.5-5.2) 07/23/23 12:11 Globulin 2.6 g/dL (1.3-4.6) 07/23/23 12:11 Lipase 97 U/L (13-60) H 07/23/23 15:20 TSH 6.66 uIU/mL (0.27-4.20) H 07/23/23 12:11 A&P Assessment and plan (1) Acute hyperkalemia: Present on admission. Currently appears secondary to acute kidney injury. Does not have medications which are classically associate with elevated potassium level that I can discern. (2) Bradycardia: Intermittent. May be secondary to hyperkalemia or other etiology. Not on medications that I would expect to cause bradycardia from available list. (3) Acute kidney injury: In a patient with a history of chronic kidney disease that looks to be stage IIIa previously. Had follow-up with nephrology in the past but has not seen independent beauty consultant since Dr. Shepherd retired. It is possible that today's lab abnormalities represent progression of his chronic kidney disease but suspect acute with elevated osmolality and electrolyte abnormalities. Anion gap is currently normal. Normal CK level. Has not been able to produce a urine specimen yet. (4) Syncope: I suspect vasovagal syncope given timing after walking into the building from his car but cannot fully rule out secondary to bradycardia arrhythmia particularly with finding of hyperkalemia and intermittent bradycardia that has been seen since arrival. He has had previous episodes of syncope or near syncope in the past documented in expanse though this when appears to be more significant with actual loss of consciousness. (5) Concussion: Clinical diagnosis from hitting his head leading to loss of consciousness and an episode of vomiting both in the field and here in the emergency room. CT of his head was unremarkable. Qualifiers: Encounter type: initial encounter Loss of consciousness presence/duration: with LOC of 30 min or less Qualified Code(s): S06.0X1A - Concussion with loss of consciousness of 30 minutes or less, initial encounter (6) Bilateral leg weakness: Both ankles and some possible proximal muscle weakness given degree of muscle wasting though may be secondary to inactivity. Has a walker and a scooter but was not using either of them today. (7) Type 2 diabetes mellitus with stage 3b chronic kidney disease, without long-term current use of insulin: Chronically on semaglutide (8) Hyperlipidemia: Type unknown, chronically on atorvastatin (9) Adult onset hypothyroidism: Chronically on levothyroxine, current TSH is elevated at 6.66 (10) Thyroid nodule incidentally noted on imaging study: 11 mm nodule noted in the left thyroid lobe posteriorly on CT imaging of the neck today (11) COPD (chronic obstructive pulmonary disease) with emphysema: Not currently acute, chronically has albuterol as needed (12) Prostate enlargement: Chronically on Flomax and finasteride at bedtime (13) Anxiety: Clinical on as needed BuSpar and sertraline (14) Obstructive sleep apnea syndrome: Plan Report of neck pain upon extended standing with CT of the neck showing severe chronic cervical spondylosis and associated spinal stenosis Inpatient admission Continue IV fluids, I have ordered an additional bolus and subsequent continuous rate Straight cath for UA Repeat basic metabolic panel in a few hours Already status post calcium gluconate, insulin and D50, albuterol and fluids Kayexalate Telemetry monitoring Nephrology consultation, I discussed with them Serial neuroexams Antiemetics if needed PT evaluation in the morning Hold home semaglutide while inpatient, sliding scale insulin for diabetes Continue home statin therapy Check free T3 and free T4 in the Outpatient follow-up for thyroid nodule can be considered if deemed appropriate/necessary by primary care provider/patient Breathing treatments if needed I will decrease home finasteride to nighttime dosing only, holding the morning dose given syncope, continue finasteride Decrease sertraline to 25 mg currently, BuSpar is only as needed at home VTE prophylaxis: SCDs currently. Have not yet initiated pharmacological DVT prophylaxis as cannot currently rule out emergent need for hemodialysis line placement in the next 24 hours. Will reevaluate in the morning. GI Prophylaxis: PPI ordered for inpatient, not on chronically Telemetry: Ordered due to bradycardia and hyperkalemia Yeung: Not presently indicated but the patient does not have urine output soon plan to do straight cath/potential Yeung if difficulty urinating or if noted to have elevated bladder volume on bladder scan Line(s): peripheral IVs presently Disposition plan: Home with outpatient follow up not only to primary care provider but will also need to get set back up with nephrology. Had previously been seeing Dr. Shepherd. Anticipate he will need laboratory study with initial follow-up and may have some adjustments to medications. Code Status: Full Code Supportive care otherwise Findings, concerns and plans were discussed with patient and he was given an opportunity to ask questions Attestations Medical Necessity Statement*: Anticipated stay greater than two midnights in this patient presenting after syncopal episode in which he has sustained a concussion. He has had at least 2 episodes of vomiting thus far. He was found to have hyperkalemia and acute kidney injury. He has associated bradycardia. No medications on his home medication list account for hyperkalemia or arrhythmia that have identified. Requiring nephrology consultation, IV fluids, close cardiac monitoring, serial lab and further workup as described. Without acute intervention in a monitored setting at risk of potentially life-threatening arrhythmia and even possibly . and High Time for a total of 80 minutes, includes reviewing past or interval history, examining/interviewing patient, placing orders, updating patient/family/other support, communicating with other healthcare providers and documenting encounter Diagnoses Acute hyperkalemia E87.5 Bradycardia R00.1 Acute kidney injury N17.9 Syncope R55 Concussion with loss of consciousness of 30 minutes or less, initial encounter S06.0X1A Encounter type: initial encounter Loss of consciousness presence/duration: with LOC of 30 min or less Bilateral leg weakness R29.898 Type 2 diabetes mellitus with stage 3b chronic kidney disease, without long-term current use of insulin E11.22; N18.32 Hyperlipidemia E78.5 Adult onset hypothyroidism E03.8 Thyroid nodule incidentally noted on imaging study E04.1 COPD (chronic obstructive pulmonary disease) with emphysema J43.9 Prostate enlargement N40.0 Anxiety F41.9 Obstructive sleep apnea syndrome G47.33
[2023-07-23 19:17] LABS: Troponin 5 6HR 42.12 ng/L (0-15); Troponin 5 6HR Delta 0.12 ng/L (0-12)
[2023-07-23] MEDS: sodium chloride 0.9% 1,000 ML 100 ML IV (21:42)
[2023-07-23] MEDS: sodium polystyrene sulfonate 15 gm/60 mL Btl PO (21:42)
[2023-07-23] MEDS: tamsulosin 0.4 mg Capsule PO (21:42)
[2023-07-23] MEDS: calcium carb-vit d 600mg/400unit 1 Tablet 1 EACH PO (21:42)
[2023-07-23 21:51] LABS: Glucose Point of Care 164 mg/dL (70-110)
[2023-07-23 21:54] LABS: Anion Gap 15.4 (5-19); Blood Urea Nitrogen 68 mg/dL (8-23); Calcium 10.2 mg/dL (8.5-10.5); Carbon Dioxide 18 mmol/L (22-29); Chloride 110 mmol/L (98-107); Glucose 153 mg/dL (65-115); Osmolality Calculated 307 mOsm/kg (285-295); Potassium 6.4 mmol/L (3.5-5.1); Sodium 137 mmol/L (136-145)
[2023-07-23 23:58] LABS: Free T4 Free Thyroxine 1.03 ng/dL (0.82-1.77); T3 Free 2.2 PG/ML (2.0-4.4)
[2023-07-24] VITALS (9 sets, daily range): BP systolic 92–146; BP diastolic 58–75; PULSE 63–104; RESP 16–18; TEMP 36.5–36.8; O2SAT 92–97
[2023-07-24 04:30] LABS: Add Urine Culture? Yes; Add Urine Microscopic? YES; Bacteria Urine 3+ /hpf; Bilirubin Urine Neg (Negative); Blood Urine Neg (Negative); Glucose Urine UA Norm (Normal); Ketones Urine Negative (Negative); Leukocyte Esterase Urine 2+ (Negative); Nitrate Urine Positive (Negative); Protein Urine Neg (Negative); RBC Urine 0-4 /hpf (0-2); Specific Gravity, Urine 1.015 (1.005-1.030); Urine Appearance Hazy (CLEAR); Urine Color Yellow (Yellow); Urobilinogen Urine Neg (Negative); WBC Urine 25-40 /hpf (0-5); pH Urine 5 (5-7)
[2023-07-24 05:58] LABS: Basophils % 0.1 %; Eosinophils # 0.1 10^3/uL (0.0-0.8); Eosinophils % 1.6 %; Hematocrit 31.8 % (37-53); Lymphocytes # 2.7 10^3/uL (0.8-4.8); Lymphocytes % 31.1 %; Mean Corpuscular HGB Conc 34.3 g/dL (30-55); Mean Corpuscular Hemoglobin 32.3 pg (27-33); Mean Corpuscular Volume 94.4 fl (82-101); Mean Platelet Volume 10.3 fL (7.4-10.4); Monocytes # 0.6 10^3/uL (0.2-0.9); Neutrophils # 5.02 10^3/uL (1.8-7.7); Neutrophils % 58.9 %; Nucleated Red Blood Cells % 0 %; Platelet Count 156 10^3/cmm (157-399); Red Blood Count 3.37 10^6/uL (3.85-5.65); Red Cell Distribution Width 11.8 % (12.1-15.1); White Blood Count 8.54 10^3/uL (3.29-11.43)
[2023-07-24 06:26] LABS: Blood Urea Nitrogen 62 mg/dL (8-23); Carbon Dioxide 18 mmol/L (22-29); Chloride 111 mmol/L (98-107); Glucose 105 mg/dL (65-115); Magnesium 1.8 mg/dL (1.7-2.3); Osmolality Calculated 302 mOsm/kg (285-295); Phosphorus 3.3 mg/dL (2.5-4.5); Sodium 137 mmol/L (136-145)
[2023-07-24] MEDS: sodium bicarbonate 8.4% 1 mEq/mL 50mL Syr 100 MEQ IVP (06:46)
[2023-07-24] MEDS: sodium chloride 0.9% 1,000 ML 125 ML IV ×2 (06:47→14:20)
--- OUTSIDE RECORDS SUMMARY | 2023-07-24 06:52 | XMS_ITS | Patient Health Record ---
Author Name Unknown Organization [facility] Address [address] [place] [address] Care Team Providers Care Clerical Car Checker Name Role Phone [facility] Renzo PARKER Primary Care Provider Un available Shelley Melvin Unavailable [phone] [place], [place] Unavailable Unavailable José Miguel Momin Unavailable [phone] ALLERGIES Allergen (clinical drug ingredient) Drug/Non Drug Allergy documented on EMR Reaction Allergy Type Onset Date Status Penicillin Unknown Drug Allergy Active RESULTS Component Value Reference Range Notes UA Without Micro-Auto [id number] (Not yet reviewed by provider) Interpretation: Performing Lab: Notes/Report: Color yellow Clarity cloudy Glucose 1+ Bili - Ketones - Sp [place] 1.020 Blood 1+ pH 5.5 Protein trace Urobili - Nitrites - Leukocytes 3+ REASON FOR REFERRAL Reason [facility] Action Reminder S et 12/27/22 Diagnosis 1 Retention of urine ( R33.9) Referring Provider First Name Rosemarie Serranou ff Referring Provider Last Name [place] Referring Provider [facility] Referred Organization [facility] Referred Provider José Miguel Momin Referred Address [address] [facility],[place],[address],[place] Referred Provider Specialty Urology Referral Priority Routine Reason Blood in Stool Violet ointment on 12/14/2022 Referring Provider First Name [place] Travon ff Referring Provider Last Name [place] Referring Provider [facility] Referred Organization [facility] Referred Provider Shelley Melvin Referred Address [address] [place],[address],[place] Referred Provider Specialty Gastroentero logy Referral Priority Routine MEDICATIONS Medication SIG (Take, Route, Frequency, Duration) Notes Start Date End Date Status Nystatin 649987 UNIT/GM 1 application Ex ternally Twice a day Active Victoza 18 MG/3ML as directed Subcutaneous Active HumaLOG KwikPen 100 UNIT/ML as directed Subcutaneous Act halley Tresiba FlexTouch 100 UNIT/ML as directed Subcutaneous Act halely Finasteride 5 MG 1 tablet Orally Once a day Active Calcium Carb-Ergocalciferol Active busPIRone HCl 15 MG 1 tablet Orally Twic e a day Active Atorvastatin Calcium 10 MG 1 tablet Orally Once a day Active Ventolin HFA 108 (90 Base) MCG/ACT 1 puff as needed Inhalation every 4 hrs Active Tamsulosin HCl 0.4 MG 1 capsule Orally O nce a day Active Sertraline HCl 50 MG 1 tablet Orally Once a day Active SOCIAL HISTORY Tobacco Use: Social History Observation Description Date Details (start date - stop date) Former Smoker NA - NA Sex Assigned At : Social History Observation Description Sex Assigned At Unknown Tobacco Use/Smoking Question Answer Notes Are you a former smoker Alcohol Screen (Audit-C) Question Answer Notes Did you have a drink containing alcohol in the p ast year? 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 05192117 VITAL SIGNS Heart Rate 74 /min 02/07/2023 Temperature 96.9 degrees Fahrenheit 02/07/2023 Height-cm 175.26 cm 02/07/2023 Oximetry 94 % 12/14/2022 Blood pressure diastolic 79 mm Hg 02/07/2023 Weight-kg 97.52 kg 02/07/2023 Height 69 in 02/07/2023 Blood pressure systolic 125 mm Hg 02/07/2023 Weight 215 lbs 02/07/2023 BMI 31.75 kg/m2 02/07/2023 Encounters Encounter Location Date Provider Diagnosis [facility] [address] [place] [id number] 10/28/2022 [facility] [address] [place] [address] 11/21/2022 Shelleynorma Melvin [facility] [address] [place] [address], [place] [address] 12/28/2022 [facility] [address] [place] [address] 12/14/2022 Shelley Melvin Fecal occult blood test positive R19.5 [facility] [address] [place] [address] 12/27/2022 José Miguel Momin Renal artery aneurysm I72.2 ; Benign prostatic hyperplasia with lower urinary tract symptoms N40.1 ; Urinary retention R33.9 ; Other obstructive and reflux uropathy N13.8 and Urinary catheter insertion/adjustmen t/removal Z46.6 [facility] [address] [place] [address], [place] [address] 02/07/2023 José Miguel Momin Benign prostatic hyperplasia with lower urinary tract symptoms N40.1 ; Urinary retention R33.9 ; Other obstructive and reflux uropathy N13.8 and Urinary catheter insertion/adjustmen t/removal Z46.6 ASSESSMENTS Encounter Date Diagnosis Assessment Notes Treatment Notes Treatment Clinical Notes 12/14/2022 Fecal occult blood test positive (ICD-10 - R19.5) 12/27/2022 Benign prostatic hyperplasia with lower urinary tract symptoms (ICD-10 - N40.1) 12/27/2022 Renal artery aneurysm (ICD-10 - I72.2) 02/07/2023 Benign prostatic hyperplasia with lower urinary tract symptoms (ICD-10 - N40.1) 02/07/2023 Urinary retention (ICD-10 - R33.9) 12/27/2022 Urinary retention (ICD-10 - R33.9) 02/07/2023 Other obstructive and reflux uropathy (ICD-10 - N13.8) 12/27/2022 Other obstructive and reflux uropathy (ICD-10 - N13.8) 02/07/2023 Urinary catheter insertion/adjustment /removal (ICD-10 - Z46.6) 12/27/2022 Urinary catheter insertion/adjustment /removal (ICD-10 - Z46.6) PLAN OF TREATMENT Pending Test Test Name Order Date UA Without Micro-Auto [id number] 02/07/2023 Insurance Providers Payer Name Payer Address Payer Phone Subscriber Number Group Number Insured Name Patient Relationship to Insured Coverage Start Date Coverage End Date [employer] [address] [place] [phone] [id number] Vik Louis Self - patient is the insured MEDICAL (GENERAL) HISTORY Medical History History ICD Code measles mumps chicken pox pneumonia anemia bladder infections migraine headache diabetes skin cancer hypertension anxiety cataracts copd depression hyperlipidemia liver disease sleep apnea Surgical History Surgery Date(Month/Year) none Hospitalization History Reason Date(Month/Year) none
[2023-07-24 07:06] LABS: Glucose Point of Care 95 mg/dL (70-110)
[2023-07-24] MEDS: calcium carb-vit d 600mg/400unit 1 Tablet 1 EACH PO ×2 (08:11→17:32)
[2023-07-24] MEDS: levothyroxine 50 mcg Tablet PO (08:11)
[2023-07-24] MEDS: aspirin 81 mg EC Tablet PO (08:11)
[2023-07-24] MEDS: finasteride 5 mg Tablet PO (08:12)
[2023-07-24] MEDS: sertraline 50 mg Tablet 25 MG PO (08:12)
[2023-07-24] MEDS: pantoprazole DR 40 mg Tablet PO (08:12)
--- NOTE | 2023-07-24 08:29 | USCV_ITS ---
Vik Bruce Age: 82 Gender: M : 1940 Exam Date: 07/24/2023 09:08 Ordering Phys: Frankie Kennedy MD Technologist: Willard Carter Exam Location: [facility] [place] Indication: ? cva Risk Factors: Previous Vascular Surgery: Right Brachial BP: / Left Brachial BP: / Right Left Velocity (cm/s) Spectral Plaque Velocity (cm/s) Spectral Plaque Syst/Diast Broadening Syst/Diast Broadening 92.60/ 11.55 Prox CCA 78.30 / 15.40 87.10/ 17.60 Mid CCA 103.60/ 6.60 Hetro 98.10/ 17.60 Hetro Distal CCA 97.00 / 13.20 Hetro 93.70/ 11.00 Hetro Prox ICA 130.50/ 18.60 Hetro 81.60/ 17.60 Mid ICA 111.90/ 18.60 87.10/ 18.70 Distal ICA 101.00/ 24.90 120.20 ECA 169.30 0.96 ICA/CCA 1.26 Antegrade Vertebral Antegrade 113.6/ 19.80 cm/s 37.30/ 12.40 cm/s 0 Tri Subclavian Tri 125.7 140.7 0 0 CONCLUSIONS Right ICA stenosis <50%. Mild atheromatous plaque right carotid bulb/ICA. Left ICA stenosis 50-69%. Moderate atheromatous plaque left carotid bulb/ICA. Intimal thickening in the common carotid arteries and internal carotid arteries bilaterally. Normal antegrade Doppler flow noted in the right vertebral artery. Normal antegrade Doppler flow noted in the left vertebral artery. Arpan Montague MD (Electronically Signed) Final Date: 24 July 2023 10:41 S
--- NOTE | 2023-07-24 08:29 | USCV_ITS ---
Vik Bruce Age: 82 Gender: M : 1940 Exam Date: 07/24/2023 08:56 Ordering Phys: Frankie Kennedy MD Technologist: Willard Carter Exam Location: [facility] [place] Indication: ?cva BP: 132 / 73 HR: 86 Rhythm: Sinus Technical Quality: Adequate MEASUREMENTS (Male / Female) Normal Values 2D ECHO LV Diastolic Diameter PLAX 3.1 cm 4.2 - 5.9 / 3.9 - 5.3 cm LV Systolic Diameter PLAX 2.1 cm IVS Diastolic Thickness 1.5 cm 0.6 - 1.0 / 0.6 - 0.9 cm IVS Systolic Thickness 1.7 cm LVPW Diastolic Thickness 1.3 cm 0.6 - 1.0 / 0.6 - 0.9 cm LVPW Systolic Thickness 1.4 cm LVOT Diameter 2.0 cm LV Ejection Fraction 2D Teich 63.2 % LV Ejection Fraction MOD 2C 46.6 % LV Ejection Fraction 2C AL 46.6 % LA Diameter 5.3 cm M-MODE Aortic Annulus Diameter 3.7 cm LA Ao Ratio MM 1.8 DOPPLER LVOT Peak Velocity 121.0 cm/s MV Area PHT 2.9 cm squared Mitral E to A Ratio 0.7 MV E' Velocity 39.0 cm/s Mitral E to MV E' Ratio 10.5 Mitral E to LV E' Lateral Ratio 9.8 Mitral E to LV E' Septal Ratio 11.3 TR Peak Velocity 114.0 cm/s TR Peak Gradient 5.2 mmHg TV Peak E Velocity 127.0 cm/s FINDINGS Left Ventricle Left ventricle is normal in size. LV systolic function is normal with EF of 60 to 65%. No regional wall motion normalities are seen. Grade 1 diastolic dysfunction. Left ventricle hypertrophy seen. Right Ventricle Normal in size and function Right Atrium Normal in size Left Atrium Normal in size Mitral Valve Structurally normal. Mild mitral regurgitation Aortic Valve Grossly normal aortic valve. No stenosis stenosis Tricuspid Valve Trace tricuspid regurgitation. Insufficient TR jet to calculate RVSP Pulmonic Valve Not well visualized Pericardium Small sized pericardial effusion Aorta Normal in size IVC Not well visualized CONCLUSIONS LV systolic function is normal with EF of 60 to 65%. Left ventricle hypertrophy seen. Grade 1 diastolic dysfunction Mild mitral regurgitation Trace tricuspid regurgitation Small sized pericardial effusion Compared to prior echocardiogram from 2021, patient has a small sized pericardial effusion Lyle Godfrey MD (Electronically Signed) Final Date: 24 July 2023 17:11 S
[2023-07-24] MEDS: dextrose 50% syringe 50 mL IVP (08:48)
[2023-07-24] MEDS: insulin regular-human 10 UNIT in SYRINGE 1 EACH IVP (08:49)
--- NOTE | 2023-07-24 09:32 | PC.CHAP ---
Pastoral Care Encounter/Spiritual Assessment Type of Contact [] Declined heel nail rasper visit [] Patient/Family/Request visit [] Outpatient visit [] Follow-up visit [] Physician referral [] Code/Alert [x] Routine visit [] Staff referral [] Actively dying [] Patient sleeping [] Family support [] [] Out of room [] Palliative care [] [] Receiving care in room [] Pre-surgical visit [] Trauma [] Long length of stay [] ICU visit [] Other: Relational/Emotional Strength [x] Patient feels connected with others/family/visitors/staff [] Distress [] Loneliness/isolation [] Abandonment Spirituality of Patient [x] Person of Arin [] Attends Baptism of their Arin [x] Believes in Prayer [] Reads Bible or Tenriism materials [] There are Spiritual issues to be addressed Joint Setter Interventions [x] Prayer [x] Active listening [] Non-anxious presence [x] Spiritual/emotional support [] Crisis/trauma care [] Spiritual counseling [] Bereavement support [] Provided bereavement packet [] Provided Bible/devotional materials [] Provided toy/stuffed animal, coloring book to patient or family member [] Provided Communion [] Anointing/Itmann [] Salvation [x] Completed spiritual assessment [] Other: Impact on Illness or Injury [] Angry [] Fearful [] Anxious [] Often cries [] Exhaustion [] Unable to work [] Unable to attend baptism [] Unable to walk/stand [] Unable to read [] Unable to drive [] Unable to eat/drink [] Unable to sleep [] Unable to be with family [] Patient intubated [] Other: Summary Time spent with patient 5 min
--- NOTE | 2023-07-24 09:35 | PM.CONSULT ---
Providers/Reason For Consult Consulting Physician/Specialty*: kommana/Nephrology Reason for Consult*: CKD, hYPERKALEMIA Attending Physician: Frankie Kennedy MD Primary Care Provider: ANEL Justcie History of Present Illness History of Present Illness Vik Bruce is a 82 year old male Patient is a 82-year-old male with past medical history of hypertension, chronic kidney disease stage III, followed by Dr. Starr as outpatient, COPD, hypothyroidism, diabetes was sent from the primary care doctor's office due to syncopal episode. Also recent lab data was found to have high potassium and was sent to the ER. He denied having any chest pain or shortness of breath or palpitations. BUN was 71 and creatinine was 2.4 and potassium was 6.5 on presentation. Patient received medical management including insulin and dextrose and calcium for hyperkalemia and repeat potassium was 6.0. Also has metabolic acidosis with a bicarbonate of 19. Review of Systems Narrative: Other review of systems negative Medications/Allergies Home Medications Medication Instructions Recorded Confirmed Last Taken Type cpap #1 ea 01/15/20 07/23/23 Unknown Rx diabetic shoes with inserts #1 ea 01/07/21 07/23/23 Unknown Rx pen needle, diabetic 32 gauge x #200 ea 09/20/21 07/23/23 Unknown Rx calcium carbonate 500 mg-vitamin 1 tab PO BID #60 tabs 12/22/21 07/23/23 07/22/23 Rx D3 15 mcg (600 unit) tablet albuterol sulfate 90 mcg/actuation 2 puff inhalation Q6H PRN 03/16/22 07/23/23 07/22/23 Rx aerosol inhaler (Ventolin HFA) shortness of breath or wheezing #8.5 grams atorvastatin 10 mg tablet 10 mg PO BEDTIME 08/29/22 07/23/23 07/22/23 History buspirone 15 mg tablet 15 mg PO DAILY PRN Anxiety 08/29/22 07/23/23 Unknown History sertraline 50 mg tablet 50 mg PO DAILY 08/29/22 07/23/23 07/22/23 History nystatin 100,000 unit/gram topical 1 applic topical BID #30 grams 10/16/22 07/23/23 07/22/23 Rx cream tamsulosin 0.4 mg capsule 0.4 mg PO BID 01/01/23 07/23/23 07/22/23 History semaglutide 0.25 mg or 0.5 mg (2 1 mg SUBCUT .weekly 02/13/23 07/23/23 07/23/23 History mg/3 mL) subcutaneous pen injector (Ozempic) Ankle support evaluation #1 ea 03/06/23 07/23/23 Unknown Rx finasteride 5 mg tablet (Proscar) 5 mg PO DAILY #90 tabs 05/08/23 07/23/23 07/22/23 Rx levothyroxine 50 mcg tablet 50 mcg PO DAILY #90 tabs 05/08/23 07/23/23 07/22/23 Rx sodium chloride 1,000 mg soluble 1,000 mg PO DAILY #30 tabs 05/08/23 07/23/23 07/22/23 Rx tablet aspirin 81 mg tablet,delayed 81 mg PO DAILY 07/23/23 07/23/23 07/22/23 History release Allergies Allergy/AdvReac Type Severity Reaction Status Date / Time Penicillins Allergy Unknown DAVY-Cicill Verified 07/23/23 11:34 Lip/Tongue/Throat Current Medications Generic Name Dose Route Start Last Admin Trade Name Freq PRN Reason Stop Dose Admin Aspirin 81 mg 07/24/23 09:00 07/24/23 08:11 Aspirin 81 Mg Ec Tablet PO 81 mg DAILY LARRY Administration Calcium Carbonate 1 each 07/23/23 18:30 07/24/23 08:11 Calcium Carb-Vit D 600mg/400unit 1 Tablet PO 1 each BID LARRY Administration Finasteride 5 mg 07/24/23 09:00 07/24/23 08:12 Finasteride 5 Mg Tablet PO 5 mg DAILY LARRY Administration Sodium Chloride 1,000 mls @ 125 mls/hr 07/23/23 14:45 07/24/23 06:47 Sodium Chloride 0.9% IV 125 mls/hr .Q8H LARRY Administration Insulin Human Lispro 0 unit 07/23/23 21:00 07/23/23 21:32 Insulin Lispro 100 Unit/1 Ml SUBCUT Not Given BEDTIME LARRY Protocol Insulin Human Lispro 0 unit 07/23/23 18:30 07/24/23 08:12 Insulin Lispro 100 Unit/1 Ml SUBCUT Not Given TIDWM [facility] [place] Protocol Levothyroxine Sodium 50 mcg 07/24/23 09:00 07/24/23 08:11 Levothyroxine 50 Mcg Tablet PO 50 mcg DAILY LARRY Administration Pantoprazole Sodium 40 mg 07/24/23 09:00 07/24/23 08:[address] 40 Mg Tablet PO 40 mg DAILY LARRY Administration Sertraline HCl 25 mg 07/24/23 09:00 07/24/23 08:12 Sertraline 50 Mg Tablet PO 25 mg DAILY LARRY Administration Tamsulosin HCl 0.4 mg 07/23/23 21:00 07/23/23 21:42 Tamsulosin 0.4 Mg Capsule PO 0.4 mg BEDTIME LARRY Administration PFSH Acute PFSH: Medical History (Updated 07/23/23 @ 21:24 by Madelyn Pierce MD) Thyroid nodule incidentally noted on imaging study Hyperlipidemia Prostate enlargement Adult onset hypothyroidism Diabetes mellitus with hyperglycemia, with long-term current use of insulin 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 Obstructive sleep apnea 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 Essential (primary) hypertension Vitamin D insufficiency Anxiety Chronic kidney disease (CKD), stage III (moderate) Surgical History History of cataract surgery Both eyes H/O esophagogastroduodenoscopy 09/02/2019: Mild gastritis History of colonoscopy with polypectomy (~2009) 09/02/2019: 3 mm sessile polyp x2 descending colon Family History Mother Family history non-contributory Father Obesity Denies family history of Anesthesia complication Bleeding disorder Social History (Updated 07/23/23 @ 21:24 by Madelyn Pierce MD) Smoking and tobacco/nicotine status: former use of tobacco/nicotine Quit status (tobacco/nicotine): has quit using Second hand smoke exposure: No Alcohol intake: current Alcohol intake frequency: holidays/special occasions only Alcohol type: beer Substance/Drug Use: never Adopted: No Caregiver/support person: Yes Lives independently: Yes Household members: spouse Housing: House Marital status: Highest education level completed: High School Graduate service: Yes status: Retired branch: [employer] Current occupational status: retired Current occupational exposures/hazards: No Pets and animals: No Sexually active: No Do you think of yourself as: Straight/Heterosexual Current gender identity: Male Arin/Alevism: Gnosticist Special arin needs: No Agree to transfusion: No Vitals/I&O/Wt Last Vital Signs Temp 97.9 F 07/24/23 07:55 Pulse 104 H 07/24/23 07:55 Resp 18 07/24/23 07:55 BP 140/73 07/24/23 07:55 Pulse Ox 92 07/24/23 07:55 O2 Del Method Room Air 07/24/23 07:55 07/23/23 07/24/23 07/24/23 22:59 06:59 14:59 Intake Total 1000.000 / 1000.000 240 / 240 Output Total 100 / 100 150 / 150 Balance 900.000 / 900.000 90 / 90 Weight last 48 hrs Weight 96.417 kg Weight 95.453 kg Weight 93.44 kg Physical Exam Narrative: Awake, alert, no distress Data 07/24/23 05:33 07/24/23 05:33 A&P Assessment and plan (1) Chronic kidney disease (CKD), stage III (moderate): (2) Acute hyperkalemia: Plan 1. Acute on chronic kidney disease stage III: Baseline creatinine in the 1.5 range, now has VISH with a creatinine of 2.3 likely hypovolemic 2. Hyperkalemia: Status post med management, need to be on low potassium diet, await repeat potassium 3. Metabolic acidosis: Mild, will add Bicitra 4. Syncope: Likely orthostatic hypotension,, question vasovagal, no hypotension documented 5. Hypothyroidism 6. Diabetes type 2 Plan: Will give gentle fluids today, monitor potassium closely, hydrate repeat BMP, placed on low potassium diet Consult Attestations Medical Necessity Statement: PER MEDIICNE TEAM Coding Level of Care Code Acute Code for Chg Fwd Diagnoses Chronic kidney disease (CKD), stage III (moderate) N18.3 Acute hyperkalemia E87.5
[2023-07-24] MEDS: citric acid-sodium citrate 30 mL UDC PO (11:02)
[2023-07-24] MEDS: sodium polystyrene sulfonate 15 gm/60 mL Btl 30 GM PO (11:04)
[2023-07-24 11:27] LABS: Glucose Point of Care 79 mg/dL (70-110)
[2023-07-24] MEDS: ciprofloxacin 400 MG/200 ML PREMIX 200 MG IV ×2 (11:37→19:58)
--- NOTE | 2023-07-24 12:37 | PC.NURSE ---
attempted to call Selena patients at this time. She is unable to accept messages will call her later.
[2023-07-24 14:02] LABS: Anion Gap 16.5 (5-19); Blood Urea Nitrogen 56 mg/dL (8-23); Calcium 9.4 mg/dL (8.5-10.5); Carbon Dioxide 20 mmol/L (22-29); Chloride 109 mmol/L (98-107); Glucose 189 mg/dL (65-115); Osmolality Calculated 311 mOsm/kg (285-295); Potassium 5.5 mmol/L (3.5-5.1); Sodium 140 mmol/L (136-145)
--- NOTE | 2023-07-24 14:34 | P.PN_ITS ---
Subjective 2 Subjective: Patient was seen this morning, he was sitting up to the side of the bed, does report lightheadedness at times, no fevers, no chills, no cough, he was seen by physical therapy, found to be orthostatic positive, Vitals/I&O/Wt Last Vital Signs Temp 98.2 F 07/24/23 11:35 Pulse 77 07/24/23 11:35 Resp 18 07/24/23 11:35 BP 92/60 07/24/23 11:35 Pulse Ox 95 07/24/23 11:35 O2 Del Method Room Air 07/24/23 11:35 07/23/23 07/24/23 07/24/23 22:59 06:59 14:59 Intake Total 1000.000 / 4346.290 1023.85 / 1503.85 Output Total 100 / 100 150 / 150 Balance 900.000 / 992.774 4478.85 / 1353.85 Weight last 48 hrs Weight 96.417 kg Weight 95.453 kg Weight 93.44 kg Physical Exam 2 Const: COMMON NORMALS: no acute distress and patient oriented x3 Resp: COMMON NORMALS: normal respiratory effort, No retractions, No use of accessory muscles and clear to auscultation bilaterally AUSCULTATION: clear to auscultation bilaterally Cardio: COMMON NORMALS: regular rate, regular rhythm, S1 normal heart sound present and S2 normal heart sound present RATE: regular rate RHYTHM: r egular rhythm HEART SOUNDS: S1 normal heart sound present and S2 normal heart sound present GI: COMMON NORMALS: Normal to inspection, nondistended, normoactive bowel sounds present and non-tender Extremity: COMMON NORMALS: no pedal edema Neuro: COMMON NORMALS: patient oriented x3 Psych: COMMON NORMALS: mental status grossly normal Data 07/24/23 05:33 07/24/23 13:27 A&P Assessment and plan (1) Acute hyperkalemia: -Persistent hyperkalemia this morning 6.0, ? Will give 1 dose of D50, insulin, Kayexalate given by renal ?repeat BMP this afternoon (2) Bradycardia: Intermittent. May be secondary to hyperkalemia or other etiology. Not on medications that I would expect to cause bradycardia from available list. -Continue telemetry monitoring (3) Acute kidney injury: - Creatinine 2.2 (4) Syncope: -Likely orthostatic hypotension -Patient remains orthostatic positive -Check orthostatic vitals every 12 hours, ? Continue IV fluids, ? Cardiac echo ? Carotid artery ultrasound -Some component related to UTI (5) Concussion: Clinical diagnosis from hitting his head leading to loss of consciousness and an episode of vomiting both in the field and here in the emergency room. CT of his head was unremarkable. Qualifiers: Encounter type: initial encounter Loss of consciousness presence/duration: with LOC of 30 min or less Qualified Code(s): S06.0X1A - Concussion with loss of consciousness of 30 minutes or less, initial encounter (6) Bilateral leg weakness: Both ankles and some possible proximal muscle weakness given degree of muscle wasting though may be secondary to inactivity. Has a walker and a scooter but was not using either of them today. (7) Type 2 diabetes mellitus with stage 3b chronic kidney disease, without long- term current use of insulin: Chronically on semaglutide (8) Hyperlipidemia: Type unknown, chronically on atorvastatin (9) Adult onset hypothyroidism: Chronically on levothyroxine, current TSH is elevated at 6.66 (10) Thyroid nodule incidentally noted on imaging study: 11 mm nodule noted in the left thyroid lobe posteriorly on CT imaging of the neck today (11) COPD (chronic obstructive pulmonary disease) with emphysema: Not currently acute, chronically has albuterol as needed (12) Prostate enlargement: Chronically on Flomax and finasteride at bedtime (13) Anxiety: Clinical on as needed BuSpar and sertraline (14) Obstructive sleep apnea syndrome: (15) Orthostatic hypotension: - Continue IV fluids ? Continue orthostatics every 12 hours (16) UTI (urinary tract infection): Continue Rocephin Plan Report of neck pain upon extended standing with CT of the neck showing severe chronic cervical spondylosis and associated spinal stenosis Inpatient admission Nephrology consultation, I discussed with them Serial neuroexams Antiemetics if needed PT evaluation in the morning Continue home statin therapy Outpatient follow-up for thyroid nodule can be considered if deemed appropriate/necessary by primary care provider/patient Breathing treatments if needed I will decrease home finasteride to nighttime dosing only, holding the morning dose given syncope, continue finasteride Decrease sertraline to 25 mg currently, BuSpar is only as needed at home VTE prophylaxis: SCDs currently. Have not yet initiated pharmacological DVT prophylaxis as cannot currently rule out emergent need for hemodialysis line placement in the next 24 hours. Will reevaluate in the morning. GI Prophylaxis: PPI ordered for inpatient, not on chronically Telemetry: Ordered due to bradycardia and hyperkalemia Yeung: Not presently indicated but the patient does not have urine output soon plan to do straight cath/potential Yeung if difficulty urinating or if noted to have elevated bladder volume on bladder scan Line(s): peripheral IVs presently Disposition plan: Home with outpatient follow up not only to primary care provider but will also need to get set back up with nephrology. Had previously been seeing Dr. Shepherd. Anticipate he will need laboratory study with initial follow-up and may have some adjustments to medications. Code Status: Full Code Supportive care otherwise Findings, concerns and plans were discussed with patient and he was given an opportunity to ask questions Attestations 2 Medical Necessity Statement*: Patient requires hospitalization for syncope, orthostatic hypotension, UTI, VISH, hyperkalemia, inpatient, greater than 2 midnights Diagnoses Acute hyperkalemia E87.5 Bradycardia R00.1 Acute kidney injury N17.9 Syncope R55 Concussion with loss of consciousness of 30 minutes or less, initial encounter S06.0X1A Encounter type: initial encounter Loss of consciousness presence/duration: with LOC of 30 min or less Bilateral leg weakness R29.898 Type 2 diabetes mellitus with stage 3b chronic kidney disease, without long-term current use of insulin E11.22; N18.32 Hyperlipidemia E78.5 Adult onset hypothyroidism E03.8 Thyroid nodule incidentally noted on imaging study E04.1 COPD (chronic obstructive pulmonary disease) with emphysema J43.9 Prostate enlargement N40.0 Anxiety F41.9 Obstructive sleep apnea syndrome G47.33 Orthostatic hypotension I95.1 UTI (urinary tract infection) N39.0
--- NOTE | 2023-07-24 15:40 | PC.NURSE ---
Patient is refusing to wear his telemetry stating that the box is to heavy when he has to go to the bathroom.
[2023-07-24 16:36] LABS: Glucose Point of Care 173 mg/dL (70-110)
[2023-07-24 16:45] LABS: Lipase 81 U/L (13-60)
[2023-07-24] MEDS: heparin 5,000 unit/mL INJ 1 mL 5000 UNIT SUBCUT (17:32)
[2023-07-24] MEDS: tamsulosin 0.4 mg Capsule PO (19:59)
[2023-07-24] MEDS: atorvastatin 40 mg Tablet PO (20:00)
[2023-07-24 21:22] LABS: Glucose Point of Care 206 mg/dL (70-110)
[2023-07-24] MEDS: insulin lispro 100 unit/1 mL SUBCUT (21:59)
[2023-07-25] VITALS (13 sets, daily range): BP systolic 91–147; BP diastolic 44–83; PULSE 56–88; RESP 16–18; TEMP 36.6–37.2; O2SAT 93–97
[2023-07-25] MEDS: sodium chloride 0.9% 1,000 ML 100 ML IV (01:10)
[2023-07-25] MEDS: heparin 5,000 unit/mL INJ 1 mL 5000 UNIT SUBCUT ×2 (02:05→14:32)
[2023-07-25 05:10] LABS: Basophils % 0.2 %; Eosinophils # 0.1 10^3/uL (0.0-0.8); Eosinophils % 1.5 %; Hematocrit 29.5 % (37-53); Lymphocytes # 1.9 10^3/uL (0.8-4.8); Lymphocytes % 31.2 %; Mean Corpuscular HGB Conc 33.6 g/dL (30-55); Mean Corpuscular Hemoglobin 32.2 pg (27-33); Mean Corpuscular Volume 96.1 fl (82-101); Mean Platelet Volume 10.4 fL (7.4-10.4); Monocytes # 0.6 10^3/uL (0.2-0.9); Monocytes % 10.1 %; Neutrophils # 3.25 10^3/uL (1.8-7.7); Nucleated Red Blood Cells % 0 %; Platelet Count 127 10^3/cmm (157-399); Red Blood Count 3.07 10^6/uL (3.85-5.65); Red Cell Distribution Width 11.9 % (12.1-15.1); White Blood Count 6.02 10^3/uL (3.29-11.43)
[2023-07-25 05:31] LABS: Anion Gap 11.9 (5-19); Blood Urea Nitrogen 44 mg/dL (8-23); Carbon Dioxide 22 mmol/L (22-29); Chloride 112 mmol/L (98-107); Glucose 121 mg/dL (65-115); Osmolality Calculated 304 mOsm/kg (285-295); Potassium 4.9 mmol/L (3.5-5.1); Sodium 141 mmol/L (136-145)
[2023-07-25 05:36] LABS: Magnesium 1.4 mg/dL (1.7-2.3); Phosphorus 2.9 mg/dL (2.5-4.5)
[2023-07-25 06:45] LABS: Glucose Point of Care 122 mg/dL (70-110)
[2023-07-25] MEDS: ciprofloxacin 400 MG/200 ML PREMIX 200 MG IV (09:56)
[2023-07-25] MEDS: pantoprazole DR 40 mg Tablet PO (09:58)
[2023-07-25] MEDS: sertraline 50 mg Tablet 25 MG PO (09:58)
[2023-07-25] MEDS: finasteride 5 mg Tablet PO (09:58)
[2023-07-25] MEDS: levothyroxine 50 mcg Tablet PO (09:58)
[2023-07-25] MEDS: calcium carb-vit d 600mg/400unit 1 Tablet 1 EACH PO ×2 (09:58→17:20)
[2023-07-25] MEDS: aspirin 81 mg EC Tablet PO (09:58)
[2023-07-25 10:26] LABS: Glucose Point of Care 203 mg/dL (70-110)
--- NOTE | 2023-07-25 10:49 | PM.DCS ---
Discharge Providers Date of Admission: 07/23/23 21:25 Date of Discharge: July 25, 2023 Attending Provider at Admission: Madelyn Pierce MD Attending Provider at Discharge: Frankie Kennedy MD Primary Care Provider: ANEL Justice Diagnoses at Discharge Discharge Diagnosis (1) Acute hyperkalemia: Status: Acute (2) Bradycardia: Status: Acute (3) Acute kidney injury: Status: Acute (4) Syncope: Status: Acute (5) Concussion: Status: Acute Qualifiers: Encounter type: initial encounter Loss of consciousness presence/duration: with LOC of 30 min or less Qualified Code(s): S06.0X1A - Concussion with loss of consciousness of 30 minutes or less, initial encounter (6) Bilateral leg weakness: Status: Acute (7) Type 2 diabetes mellitus with stage 3b chronic kidney disease, without long-term current use of insulin: Status: Chronic (8) Hyperlipidemia: Status: Chronic (9) Adult onset hypothyroidism: Status: Chronic (10) Thyroid nodule incidentally noted on imaging study: Status: Chronic (11) COPD (chronic obstructive pulmonary disease) with emphysema: Status: Chronic (12) Prostate enlargement: Status: Chronic (13) Anxiety: Status: Chronic (14) Obstructive sleep apnea syndrome: Status: Chronic (15) Orthostatic hypotension: Status: Acute (16) UTI (urinary tract infection): Status: Acute Reason for Visit Reason for Visit: weakness, fall Hospital Course Hospital Course lamont Bruce is a 82 year old male who presents with a chief complaint of syncopal episode at primary care provider's office and was found to have high potassium and elevated BUN and creatinine in the ER. From his recollection, he passed out as he was walking into the clinic for his regular lab draw appointment. He had just gotten out of his car when it happened and was not using a walker as he is prescribed. He did not feel dizzy, noticed any vision changes, chest pain, palpitations, nausea or other preceding symptoms. From his perspective his legs and ankles gave out like they have before causing him to go down. He denies it but staff at the facility reported that he hit his head and lost consciousness for a brief period of time. He says he was near a wall when he went down. Currently denies any headache. He did have an episode of vomiting at the clinic as well as an episode of vomiting here. Denies any focal weakness. Has not had any recent changes in medications. No recent fevers. He has not had any vomiting preceding the 2 episodes of vomiting today. No changes in urine output. He has had some loose stools but denies significant increase in volume of stool output. He has had a little bit of a cough and runny nose. EMS was called to the clinic. They reported the patient's blood pressure was low when they got there. Mr. Bruce received some IV fluids in route and once here vitals were stable. He does have a history of chronic kidney disease and previously saw Dr. Shepherd but has not been seen by nephrology since Dr. Shepherd retired. Earlier this year BUN and creatinine were 26/1.5. Today 71/2.4. Given hyperkalemia and what appears to be acute kidney injury patient is being admitted for further evaluation and treatment. He has received additional fluids as well as insulin and D50, calcium gluconate and albuterol. Repeat potassium was 6.5. Patient was admitted to [facility] for acute hyperkalemia, VISH, received nephrology consult, insulin, Kayexalate, IV fluids, overall clinically improved, creatinine on discharge is 1.9, potassium is 4.9 discharged with instructions to drink plenty of electrolyte balanced fluids, avoid NSAIDs, follow-up with primary care provider for recheck blood pressures, Patient was found to have syncope likely secondary to orthostatic hypotension during his hospitalization his systolic blood pressure dropped more than 20 points while standing up and he was symptomatic for as he said he was feeling weak in the knees never lightheaded or dizzy, carotid artery ultrasound within normal limits, cardiac echo within normal limits, no significant telemetry events, he was hydrated during his hospitalization, overall his orthostatic hypotension has improved he is relatively asymptomatic his systolic blood pressure is on discharge did drop about 15-18 points when standing up but he was asymptomatic. I have advised him to drink plenty of electrolyte balanced fluids when he goes home ambulate with care, discussed morbidity and mortality associated with syncope and falls, transfer with care, follow-up with primary care provider for repeat orthostats as outpatient Patient did hit his head during syncopal episode, CT head within normal limits, follow-up with primary care for possible concussion like symptoms He was found to have a millimeter nodule in the left thyroid lobe posteriorly, follow-up with ENT He was also found to have UTI, managed with ciprofloxacin, discharged with ciprofloxacin so far urine culture showing gram-negative rods He does report neck pain, CT of the neck does show 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, follow-up with primary care provider as outpatient Physical Exam Const: COMMON NORMALS: no acute distress and patient oriented x3 Resp: COMMON NORMALS: normal respiratory effort, No retractions, No use of accessory muscles and clear to auscultation bilaterally AUSCULTATION: clear to auscultation bilaterally Cardio: COMMON NORMALS: regular rate, regular rhythm, S1 normal heart sound present and S2 normal heart sound present RATE: regular rate RHYTHM: regular rhythm HEART SOUNDS: S1 normal heart sound present and S2 normal heart sound present GI: COMMON NORMALS: Normal to inspection, nondistended, normoactive bowel sounds present and non-tender Extremity: COMMON NORMALS: no pedal edema Neuro: COMMON NORMALS: patient oriented x3 Psych: COMMON NORMALS: mental status grossly normal Discharge Data Studies Completed and Pending Completed Studies During Hospitalization Category Date Time Status CT cervical spin wo con* [id number] Urgent Cat Scan 07/23/23 11:[address] head wo con* [id number] Urgent Cat Scan 07/23/23 11:44 Completed XR chest 1V portable [id number] Stat Exams 07/23/23 10:59 Completed CV carotid duplex BI* [id number] Routine Ultrasound 07/24/23 08:29 Completed CV. echo complete* [id number] Routine Ultrasound 07/24/23 08:29 Completed Pending at discharge Category Date Time Status Basic Metabolic Panel AM LABS Lab 07/26/23 04:00 Ordered Complete Blood Count w/Auto AM LABS Lab 07/26/23 04:00 Ordered Complete Blood Count w/Auto AM LABS Lab 07/27/23 04:00 Ordered Magnesium AM LABS Lab 07/26/23 04:00 Ordered Magnesium AM LABS Lab 07/27/23 04:00 Ordered Phosphorus AM LABS Lab 07/26/23 04:00 Ordered Phosphorus AM LABS Lab 07/27/23 04:00 Ordered Urine Culture Routine Lab 07/24/23 04:15 Results Radiology Impressions Chest X-Ray 07/23/23 10:59 IMPRESSION: No acute cardiopulmonary abnormality detected on AP portable chest radiograph. Cervical Spine CT 07/23/23 11:44 IMPRESSION: 1. No acute cervical spine fracture detected. 2. Severe chronic cervical spondylosis and associated spinal stenosis. COMMENTS: Consistent with the [place] [employer]'s Incidental Findings Committee white paper (J Am Drew Radiol 2015): In patients aged 35 years and older with an incidental thyroid nodule equal to or greater than 1.[address], MRI or extrathyroidal US, further evaluation with dedicated thyroid US is recommended for patients with normal life expectancy and without comorbidities. For smaller nodules without suspicious features, no further evaluation or follow up is recommended. Head CT 07/23/23 11:44 IMPRESSION: No acute intracranial hemorrhage or mass effect. Laboratory Results WBC 6.02 10^3/uL (3.29-11.43) 07/25/23 04:47 RBC 3.07 10^6/uL (3.85-5.65) L 07/25/23 04:47 Hgb 9.90 g/dL (11.27-16.99) L 07/25/23 04:47 Hct 29.5 % (37-53) L 07/25/23 04:47 MCV 96.1 fl (82-101) 07/25/23 04:47 MCH 32.2 pg (27-33) 07/25/23 04:47 MCHC 33.6 g/dL (30-55) 07/25/23 04:47 RDW 11.9 % (12.1-15.1) L 07/25/23 04:47 Plt Count 127 10^3/cmm (157-399) L 07/25/23 04:47 MPV 10.4 fL (7.4-10.4) 07/25/23 04:47 Neut % (Auto) 54.0 % 07/25/23 04:47 Lymph % (Auto) 31.2 % 07/25/23 04:47 [place] % (Auto) 10.1 % 07/25/23 04:47 Eos % (Auto) 1.5 % 07/25/23 04:47 Baso % (Auto) 0.2 % 07/25/23 04:47 Neut # (Auto) 3.25 10^3/uL (1.8-7.7) 07/25/23 04:47 Lymph # (Auto) 1.9 10^3/uL (0.8-4.8) 07/25/23 04:47 [place] # (Auto) 0.6 10^3/uL (0.2-0.9) 07/25/23 04:47 Eos # (Auto) 0.1 10^3/uL (0.0-0.8) 07/25/23 04:47 Baso # (Auto) 0.0 10^3/uL (0.0-0.1) 07/25/23 04:47 Nucleated RBC % (auto) 0 % 07/25/23 04:47 Nucleated RBCs # 0.0 /100WBC 07/25/23 04:47 Sodium 141 mmol/L (136-145) 07/25/23 04:47 Potassium 4.9 mmol/L (3.5-5.1) 07/25/23 04:47 Chloride 112 mmol/L (98-107) H 07/25/23 04:47 Carbon Dioxide 22 mmol/L (22-29) 07/25/23 04:47 Anion Gap 11.9 (5-19) 07/25/23 04:47 BUN 44 mg/dL (8-23) H 07/25/23 04:47 Creatinine 1.9 mg/dL (0.7-1.2) H 07/25/23 04:47 GFR Calculation Not Reportable 07/25/23 04:47 Glucose 121 mg/dL (65-115) H 07/25/23 04:47 POC Glucose 203 mg/dL (70-110) H 07/25/23 10:24 Calculated Osmolality 304 mOsm/kg (285-295) H 07/25/23 04:47 Calcium 9.0 mg/dL (8.5-10.5) 07/25/23 04:47 Phosphorus 2.9 mg/dL (2.5-4.5) 07/25/23 04:47 Magnesium 1.4 mg/dL (1.7-2.3) L 07/25/23 04:47 Total Bilirubin 0.3 mg/dL (0.15-1.2) 07/23/23 12:11 AST 27 U/L (0-40) 07/23/23 12:11 ALT 40 U/L (0-41) 07/23/23 12:11 Alkaline Phosphatase 74 U/L (40-130) 07/23/23 12:11 Creatine Kinase 104 U/L (39-308) 07/23/23 15:20 Troponin T Baseline 42 ng/L (0-15) H 07/23/23 12:11 Troponin T 120 Minute 38.54 ng/L (0-15) H 07/23/23 14:15 Delta Troponin T -3.46 ABS# (0-10) L 07/23/23 14:15 Troponin T Hi Sens 6Hr 42.12 ng/L (0-15) H 07/23/23 18:53 Troponin T Hi Sens 6Hr Delta 0.12 ng/L (0-12) 07/23/23 18:53 Total Protein 6.6 g/dL (6.6-8.7) 07/23/23 12:11 Albumin 4.0 g/dL (3.5-5.2) 07/23/23 12:11 Globulin 2.6 g/dL (1.3-4.6) 07/23/23 12:11 Lipase 81 U/L (13-60) H 07/24/23 15:55 TSH 6.66 uIU/mL (0.27-4.20) H 07/23/23 12:11 Free T4 1.03 ng/dL (0.82-1.77) 07/23/23 21:25 Free T3 2.2 PG/ML (2.0-4.4) 07/23/23 21:25 Urine Color Yellow (Yellow) 07/24/23 04:15 Urine Appearance Hazy (CLEAR) A 07/24/23 04:15 Urine pH 5 (5-7) 07/24/23 04:15 Ur Specific [place] 1.015 (1.005-1.030) 07/24/23 04:15 Urine Protein Neg (Negative) 07/24/23 04:15 Urine Glucose (UA) Norm (Normal) 07/24/23 04:15 Urine Ketones Negative (Negative) 07/24/23 04:15 Urine Blood Neg (Negative) 07/24/23 04:15 Urine Nitrate Positive (Negative) H 07/24/23 04:15 Urine Bilirubin Neg (Negative) 07/24/23 04:15 Urine Urobilinogen Neg mg/dL (Negative) 07/24/23 04:15 Ur Leukocyte Esterase 2+ (Negative) H 07/24/23 04:15 Urine RBC 0-4 /hpf (0-2) H 07/24/23 04:15 Urine WBC 25-40 /hpf (0-5) H 07/24/23 04:15 Ur Squamous Epith Cells None /hpf (0-5) 07/24/23 04:15 Amorphous Sediment Not Reportable 07/24/23 04:15 Urine Bacteria 3+ /hpf (NONE) H 07/24/23 04:15 Vitals Last Vital Signs Temp 97.9 F 07/25/23 07:53 Pulse 58 L 07/25/23 10:24 Resp 16 07/25/23 10:24 BP 134/69 07/25/23 07:53 Pulse Ox 96 07/25/23 10:24 O2 Del Method Room Air 07/25/23 10:24 Discharge Plan Discharge Patient Disposition: Home Condition: Stable Prescriptions: New ciprofloxacin HCl 500 mg Tablet 500 mg PO BID@0900,2100 5 Days Qty: 10 0RF magnesium L-lactate [Magtab] 84 mg Tablet Extended Release 84 mg PO BID 7 Days Qty: 14 0RF Continued (DME) pen needle, diabetic 32 gauge x 5/32 needle See Rx Instructions .ROUTE .MEDSUPPLY Qty: 200 5RF Rx Instructions: 5 daily calcium carbonate-vitamin D3 500 mg-15 mcg (600 unit) tablet 1 tab PO BID Qty: 60 2RF (DME) cpap See Rx Instructions .Route .MEDSUPPLY Qty: 1 0RF Rx Instructions: As directed 99 months, npi [id number] use cpap nightly and needs all supplys (DME) diabetic shoes with inserts See Rx Instructions .Route .MEDSUPPLY Qty: 1 0RF Rx Instructions: As directed albuterol sulfate [Ventolin HFA] 90 mcg/actuation HFA aerosol inhaler 2 puff inhalation Q6H PRN (Reason: shortness of breath or wheezing) Qty: 8.5 0RF Ozempic 0.25 mg or 0.5 mg (2 mg/3 mL) pen injector 1 mg SUBCUT .weekly Rx Instructions: on sunday sodium chloride 1,000 mg tablet,soluble 1,000 mg PO DAILY Qty: 30 2RF levothyroxine 50 mcg tablet 50 mcg PO DAILY Qty: 90 0RF finasteride [Proscar] 5 mg tablet 5 mg PO DAILY Qty: 90 0RF sertraline 50 mg tablet 50 mg PO DAILY buspirone 15 mg tablet 15 mg PO DAILY PRN (Reason: Anxiety) atorvastatin 10 mg tablet 10 mg PO BEDTIME tamsulosin 0.4 mg capsule 0.4 mg PO BID Hold Instructions: Resume on 05/09/22. (DME) Ankle support evaluation See Rx Instructions .Route .MEDSUPPLY Qty: 1 0RF Rx Instructions: evaluation bilateral ankle for support products. aspirin 81 mg tablet,delayed release (DR/EC) 81 mg PO DAILY nystatin 100,000 unit/gram cream 1 applic topical BID Qty: 30 0RF Discharge Orders: Discharge Order (Routine); Ordered 07/25/23 Ordered By: Frankie Kennedy Referrals: Jameson Beal, [facility] [Primary Care Provider] - 1-3 days Diego Walker MD [Physician] - 1 month (thyroid nodule) Discharge Diet: Cardiac Discharge Activity: Resume usual activity Patient Instructions: Ciprofloxacin (By mouth), Magnesium (By mouth), Hypotension (GEN), Opioid Safety Activity Restrictions/Additional Instructions: - Please monitor blood pressure closely, please hydrate well drink plenty of electrolyte balanced fluids 1 to 2 L, avoid NSAIDs, ? Please ambulate with care, transfer with care, as you have increased risk of falls and morbidity and mortality associated Discharge Attestations Time Spent in Discharge Care*: greater than 30 min Status at Discharge: Cognitive status at discharge: cognitively intact, Behavioral status at discharge: cooperative, Quality Metrics Clinical Quality Measures [ No reported AMI, CVA or VTE this stay] Coding Level of Care Code 47466 Total time (in minutes) for Discharge: 45 Diagnoses Acute hyperkalemia E87.5 Bradycardia R00.1 Acute kidney injury N17.9 Syncope R55 Concussion with loss of consciousness of 30 minutes or less, initial encounter S06.0X1A Encounter type: initial encounter Loss of consciousness presence/duration: with LOC of 30 min or less Bilateral leg weakness R29.898 Type 2 diabetes mellitus with stage 3b chronic kidney disease, without long-term current use of insulin E11.22; N18.32 Hyperlipidemia E78.5 Adult onset hypothyroidism E03.8 Thyroid nodule incidentally noted on imaging study E04.1 COPD (chronic obstructive pulmonary disease) with emphysema J43.9 Prostate enlargement N40.0 Anxiety F41.9 Obstructive sleep apnea syndrome G47.33 Orthostatic hypotension I95.1 UTI (urinary tract infection) N39.0
[2023-07-25] MEDS: ciprofloxacin 500 mg Tablet PO ×2 (11:15→20:31)
[2023-07-25] MEDS: magnesium lactate 84 mg Tablet PO ×2 (11:15→17:20)
[2023-07-25] MEDS: insulin lispro 100 unit/1 mL SUBCUT ×3 (11:15→22:19)
--- NOTE | 2023-07-25 11:46 | PC.SOCIAL ---
Pg 2 IMM Explained to pt Pg 2 IMM. No questions voiced. Provided pt a copy. Initialed, dated, & timed a copy & placed in chart.
[2023-07-25] MEDS: sodium chloride 0.9% 1,000 ML 125 ML IV (11:49)
--- NOTE | 2023-07-25 13:31 | P.PN_ITS ---
Subjective 2 Subjective: Patient was seen this morning, denies any fevers, chills, he tells me that when he does stand up he feels weak in his knees, he continues to be orthostatic positive this morning, his systolic blood pressures drop about 18 points, we have planned on potentially discharging him, but repeat orthostats still show that his systolic blood pressure dropped more than 20 points he feels weak in his knees, we discussed potentially monitoring him for the next 24 hours possibly discharging him later on today depending on how he does with further fluid therapy, he is agreeable Vitals/I&O/Wt Last Vital Signs Temp 97.9 F 07/25/23 07:53 Pulse 65 07/25/23 11:31 Resp 17 07/25/23 11:31 BP 120/59 07/25/23 11:31 Pulse Ox 93 07/25/23 11:31 O2 Del Method Room Air 07/25/23 11:31 07/24/23 07/25/23 07/25/23 22:59 06:59 14:59 Intake Total 902.917 / 2458.850 485 / 2943.850 390 / 390 Output Total 150 / 300 Balance 752.917 / 2158.850 485 / 2643.850 390 / 390 Weight last 48 hrs Weight 96.388 kg Weight 96.417 kg Weight 95.453 kg Physical Exam 2 Const: COMMON NORMALS: no acute distress and patient oriented x3 Resp: COMMON NORMALS: normal respiratory effort, No retractions, No use of accessory muscles and clear to auscultation bilaterally AUSCULTATION: clear to auscultation bilaterally Cardio: COMMON NORMALS: regular rate, regular rhythm, S1 normal heart sound present and S2 normal heart sound present RATE: regular rate RHYTHM: r egular rhythm HEART SOUNDS: S1 normal heart sound present and S2 normal heart sound present GI: COMMON NORMALS: Normal to inspection, nondistended, normoactive bowel sounds present and non-tender Extremity: COMMON NORMALS: no pedal edema Neuro: COMMON NORMALS: patient oriented x3 Psych: COMMON NORMALS: mental status grossly normal Data 07/25/23 04:47 07/25/23 04:47 Micro: Microbiology 07/24/23 04:15 Urine Culture - Preliminary Urine,Clean Catch Gram Negative Rods A&P Assessment and plan (1) Acute hyperkalemia: Resolved (2) Bradycardia: Intermittent. May be secondary to hyperkalemia or other etiology. Not on medications that I would expect to cause bradycardia from available list. -Continue telemetry monitoring (3) Acute kidney injury: - Creatinine 1.9 (4) Syncope: -Likely orthostatic hypotension -Patient remains orthostatic positive -Check orthostatic vitals every 12 hours, ? Continue IV fluids, ? Cardiac echo within normal limits ? Carotid artery ultrasound within normal limits -Some component related to UTI (5) Concussion: Clinical diagnosis from hitting his head leading to loss of consciousness and an episode of vomiting both in the field and here in the emergency room. CT of his head was unremarkable. Qualifiers: Encounter type: initial encounter Loss of consciousness presence/duration: with LOC of 30 min or less Qualified Code(s): S06.0X1A - Concussion with loss of consciousness of 30 minutes or less, initial encounter (6) Bilateral leg weakness: Both ankles and some possible proximal muscle weakness given degree of muscle wasting though may be secondary to inactivity. Has a walker and a scooter but was not using either of them today. (7) Type 2 diabetes mellitus with stage 3b chronic kidney disease, without long- term current use of insulin: Chronically on semaglutide (8) Hyperlipidemia: Type unknown, chronically on atorvastatin (9) Adult onset hypothyroidism: Chronically on levothyroxine, current TSH is elevated at 6.66 (10) Thyroid nodule incidentally noted on imaging study: 11 mm nodule noted in the left thyroid lobe posteriorly on CT imaging of the neck today (11) COPD (chronic obstructive pulmonary disease) with emphysema: Not currently acute, chronically has albuterol as needed (12) Prostate enlargement: Chronically on Flomax and finasteride at bedtime (13) Anxiety: Clinical on as needed BuSpar and sertraline (14) Obstructive sleep apnea syndrome: (15) Orthostatic hypotension: - Continue IV fluids ? Continue orthostatics every 12 hours (16) UTI (urinary tract infection): Continue Rocephin Plan Report of neck pain upon extended standing with CT of the neck showing severe chronic cervical spondylosis and associated spinal stenosis Inpatient admission Nephrology consultation, I discussed with them Serial neuroexams Antiemetics if needed PT evaluation in the morning Continue home statin therapy Outpatient follow-up for thyroid nodule can be considered if deemed appropriate/necessary by primary care provider/patient Breathing treatments if needed I will decrease home finasteride to nighttime dosing only, holding the morning dose given syncope, continue finasteride Decrease sertraline to 25 mg currently, BuSpar is only as needed at home VTE prophylaxis: SCDs currently. Have not yet initiated pharmacological DVT prophylaxis as cannot currently rule out emergent need for hemodialysis line placement in the next 24 hours. Will reevaluate in the morning. GI Prophylaxis: PPI ordered for inpatient, not on chronically Telemetry: Ordered due to bradycardia and hyperkalemia Yeung: Not presently indicated but the patient does not have urine output soon plan to do straight cath/potential Yeung if difficulty urinating or if noted to have elevated bladder volume on bladder scan Line(s): peripheral IVs presently Disposition plan: Home with outpatient follow up not only to primary care provider but will also need to get set back up with nephrology. Had previously been seeing Dr. Shepherd. Anticipate he will need laboratory study with initial follow-up and may have some adjustments to medications. Code Status: Full Code Supportive care otherwise Findings, concerns and plans were discussed with patient and he was given an opportunity to ask questions Attestations 2 Medical Necessity Statement*: Patient requires hospitalization for persistent orthostatic hypotension, despite fluid therapy, pending further fluid therapy and inpatient monitoring Diagnoses Acute hyperkalemia E87.5 Bradycardia R00.1 Acute kidney injury N17.9 Syncope R55 Concussion with loss of consciousness of 30 minutes or less, initial encounter S06.0X1A Encounter type: initial encounter Loss of consciousness presence/duration: with LOC of 30 min or less Bilateral leg weakness R29.898 Type 2 diabetes mellitus with stage 3b chronic kidney disease, without long-term current use of insulin E11.22; N18.32 Hyperlipidemia E78.5 Adult onset hypothyroidism E03.8 Thyroid nodule incidentally noted on imaging study E04.1 COPD (chronic obstructive pulmonary disease) with emphysema J43.9 Prostate enlargement N40.0 Anxiety F41.9 Obstructive sleep apnea syndrome G47.33 Orthostatic hypotension I95.1 UTI (urinary tract infection) N39.0
--- NOTE | 2023-07-25 15:50 | P.PN_ITS ---
Subjective 2 Subjective: doing well Medications: Reviewed: Yes Vitals/I&O/Wt Last Vital Signs Temp 97.9 F 07/25/23 07:53 Pulse 65 07/25/23 11:31 Resp 17 07/25/23 11:31 BP 120/59 07/25/23 11:31 Pulse Ox 93 07/25/23 11:31 O2 Del Method Room Air 07/25/23 11:31 07/25/23 07/25/23 07/25/23 06:59 14:59 22:59 Intake Total 485 / 2943.850 390 / 390 Balance 485 / 2643.850 390 / 390 Weight last 48 hrs Weight 96.388 kg Weight 96.417 kg Weight 95.453 kg Physical Exam 2 Narrative: Awake, alert, no distress Data 07/25/23 04:47 07/25/23 04:47 Micro: Microbiology 07/24/23 04:15 Urine Culture - Preliminary Urine,Clean Catch Gram Negative Rods A&P Assessment and plan (1) Chronic kidney disease (CKD), stage III (moderate): (2) Acute hyperkalemia: Plan 1. Acute on chronic kidney disease stage III: Baseline creatinine in the 1.5 range, now has VISH with a creatinine of 2.3 likely hypovolemic- improved to 1.9 today 2. Hyperkalemia: Status post med management, need to be on low potassium diet, 3. Metabolic acidosis: Mild, on Bicitra 4. Syncope: orthostatic hypotension, 5. Hypothyroidism 6. Diabetes type 2 * Plan: on IVFs , + orthostatic vitals , consider compression stockings and midodrine Attestations 2 Medical Necessity Statement*: per medicine Coding Level of Care Code Acute Code for Chg Fwd Diagnoses Chronic kidney disease (CKD), stage III (moderate) N18.3 Acute hyperkalemia E87.5
[2023-07-25 16:46] LABS: Glucose Point of Care 145 mg/dL (70-110)
[2023-07-25] MEDS: atorvastatin 40 mg Tablet PO (20:31)
[2023-07-25] MEDS: tamsulosin 0.4 mg Capsule PO (20:31)
[2023-07-25 20:47] LABS: Glucose Point of Care 163 mg/dL (70-110)
[2023-07-26] VITALS (7 sets, daily range): BP systolic 101–129; BP diastolic 57–70; PULSE 52–88; RESP 18; TEMP 36.6–36.8; O2SAT 92–96; BMI 32.5
--- NOTE | 2023-07-26 00:51 | PC.NURSE ---
Report given to RAQUEL French.
[2023-07-26] MEDS: heparin 5,000 unit/mL INJ 1 mL 5000 UNIT SUBCUT (02:46)
[2023-07-26 05:12] LABS: Basophils % 0.4 %; Eosinophils # 0.1 10^3/uL (0.0-0.8); Eosinophils % 2.5 %; Hematocrit 27.5 % (37-53); Lymphocytes # 1.9 10^3/uL (0.8-4.8); Lymphocytes % 36.6 %; Mean Corpuscular HGB Conc 33.8 g/dL (30-55); Mean Corpuscular Hemoglobin 32.2 pg (27-33); Mean Corpuscular Volume 95.2 fl (82-101); Monocytes # 0.5 10^3/uL (0.2-0.9); Monocytes % 10.4 %; Neutrophils # 2.49 10^3/uL (1.8-7.7); Nucleated Red Blood Cells % 0 %; Platelet Count 111 10^3/cmm (157-399); Red Blood Count 2.89 10^6/uL (3.85-5.65); Red Cell Distribution Width 11.8 % (12.1-15.1); White Blood Count 5.19 10^3/uL (3.29-11.43)
[2023-07-26 05:30] LABS: Anion Gap 12.5 (5-19); Blood Urea Nitrogen 38 mg/dL (8-23); Calcium 8.5 mg/dL (8.5-10.5); Carbon Dioxide 20 mmol/L (22-29); Chloride 112 mmol/L (98-107); Glucose 124 mg/dL (65-115); Magnesium 1.5 mg/dL (1.7-2.3); Osmolality Calculated 300 mOsm/kg (285-295); Phosphorus 2.7 mg/dL (2.5-4.5); Potassium 4.5 mmol/L (3.5-5.1); Sodium 140 mmol/L (136-145)
[2023-07-26 06:39] LABS: Glucose Point of Care 123 mg/dL (70-110)
[2023-07-26] MEDS: sertraline 50 mg Tablet 25 MG PO (08:13)
[2023-07-26] MEDS: ciprofloxacin 500 mg Tablet PO (08:13)
[2023-07-26] MEDS: finasteride 5 mg Tablet PO (08:14)
[2023-07-26] MEDS: pantoprazole DR 40 mg Tablet PO (08:14)
[2023-07-26] MEDS: levothyroxine 50 mcg Tablet PO (08:14)
[2023-07-26] MEDS: calcium carb-vit d 600mg/400unit 1 Tablet 1 EACH PO (08:14)
[2023-07-26] MEDS: aspirin 81 mg EC Tablet PO (08:14)
[2023-07-26 11:15] LABS: Glucose Point of Care 150 mg/dL (70-110)
[2023-07-26] MEDS: magnesium lactate 84 mg Tablet PO (12:24)
[2023-07-26] MEDS: insulin lispro 100 unit/1 mL SUBCUT (12:27)
--- NOTE | 2023-07-26 12:39 | P.PN_ITS ---
Subjective 2 Subjective: doing well Medications: Reviewed: Yes Vitals/I&O/Wt Last Vital Signs Temp 98.3 F 07/26/23 11:44 Pulse 66 07/26/23 11:44 Resp 18 07/26/23 11:44 BP 129/63 07/26/23 11:44 Pulse Ox 96 07/26/23 11:44 O2 Del Method Room Air 07/26/23 11:44 07/25/23 07/26/23 07/26/23 22:59 06:59 14:59 Intake Total 2440 / 2830 360 / 360 Balance 2440 / 2830 360 / 360 Weight last 48 hrs Weight 99.881 kg Weight 96.388 kg Physical Exam 2 Narrative: Awake, alert, no distress Data 07/26/23 04:50 07/26/23 04:50 Micro: Microbiology 07/24/23 04:15 Urine Culture - Final Urine,Clean Catch Klebsiella pneumoniae A&P Assessment and plan (1) Chronic kidney disease (CKD), stage III (moderate): (2) Acute hyperkalemia: Plan 1. Acute on chronic kidney disease stage III: Baseline creatinine in the 1.5 range, now has VISH with a creatinine of 2.3 likely hypovolemic- improved to 1.9 today 2. Hyperkalemia: Status post med management, need to be on low potassium diet, 3. Metabolic acidosis: Mild, on Bicitra 4. Syncope: orthostatic hypotension, 5. Hypothyroidism 6. Diabetes type 2 * Plan: s/p IVFs , + orthostatic vitals , consider compression stockings and midodrine can DC with Nephrology follow up Attestations 2 Medical Necessity Statement*: per [place] Coding Level of Care Code Acute Code for Chg Fwd Diagnoses Chronic kidney disease (CKD), stage III (moderate) N18.3 Acute hyperkalemia E87.5
== END 2023-07-26 12:51 | disposition home or self-care (01) | DRG 683 ==
LOC: ER 14:44 → MEDSURG 17:08 → ER IP 07-24 06:52 → MEDSURG 07-24 06:52
PROVIDERS: Emergency Medicine; Hospitalist; Admitting Provider Hospitalist; Emergency Provider Physician Assistant; PCP Nurse Practitioner; Visit Provider Family Medicine
DX: N17.9 Acute kidney failure, unspecified (principal); E87.20 Acidosis, unspecified; S06.0X1A Concussion with loss of consciousness of 30 minutes or less, initial encounter; N39.0 Urinary tract infection, site not specified; E87.5 Hyperkalemia; E86.0 Dehydration; E04.1 Nontoxic single thyroid nodule; R00.1 Bradycardia, unspecified; M62.572 Muscle wasting and atrophy, not elsewhere classified, left ankle and foot; M62.571 Muscle wasting and atrophy, not elsewhere classified, right ankle and foot; I95.1 Orthostatic hypotension; M47.812 Spondylosis without myelopathy or radiculopathy, cervical region; M48.02 Spinal stenosis, cervical region; E78.00 Pure hypercholesterolemia, unspecified; Z79.4 Long term (current) use of insulin; E03.9 Hypothyroidism, unspecified; J44.9 Chronic obstructive pulmonary disease, unspecified; I12.9 Hypertensive chronic kidney disease with stage 1 through stage 4 chronic kidney disease, or unspecified chronic kidney disease; E11.22 Type 2 diabetes mellitus with diabetic chronic kidney disease; N18.31 Chronic kidney disease, stage 3a; Z87.891 Personal history of nicotine dependence; F41.9 Anxiety disorder, unspecified; G47.33 Obstructive sleep apnea (adult) (pediatric); W18.39XA Other fall on same level, initial encounter; Y93.01 Activity, walking, marching and hiking; Y92.531 Health care provider office as the place of occurrence of the external cause; M62.542 Muscle wasting and atrophy, not elsewhere classified, left hand; M62.541 Muscle wasting and atrophy, not elsewhere classified, right hand; M62.552 Muscle wasting and atrophy, not elsewhere classified, left thigh; M62.551 Muscle wasting and atrophy, not elsewhere classified, right thigh
CPT/HCPCS: 36415; 36416; 70450; 71045; 72125; 80048; 80053; 81001; 82550; 82962; 83690; 83735; 84100; 84439; 84443; 84481; 84484; 85025; 87077; 87086; 87186; 93005; 93306; 93880; 94640; 96372; 97110; 97116; 97162; J0612; J0744; J1644; J1815; J3475; J7030; J7613; Q3014

== ENCOUNTER 2023-07-31 03:15 | Emergency (ER) | payer OTHER, SELFPAY ==
[2023-07-31 03:16] VITALS: BP 111/42; PULSE 65; RESP 18; TEMP 36.6; O2SAT 95; BMI 31.0
--- NOTE | 2023-07-31 03:20 | ED_ITS ---
HPI - Weakness 2 General: Stated complaint: weakness, hypotension Time Seen by Provider: 07/31/23 03:20 History of Present Illness: Patient brought in by EMS with complaints of general weakness with nausea vomiting. Patient says he got up tonight to use the bathroom and fell due to his weakness. Patient says he did not hit his head and has no complaints of pain at this time. Paramedics said he was a little hypotensive on route they did end up giving him 1 L of lactated Ringer's and 4 mg Zofran. Blood pressure upon arrival was 111/42. They did place him on 2 L per nasal cannula although his sats did not drop. Patient does not require oxygen at home. Patient states he was just discharged from here about a week ago for the exact same symptoms that he is having now. It is noted patient last chest x-ray before discharge did not show any pneumonia, his urine did show a mild UTI and he was discharged on Cipro Review of Systems 2 General: Reports: 10 or more systems reviewed and unremarkable except in HPI and below PFSH ED 2 PFSH: Medical History Thyroid nodule incidentally noted on imaging study Hyperlipidemia Prostate enlargement Adult onset hypothyroidism Diabetes mellitus with hyperglycemia, with long-term current use of insulin 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 Obstructive sleep apnea 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 Essential (primary) hypertension Vitamin D insufficiency Anxiety Chronic kidney disease (CKD), stage III (moderate) Surgical History History of cataract surgery Both eyes H/O esophagogastroduodenoscopy 09/02/2019: Mild gastritis History of colonoscopy with polypectomy (~2009) 09/02/2019: 3 mm sessile polyp x2 descending colon Family History Mother Family history non-contributory Father Obesity Denies family history of Anesthesia complication Bleeding disorder Social History Smoking and tobacco/nicotine status: former use of tobacco/nicotine Quit status (tobacco/nicotine): has quit using Second hand smoke exposure: No Alcohol intake: current Alcohol intake frequency: holidays/special occasions only Alcohol type: beer Substance/Drug Use: never Adopted: No Caregiver/support person: Yes Lives independently: Yes Household members: spouse Housing: House Marital status: Highest education level completed: High School Graduate service: Yes status: Retired branch: [employer] Current occupational status: retired Current occupational exposures/hazards: No Pets and animals: No Sexually active: No Do you think of yourself as: Straight/Heterosexual Current gender identity: Male Arin/Mandaeism: Druze Special arin needs: No Agree to transfusion: No Physical Exam 2 Const: COMMON NORMALS: no acute distress, average body habitus, patient oriented x3, no limitations, healthy appearing, alert and well nourished HENMT: COMMON NORMALS: normocephalic, atraumatic, hearing grossly normal bilaterally, external ears normal, Normal external nose present, moist oral mucous membranes and oropharynx normal HEAD & SCALP: normocephalic and atraumatic NOSE: Normal external nose present EXTERNAL EAR: Yes external ears normal Neck/C-Spine: COMMON NORMALS: full ROM, no lymphadenopathy, supple, no meningeal signs, no JVD and Thyroid normal THYROID: Thyroid normal Chest: COMMONS NORMALS: normal inspection of the chest and normal palpation of entire chest wall Resp: COMMON NORMALS: normal respiratory effort, No retractions, No use of accessory muscles and clear to auscultation bilaterally AUSCULTATION: clear to auscultation bilaterally Cardio: COMMON NORMALS: no JVD, regular rate, regular rhythm, S1 normal heart sound present, S2 normal heart sound present, No gallops present (Cardio), No clicks present (Cardio), No murmurs present (Cardio) and No rub (Cardio) R ATE: regular rate RHYTHM: regular rhythm HEART SOUNDS: S1 normal heart sound present and S2 normal heart sound present GI: COMMON NORMALS: Normal to inspection, nondistended, normoactive bowel sounds present, Soft to palpation, non-tender, No hepatosplenomegaly present and no masses PALPATION: Yes Soft to palpation and Yes No hepatosplenomegaly present Extremity: NARRATIVE EXTREMITY EXAM: Negative edema bilateral lower extremities Neuro: COMMON NORMALS: patient oriented x3 SENSORIUM/ORIENTATION: Yes alert MENINGEAL SIGNS: Yes no meningeal signs Course 2 Vital Signs: Vital signs: Vital Signs Temperature 97.9 F 07/31/23 03:16 Pulse Rate 56 L 07/31/23 04:53 Respiratory Rate 19 H 07/31/23 04:53 Blood Pressure 136/60 07/31/23 04:53 Pulse Oximetry 93 07/31/23 04:53 Oxygen Delivery Me thod Room Air 07/31/23 04:53 Oxygen Flow Rate 2 07/31/23 03:16 MDM - Weakness Medical Decision Making Patient presents to the ER with weakness. Lab work was obtained as well as chest x-ray. Chest x-ray showed new right upper lung airspace opacity compelling for pneumonia, patient's white blood cell count is not elevated 6.1. Patient's hemoglobin hematocrit are 9.0 and 26.2. BUN/creatinine 17 and 1.5. Magnesium is little low at 1.5. Patient was given magnesium oxide and doxycycline 100 mg p.o. in ER. Patient was not requiring any supplemental oxygen. Patient was given the option of going home and following up with his PCP or if he felt he needed inpatient treatment. Patient chose to try an outpatient route. Patient be discharged on doxycycline and is to continue his magnesium he is currently on. Patient should follow-up with his PCP in approximately 1 week or sooner. Differential Diagnosis Unlikely acute myocardial infarction, anemia, hypoglycemia, hypothyroidism, rhabdomyolysis, sepsis or dehydration Medical Records I reviewed the patient's medical records. Lab Data I reviewed the patient's lab results. 07/31/23 03:35 07/31/23 03:35 Radiology Impressions Chest X-Ray 07/31/23 03:22 IMPRESSION: Right upper lung airspace opacity is compelling for pneumonia. Laboratory Results WBC 6.12 10^3/uL (3.29-11.43) 07/31/23 03:35 RBC 2.79 10^6/uL (3.85-5.65) L 07/31/23 03:35 Hgb 9.00 g/dL (11.27-16.99) L 07/31/23 03:35 Hct 26.2 % (37-53) L 07/31/23 03:35 MCV 93.9 fl (82-101) 07/31/23 03:35 MCH 32.3 pg (27-33) 07/31/23 03:35 MCHC 34.4 g/dL (30-55) 07/31/23 03:35 RDW 12.3 % (12.1-15.1) 07/31/23 03:35 Plt Count 105 10^3/cmm (157-399) L 07/31/23 03:35 MPV 10.7 fL (7.4-10.4) H 07/31/23 03:35 Neut % (Auto) 75.1 % 07/31/23 03:35 Lymph % (Auto) 9.0 % 07/31/23 03:35 [place] % (Auto) 12.6 % 07/31/23 03:35 Eos % (Auto) 1.1 % 07/31/23 03:35 Baso % (Auto) 0.2 % 07/31/23 03:35 Neut # (Auto) 4.60 10^3/uL (1.8-7.7) 07/31/23 03:35 Lymph # (Auto) 0.6 10^3/uL (0.8-4.8) L 07/31/23 03:35 [place] # (Auto) 0.8 10^3/uL (0.2-0.9) 07/31/23 03:35 Eos # (Auto) 0.1 10^3/uL (0.0-0.8) 07/31/23 03:35 Baso # (Auto) 0.0 10^3/uL (0.0-0.1) 07/31/23 03:35 Nucleated RBC % (auto) 0 % 07/31/23 03:35 Nucleated RBCs # 0.0 /100WBC 07/31/23 03:35 Sodium 140 mmol/L (136-145) 07/31/23 03:35 Potassium 4.5 mmol/L (3.5-5.1) 07/31/23 03:35 Chloride 110 mmol/L (98-107) H 07/31/23 03:35 Carbon Dioxide 22 mmol/L (22-29) 07/31/23 03:35 Anion Gap 12.5 (5-19) 07/31/23 03:35 BUN 17 mg/dL (8-23) 07/31/23 03:35 Creatinine 1.5 mg/dL (0.7-1.2) H 07/31/23 03:35 GFR Calculation Not Reportable 07/31/23 03:35 Glucose 69 mg/dL (65-115) 07/31/23 03:35 Calculated Osmolality 290 mOsm/kg (285-295) 07/31/23 03:35 Calcium 8.2 mg/dL (8.5-10.5) L 07/31/23 03:35 Magnesium 1.5 mg/dL (1.7-2.3) L 07/31/23 03:35 Total Bilirubin 0.4 mg/dL (0.15-1.2) 07/31/23 03:35 AST 28 U/L (0-40) 07/31/23 03:35 ALT 29 U/L (0-41) 07/31/23 03:35 Alkaline Phosphatase 56 U/L (40-130) 07/31/23 03:35 Troponin T Baseline 41 ng/L (0-15) H 07/31/23 03:35 Total Protein 6.0 g/dL (6.6-8.7) L 07/31/23 03:35 Albumin 3.3 g/dL (3.5-5.2) L 07/31/23 03:35 Globulin 2.7 g/dL (1.3-4.6) 07/31/23 03:35 Urine Color Yellow (Yellow) 07/31/23 04:10 Urine Appearance Clear (CLEAR) 07/31/23 04:10 Urine pH 5 (5-7) 07/31/23 04:10 Ur Specific [place] 1.020 (1.005-1.030) 07/31/23 04:10 Urine Protein Neg (Negative) 07/31/23 04:10 Urine Glucose (UA) Norm (Normal) 07/31/23 04:10 Urine Ketones Negative (Negative) 07/31/23 04:10 Urine Blood Neg (Negative) 07/31/23 04:10 Urine Nitrate Negative (Negative) 07/31/23 04:10 Urine Bilirubin Neg (Negative) 07/31/23 04:10 Urine Urobilinogen Norm mg/dL (Negative) 07/31/23 04:10 Ur Leukocyte Esterase Trace (Negative) H 07/31/23 04:10 Urine RBC 0-4 /hpf (0-2) H 07/31/23 04:10 Urine WBC 5-10 /hpf (0-5) H 07/31/23 04:10 Ur Squamous Epith Cells 0-4 /hpf (0-5) H 07/31/23 04:10 Amorphous Sediment Not Reportable 07/31/23 04:10 Urine Bacteria Trace /hpf (NONE) 07/31/23 04:10 All radiology interpretation(s) finalized by discharge EKG Data EKG 1: I personally reviewed and interpreted this EKG as follows: EKG interpretation date: 07/31/23 EKG interpretation time: 03:24 Prior EKG tracings: not available for review Interpretation: EKG showed ventricular rate 64 bpm, NH interval 160, QRS duration 122, QTc of 4 9, sinus rhythm, right bundle branch block, Discharge Plan Discharge Patient Disposition: Home Clinical Impression: Generalized weakness Right upper lobe pneumonia Qualifiers: Pneumonia type: due to unspecified organism Qualified Code(s): J18.9 - Pneumonia, unspecified organism Condition: Stable Prescriptions: New doxycycline hyclate 100 mg capsule 100 mg PO BID 7 Days Qty: 14 0RF No Action (DME) pen needle, diabetic 32 gauge x / needle See Rx Instructions .ROUTE .MEDSUPPLY Qty: 200 5RF Rx Instructions: 5 daily calcium carbonate-vitamin D3 500 mg-15 mcg (600 unit) tablet 1 tab PO BID Qty: 60 2RF (DME) cpap See Rx Instructions .Route .MEDSUPPLY Qty: 1 0RF Rx Instructions: As directed 99 months, npi [id number] use cpap nightly and needs all supplys (DME) diabetic shoes with inserts See Rx Instructions .Route .MEDSUPPLY Qty: 1 0RF Rx Instructions: As directed albuterol sulfate [Ventolin HFA] 90 mcg/actuation HFA aerosol inhaler 2 puff inhalation Q6H PRN (Reason: shortness of breath or wheezing) Qty: 8.5 0RF Ozempic 0.25 mg or 0.5 mg (2 mg/3 mL) pen injector 1 mg SUBCUT .weekly Rx Instructions: on sunday sodium chloride 1,000 mg tablet,soluble 1,000 mg PO DAILY Qty: 30 2RF levothyroxine 50 mcg tablet 50 mcg PO DAILY Qty: 90 0RF finasteride [Proscar] 5 mg tablet 5 mg PO DAILY Qty: 90 0RF sertraline 50 mg tablet 50 mg PO DAILY buspirone 15 mg tablet 15 mg PO DAILY PRN (Reason: Anxiety) atorvastatin 10 mg tablet 10 mg PO BEDTIME tamsulosin 0.4 mg capsule 0.4 mg PO BID Hold Instructions: Resume on 05/09/22. (DME) Ankle support evaluation See Rx Instructions .Route .MEDSUPPLY Qty: 1 0RF Rx Instructions: evaluation bilateral ankle for support products. aspirin 81 mg tablet,delayed release (DR/EC) 81 mg PO DAILY Magtab 84 mg Tablet Extended Release 84 mg PO BID 7 Days Qty: 14 0RF (DME) compress.stocking,knee,reg,lrg Misc See Rx Instructions .Route Qty: 2 0RF Rx Instructions: As directed nystatin 100,000 unit/gram cream 1 applic topical BID Qty: 30 0RF Discharge Orders: Discharge ED (Routine); Ordered 07/31/23 Ordered By: Wilman Moreno Referrals: Jameson Beal, CARE COORDINATOR-C [Primary Care Provider] - 1 week Patient Instructions: Weakness (ED), Pneumonia (ED) Activity Restrictions/Additional Instructions: Please take all your medicine as directed. Please follow-up with your family practice physician within the next 7 days or sooner for further evaluation and treatment. If your symptoms worsen please return to the ER. Coding Level of Care Code ED Alarm Mechanic for Juan Jose Alcala
--- NOTE | 2023-07-31 03:21 | ECG_ITS ---
[facility] Test Date: 2023-07-31 Pat Name: Vik Bruce Department: Room: Gender: Male Hull Inspector: : 1940 Requested By: Wilman Moreno Order Number: [id number] Venkata MD: Cherelle Saenz M.D. Measurements Intervals [place] Rate: 64 P: 3 AR: 160 QRS: 34 QRSD: 122 T: 14 QT: 400 QTc: 414 Interpretive Statements SINUS RHYTHM RIGHT BUNDLE BRANCH BLOCK [120+ ms QRS DURATION, UPRIGHT V1, 40+ ms S IN I/aVL/V4/V5/V6] Compared to ECG 07/23/2023 13:48:45 Right bundle-branch block now present First degree AV block no longer present Indeterminate axis no longer present Intraventricular conduction delay no longer present Electronically Signed On 07-31-2023 10:10:41 QA SOFTWARE TEST ENGINEER by Cherelle Saenz M.D. [id number]
--- NOTE | 2023-07-31 03:22 | XRR_ITS ---
PROCEDURE INFORMATION: Exam: XR Chest Exam date and time: 07/31/2023 3:36 AM Age: 82 years old Clinical indication: Other: Weak; Additional info: Weakness TECHNIQUE: Imaging protocol: Radiologic exam of the chest. Views: 1 view. COMPARISON: CR XR chest 1V portable [id number] 07/23/2023 11:29 AM FINDINGS: Lungs: Interval development of heterogeneous opacity in the right upper lung. Pleural spaces: No pleural effusion. No pneumothorax. Heart/Mediastinum: Cardiac silhouette is normal in size for technique. Bones/joints: Age appropriate. XR/XR chest 1V portable [id number] IMPRESSION: Right upper lung airspace opacity is compelling for pneumonia.
[2023-07-31 03:41] VITALS: BP 116/45; PULSE 62; RESP 21; O2SAT 92
[2023-07-31 03:42] LABS: Basophils % 0.2 %; Eosinophils # 0.1 10^3/uL (0.0-0.8); Eosinophils % 1.1 %; Hematocrit 26.2 % (37-53); Lymphocytes # 0.6 10^3/uL (0.8-4.8); Mean Corpuscular HGB Conc 34.4 g/dL (30-55); Mean Corpuscular Hemoglobin 32.3 pg (27-33); Mean Corpuscular Volume 93.9 fl (82-101); Mean Platelet Volume 10.7 fL (7.4-10.4); Monocytes # 0.8 10^3/uL (0.2-0.9); Monocytes % 12.6 %; Neutrophils % 75.1 %; Nucleated Red Blood Cells % 0 %; Platelet Count 105 10^3/cmm (157-399); Red Blood Count 2.79 10^6/uL (3.85-5.65); Red Cell Distribution Width 12.3 % (12.1-15.1); White Blood Count 6.12 10^3/uL (3.29-11.43)
[2023-07-31 03:57] LABS: Troponin(5th) Baseline 41 ng/L (0-15)
[2023-07-31 04:00] LABS: Alanine Aminotransferase 29 U/L (0-41); Albumin Level 3.3 g/dL (3.5-5.2); Alkaline Phosphatase 56 U/L (40-130); Anion Gap 12.5 (5-19); Aspartate Amino Transferase 28 U/L (0-40); Blood Urea Nitrogen 17 mg/dL (8-23); Calcium 8.2 mg/dL (8.5-10.5); Carbon Dioxide 22 mmol/L (22-29); Chloride 110 mmol/L (98-107); Globulin 2.7 g/dL (1.3-4.6); Glucose 69 mg/dL (65-115); Magnesium 1.5 mg/dL (1.7-2.3); Osmolality Calculated 290 mOsm/kg (285-295); Potassium 4.5 mmol/L (3.5-5.1); Sodium 140 mmol/L (136-145); Total Bilirubin 0.4 mg/dL (0.15-1.2)
[2023-07-31 04:09] VITALS: BP 144/68; PULSE 96; RESP 25; O2SAT 93
[2023-07-31 04:21] LABS: Add Urine Culture? No; Add Urine Microscopic? YES; Bacteria Urine TRACE /hpf; Bilirubin Urine Neg (Negative); Blood Urine Neg (Negative); Glucose Urine UA Norm (Normal); Ketones Urine Negative (Negative); Leukocyte Esterase Urine Trace (Negative); Nitrate Urine Negative (Negative); Protein Urine Neg (Negative); RBC Urine 0-4 /hpf (0-2); Squamous Epithelial Cell Urine 0-4 /hpf (0-5); Urine Appearance Clear (CLEAR); Urine Color Yellow (Yellow); Urobilinogen Urine Norm (Negative); pH Urine 5 (5-7)
--- NOTE | 2023-07-31 04:52 | PC.NURSE ---
ATTEMPTED TO GET AHOLD OF MARCELLUS AT THIS TIME TO [employer] FORWARDER PATIENT FOR DISCHARGE. DID LEAVE A VOICEMAIL FOR HER TO CALL BACK TO ER.
[2023-07-31 04:53] VITALS: BP 136/60; PULSE 56; RESP 19; O2SAT 93
[2023-07-31] MEDS: magnesium oxide 400 mg tablet PO (04:58)
[2023-07-31] MEDS: doxycycline 100 mg Tablet PO (04:59)
--- NOTE | 2023-07-31 05:16 | PC.NURSE ---
THIS NURSE ATTEMPTED TO GET AHOLD OF MARCELLUS AGAIN ON BEHALF OF PATIENT WITH NO RESPONSE. DID LEAVE VOICEMAIL ASKING TO CALL ER.
--- NOTE | 2023-07-31 07:14 | PC.NURSE ---
spoke with - she is scared to come and get patient asked if there was another way- registration is attempting to find a ride with kiah
== END 2023-07-31 09:17 | disposition home or self-care (01) ==
PROVIDERS: Emergency Provider Emergency Medicine; PCP Nurse Practitioner
DX: R53.1 Weakness (principal); I45.10 Unspecified right bundle-branch block; J18.9 Pneumonia, unspecified organism; E83.42 Hypomagnesemia
CPT/HCPCS: 71045; 80053; 81001; 83735; 84484; 85025; 87040; 93005; 99285

== ENCOUNTER → 2023-08-02 10:34 | Outpatient (BNVA) | payer OTHER, MEDICARE, SELFPAY | PROVIDERS: PCP Nurse Practitioner; Visit Provider Nurse Practitioner | DX: E61.1 Iron deficiency (principal); E11.22 Type 2 diabetes mellitus with diabetic chronic kidney disease; N18.32 Chronic kidney disease, stage 3b; E03.8 Other specified hypothyroidism; E11.8 Type 2 diabetes mellitus with unspecified complications; Z79.4 Long term (current) use of insulin; F41.9 Anxiety disorder, unspecified; N40.0 Benign prostatic hyperplasia without lower urinary tract symptoms; E87.1 Hypo-osmolality and hyponatremia; R39.11 Hesitancy of micturition; M79.672 Pain in left foot; R26.81 Unsteadiness on feet; S92.515A Nondisplaced fracture of proximal phalanx of left lesser toe(s), initial encounter for closed fracture; X58.XXXA Exposure to other specified factors, initial encounter | CPT/HCPCS: 73630; 80048; 83036; 83550; 83735; 85025 ==

== ENCOUNTER → 2023-08-13 09:31 | Outpatient (BNVA) | payer OTHER, MEDICARE, SELFPAY | PROVIDERS: PCP Nurse Practitioner; Visit Provider Nurse Practitioner | DX: I10 Essential (primary) hypertension (principal) | CPT/HCPCS: 80048; 85025 ==

== ENCOUNTER → 2023-08-29 11:06 | Outpatient (BNVA) | payer MEDICARE, SELFPAY | PROVIDERS: PCP Nurse Practitioner; Visit Provider Nurse Practitioner | DX: E61.1 Iron deficiency (principal); E11.22 Type 2 diabetes mellitus with diabetic chronic kidney disease; N18.32 Chronic kidney disease, stage 3b; R63.0 Anorexia; Z79.899 Other long term (current) drug therapy | CPT/HCPCS: 85025 ==

== ENCOUNTER 2023-09-21 09:36 | Outpatient (CLI) | payer MEDICARE, SELFPAY ==
--- NOTE | 2023-09-21 11:00 | CT_ITS ---
WS: [id number] CT ABDOMEN AND PELVIS NONCONTRAST HISTORY: E61.1 - Iron deficiency TECHNIQUE: Imaging performed through the abdomen and pelvis. Coronal and sagittal reformats are submi tted. All CT scans at [facility] use at least one of these dose optimization techniques: auto mated exposure control; mA and/or kV adjustment per patient size (includes targeted exams where dose is matched to clinical indication); or iterative reconstruction. DLP: 743.02 mGy.cm COMPARISON: 09/21/2022, renal ultrasound 11/23/2022 Lower thorax: Mild dependent changes at the lung bases. No mass. Mild cardiomegaly. Liver: Normal size liver. No mass or bile duct dilatation. Gallbladder: Cholelithiasis. Gallbladder slightly contracted there are several stones present. No alex dence for acute cholecystitis. No bile duct dilatation. Pancreas: Normal size and attenuation. Normal pancreatic duct. No pancreatitis or mass. Spleen: Normal. Adrenal glands: Normal. No mass. Right kidney: Low normal size kidney at 9.4 cm in length. No hydronephrosis and no mass. 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 Left kidney: Low normal size kidney at 9.3 cm. No hydronephrosis. Exophytic mass from the mid to lowe r LEFT kidney is similar to the prior study. Ultrasound performed on 11/23/2022 demonstrated a cyst. E xophytic mass measures 1.5 x 1.7 cm. Aorta: Mild atherosclerosis abdominal aorta with no aneurysm. No free fluid, intraperitoneal air or significant lymphadenopathy. GI tract: Normal stomach. No small bowel obstruction. The appendix is not identified. No secondary fi ndings of appendicitis. No colon obstruction. No strictures identified. Abdominal wall: Small umbilical hernia contains fat only. Pelvis: No free fluid. Mildly enlarged prostate gland is similar to the prior study. Osseous structures: Moderate degenerative changes in the lower lumbar spine. No fracture. IMPRESSION: 1. No acute abdominal or pelvic abnormalities. 2. Cholelithiasis without acute cholecystitis. 3. Low normal size kidneys. Similar to 09/21/2022. 4. No GI tract obstruction and no mass identified by CT.
== END 2023-09-21 09:37 | disposition home or self-care (01) ==
LOC: RAD 09:36
PROVIDERS: PCP Nurse Practitioner; Visit Provider Nurse Practitioner
DX: E61.1 Iron deficiency (principal); E11.22 Type 2 diabetes mellitus with diabetic chronic kidney disease; N18.32 Chronic kidney disease, stage 3b; R63.0 Anorexia; K80.20 Calculus of gallbladder without cholecystitis without obstruction
CPT/HCPCS: 74176

== ENCOUNTER → 2023-10-10 10:50 | Outpatient (BNVA) | payer MEDICARE, SELFPAY | PROVIDERS: PCP Nurse Practitioner; Visit Provider Nurse Practitioner | DX: E61.1 Iron deficiency; E11.9 Type 2 diabetes mellitus without complications; E03.8 Other specified hypothyroidism | CPT/HCPCS: 80053; 83036; 83540; 84443 ==

== ENCOUNTER → 2023-10-11 16:24 | Outpatient (BNVA) | payer MEDICARE, SELFPAY | PROVIDERS: PCP Nurse Practitioner; Visit Provider Nurse Practitioner | DX: E11.22 Type 2 diabetes mellitus with diabetic chronic kidney disease (principal); N18.32 Chronic kidney disease, stage 3b | CPT/HCPCS: 80048 ==

== ENCOUNTER 2023-10-19 15:22 | Emergency (ER) | payer MEDICARE, SELFPAY ==
[2023-10-19] VITALS (7 sets, daily range): BP systolic 116–167; BP diastolic 64–93; PULSE 50–60; RESP 18; TEMP 36.7; O2SAT 95–99; BMI 28.8
[2023-10-19 15:35] LABS: Glucose Point of Care > 600 mg/dL (70-110)
--- NOTE | 2023-10-19 16:06 | ED_ITS ---
HPI - General Adult 2 General: Chief complaint: General Medical Stated complaint: High blood sugar Time Seen by Provider: 10/19/23 16:03 History of Present Illness: 83-year-old man with a history of diabet es, hypertension, hyperlipidemia, COPD, CKD who presents the emergency room with high blood sugars. He reports he does have some frequent urination. No altered mental status. No nausea or vomiting. No abdominal pain. No chest pain. No shortness of breath. No cough. Review of Systems 2 Narrative: Constitutional symptoms: Negative except as documented in HPI. Skin symptoms: Negative except as documented in HPI. Eye symptoms: Negative except as documented in HPI. ENMT symptoms: Negative except as documented in HPI. Respiratory symptoms: Negative except as documented in HPI. Cardiovascular symptoms: Negative except as documented in HPI. Gastrointestinal symptoms: Negative except as documented in HPI. Genitourinary symptoms: Negative except as documented in HPI. Musculoskeletal symptoms: Negative except as documented in HPI. Neurologic symptoms: Negative except as documented in HPI. Psychiatric symptoms: Negative except as documented in HPI. Endocrine symptoms: Negative except as documented in HPI. 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 Obstructive sleep apnea 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 Essential (primary) hypertension Vitamin D insufficiency Anxiety Chronic kidney disease (CKD), stage III (moderate) Surgical History History of cataract surgery Both eyes H/O esophagogastroduodenoscopy 09/02/2019: Mild gastritis History of colonoscopy with polypectomy (~2009) 09/02/2019: 3 mm sessile polyp x2 descending colon Family History Mother Family history non-contributory Father Obesity Denies family history of Anesthesia complication Bleeding disorder Social History Smoking and tobacco/nicotine status: former use of tobacco/nicotine Quit status (tobacco/nicotine): has quit using Second hand smoke exposure: No Alcohol intake: current Alcohol intake frequency: holidays/special occasions only Alcohol type: beer Substance/Drug Use: never Adopted: No Caregiver/support person: Yes Lives independently: Yes Household members: spouse Housing: House Marital status: Highest education level completed: High School Graduate service: Yes status: Retired branch: [employer] Current occupational status: retired Current occupational exposures/hazards: No Pets and animals: No Sexually active: No Do you think of yourself as: Straight/Heterosexual Current gender identity: Male Arin/Christianity: Sabianism Special arin needs: No Agree to transfusion: No Physical Exam 2 Narrative: EXAM NARRATIVE: General: Alert, no acute distress. Skin: Warm, dry. Head: Normocephalic, atraumatic. Neck: Supple, trachea midline. Eye: Extraocular movements are intact. Ears, nose, mouth and throat: Tacky oral mucosa Cardiovascular: Regular, Normal peripheral perfusion. Respiratory: Lungs are clear to auscultation, respirations are non-labored, breath sounds are equal, Symmetrical chest wall expansion. Gastrointestinal: Soft, Nontender, Non distended, Normal bowel sounds. Musculoskeletal: Normal ROM, no deformity. Neurological: Alert and oriented, No focal neurological deficit observed. Psychiatric: Cooperative, appropriate mood & affect. Course 2 Vital Signs: Vital signs: Vital Signs Temperature 98.0 F 10/19/23 15:24 Pulse Rate 50 L 10/19/23 18:30 Respiratory Rate 18 10/19/23 15:24 Blood Pressure 116/68 10/19/23 18:30 Pulse Oximetry 97 10/19/23 18:30 Oxygen Delivery Me thod Room Air 10/19/23 15:24 MDM - General Adult Medical Decision Making Medical decision making: Differential diagnosis including but not limited to and based on the above HPI, review of systems and physical exam: Patient presents with hyperglycemia. Would have concern for infection underlying such as UTI pneumonia or flu or COVID. Concern for DKA. Concern for renal failure. Orders placed to evaluate differential diagnosis based on the above differential, HPI and physical exam Lab Review: Laboratory results were reviewed and interpreted by myself the emergency room physician. Patient has received 2 L of fluid. Glucose has continued to come down. BUN and creatinine are 33 and 1.6. White count 6.9. Initial glucose was 640. No signs of DKA. Bicarb is 22. He does not have any symptoms no confusion. No respiratory symptoms. No fevers. Reexamination: Patient seems to be feeling better after fluids. His glucose down to 420. Giving 10 more of IV insulin and they want to go home. Apparently he has had his insulin adjusted several times recently. We discussed that he needs to urgently see his primary to increase his insulin again. Lab Data 10/19/23 16:15 10/19/23 16:15 Laboratory Results WBC 6.90 10^3/uL (3.29-11.43) 10/19/23 16:15 RBC 3.71 10^6/uL (3.85-5.65) L 10/19/23 16:15 Hgb 11.90 g/dL (11.27-16.99) 10/19/23 16:15 Hct 34.6 % (37-53) L 10/19/23 16:15 MCV 93.3 fl (82-101) 10/19/23 16:15 MCH 32.1 pg (27-33) 10/19/23 16:15 MCHC 34.4 g/dL (30-55) 10/19/23 16:15 RDW 12.0 % (12.1-15.1) L 10/19/23 16:15 Plt Count 124 10^3/cmm (157-399) L 10/19/23 16:15 MPV 12.2 fL (7.4-10.4) H 10/19/23 16:15 Neut % (Auto) 65.2 % 10/19/23 16:15 Lymph % (Auto) 23.9 % 10/19/23 16:15 [place] % (Auto) 5.7 % 10/19/23 16:15 Eos % (Auto) 1.9 % 10/19/23 16:15 Baso % (Auto) 0.3 % 10/19/23 16:15 Neut # (Auto) 4.50 10^3/uL (1.8-7.7) 10/19/23 16:15 Lymph # (Auto) 1.7 10^3/uL (0.8-4.8) 10/19/23 16:15 [place] # (Auto) 0.4 10^3/uL (0.2-0.9) 10/19/23 16:15 Eos # (Auto) 0.1 10^3/uL (0.0-0.8) 10/19/23 16:15 Baso # (Auto) 0.0 10^3/uL (0.0-0.1) 10/19/23 16:15 Nucleated RBC % (auto) 0 % 10/19/23 16:15 Nucleated RBCs # 0.0 /100WBC 10/19/23 16:15 Sodium 127 mmol/L (136-145) L 10/19/23 16:15 Potassium 5.2 mmol/L (3.5-5.1) H 10/19/23 16:15 Chloride 94 mmol/L (98-107) L 10/19/23 16:15 Carbon Dioxide 21 mmol/L (22-29) L 10/19/23 16:15 Anion Gap 17.2 (5-19) 10/19/23 16:15 BUN 33 mg/dL (8-23) H 10/19/23 16:15 Creatinine 1.6 mg/dL (0.7-1.2) H 10/19/23 16:15 GFR Calculation Not Reportable 10/19/23 16:15 Glucose 639 mg/dL (65-115) H* 10/19/23 16:15 POC Glucose 420 mg/dL (70-110) H 10/19/23 19:24 Calculated Osmolality 301 mOsm/kg (285-295) H 10/19/23 16:15 Lactic Acid 1.8 mmol/L (0.5-2.2) 10/19/23 16:15 Calcium 9.1 mg/dL (8.5-10.5) 10/19/23 16:15 Total Bilirubin 0.3 mg/dL (0.15-1.2) 10/19/23 16:15 AST 15 U/L (0-40) 10/19/23 16:15 ALT 24 U/L (0-41) 10/19/23 16:15 Alkaline Phosphatase 150 U/L (40-130) H 10/19/23 16:15 Total Protein 7.0 g/dL (6.6-8.7) 10/19/23 16:15 Albumin 4.0 g/dL (3.5-5.2) 10/19/23 16:15 Globulin 3.0 g/dL (1.3-4.6) 10/19/23 16:15 Urine Color Light yellow (Yellow) 10/19/23 17:32 Urine Appearance Clear (CLEAR) 10/19/23 17:32 Urine pH 5 (5-7) 10/19/23 17:32 Ur Specific [place] 1.010 (1.005-1.030) 10/19/23 17:32 Urine Protein Neg (Negative) 10/19/23 17:32 Urine Glucose (UA) 4+ (Normal) H 10/19/23 17:32 Urine Ketones Negative (Negative) 10/19/23 17:32 Urine Blood Neg (Negative) 10/19/23 17:32 Urine Nitrate Negative (Negative) 10/19/23 17:32 Urine Bilirubin Neg (Negative) 10/19/23 17:32 Urine Urobilinogen Norm mg/dL (Negative) 10/19/23 17:32 Ur Leukocyte Esterase Trace (Negative) H 10/19/23 17:32 Urine RBC None /hpf (0-2) 10/19/23 17:32 Urine WBC Rare /hpf (0-5) 10/19/23 17:32 Ur Squamous Epith Cells None /hpf (0-5) 10/19/23 17:32 Amorphous Sediment Not Reportable 10/19/23 17:32 Urine Bacteria Trace /hpf (NONE) 10/19/23 17:32 Urine Yeast Trace /hpf 10/19/23 17:32 Serum Ketones Negative (Negative) 10/19/23 16:15 Influenza Type A Ag negative (Negative) 10/19/23 16:10 Influenza Type B Ag negative (Negative) 10/19/23 16:10 SARS-CoV-2 Ag (Rapid) negative (Negative) 10/19/23 16:10 No radiology studies performed this visit Other Data Assessment and plan: Hyperglycemia Dehydration -2 L normal saline bolus and two 10 unit IV insulin boluses. - Discharged home - Discussed findings and plan with patient. Answered any questions. - All laboratory values were reviewed and interpreted personally by myself, the ER physician - All imaging was reviewed and interpreted personally by myself, the ER physician. - Evaluation and treatment of this problem were appropriate in the emergency setting Discharge Plan Discharge Patient Disposition: Home Clinical Impression: Hyperglycemia, Dehydration Condition: Stable Prescriptions: No Action (DME) pen needle, diabetic 32 gauge x 5/32 needle See Rx Instructions .ROUTE .MEDSUPPLY Qty: 200 5RF Rx Instructions: 5 daily (DME) cpap See Rx Instructions .Route .MEDSUPPLY Qty: 1 0RF Rx Instructions: As directed 99 months, npi [id number] use cpap nightly and needs all supplys (DME) diabetic shoes with inserts See Rx Instructions .Route .MEDSUPPLY Qty: 1 0RF Rx Instructions: As directed albuterol sulfate [Ventolin HFA] 90 mcg/actuation HFA aerosol inhaler 2 puff inhalation Q6H PRN (Reason: shortness of breath or wheezing) Qty: 8.5 0RF tamsulosin 0.4 mg capsule 0.4 mg PO BID Qty: 60 2RF Hold Instructions: Monitor BP due to low atorvastatin 10 mg tablet 10 mg PO BEDTIME Qty: 30 2RF buspirone 15 mg tablet 15 mg PO DAILY PRN (Reason: Anxiety) Qty: 60 2RF calcium carbonate-vitamin D3 500 mg-15 mcg (600 unit) tablet 1 tab PO BID Qty: 60 2RF finasteride [Proscar] 5 mg tablet 5 mg PO DAILY Qty: 30 2RF levothyroxine 75 mcg tablet 75 mcg PO DAILY Qty: 30 2RF Rx Instructions: dose increase pantoprazole [Protonix] 20 mg tablet,delayed release (DR/EC) 20 mg PO DAILY Qty: 90 1RF sertraline 50 mg tablet 50 mg PO DAILY Qty: 30 2RF sodium chloride 1,000 mg tablet,soluble 1,000 mg PO DAILY Qty: 30 2RF glimepiride 4 mg tablet 4 mg PO BID Qty: 60 2RF insulin glargine [Lantus Solostar U-100 Insulin] 100 unit/mL (3 mL) insulin pen 50 unit SUBCUT BID amlodipine [Norvasc] 2.5 mg tablet 2.5 mg PO DAILY Qty: 30 0RF (DME) Ankle support evaluation See Rx Instructions .Route .MEDSUPPLY Qty: 1 0RF Rx Instructions: evaluation bilateral ankle for support products. ferrous gluconate 324 mg (38 mg iron) tablet 324 mg PO BID Qty: 180 1RF Rx Instructions: dose increase Ozempic 0.25 mg or 0.5 mg (2 mg/3 mL) pen injector 0.5 mg SUBCUT .weekly Qty: 3 2RF (DME) wheel chair See Rx Instructions .Route .MEDSUPPLY Qty: 1 0RF Rx Instructions: As directed (DME) surgerical shoe left See Rx Instructions .Route .MEDSUPPLY Qty: 1 0RF Rx Instructions: As directed wear for toe support aspirin 81 mg tablet,delayed release (DR/EC) 81 mg PO DAILY (DME) compress.stocking,knee,reg,lrg Misc See Rx Instructions .Route Qty: 2 0RF Rx Instructions: As directed nystatin 100,000 unit/gram cream 1 applic topical BID Qty: 30 0RF Discharge Orders: Discharge ED (Routine); Ordered 10/19/23 Ordered By: Marcia Lima Referrals: Jameson Beal, GREGORYC [Primary Care Provider] - (You have been screened and evaluated and felt safe for discharge. Health conditions do change or evolve sometimes and as such it is important that you follow up with your Primary Doctor to be re checked, 3-5 days is a general good time frame for follow up. You are always welcome to return to the ED for re assessment if your symptoms are worsening or you have new concerns) Discharge Diet: As Directed Discharge Activity: Increase activity as tolerated Patient Instructions: Hyperglycemia, Opioid Safety, Pain Management Coding Level of Care Code ED Director [facility] Operations for [facility]
[2023-10-19] MEDS: insulin regular-human 100 units/1 mL 10 UNIT IVP ×2 (16:19→19:35)
[2023-10-19] MEDS: sodium chloride 0.9% 1,000 ML 999 ML IV (16:19)
[2023-10-19 16:43] LABS: Basophils % 0.3 %; Eosinophils # 0.1 10^3/uL (0.0-0.8); Eosinophils % 1.9 %; Hematocrit 34.6 % (37-53); Lymphocytes # 1.7 10^3/uL (0.8-4.8); Lymphocytes % 23.9 %; Mean Corpuscular HGB Conc 34.4 g/dL (30-55); Mean Corpuscular Hemoglobin 32.1 pg (27-33); Mean Corpuscular Volume 93.3 fl (82-101); Mean Platelet Volume 12.2 fL (7.4-10.4); Monocytes # 0.4 10^3/uL (0.2-0.9); Monocytes % 5.7 %; Neutrophils % 65.2 %; Nucleated Red Blood Cells % 0 %; Platelet Count 124 10^3/cmm (157-399); Red Blood Count 3.71 10^6/uL (3.85-5.65)
[2023-10-19 16:58] LABS: Glucose Point of Care 527 mg/dL (70-110)
[2023-10-19 16:59] LABS: Lactic Sepsis W/Reflex 1.8 mmol/L (0.5-2.2)
[2023-10-19 17:00] LABS: Alanine Aminotransferase 24 U/L (0-41); Alkaline Phosphatase 150 U/L (40-130); Anion Gap 17.2 (5-19); Aspartate Amino Transferase 15 U/L (0-40); Blood Urea Nitrogen 33 mg/dL (8-23); Calcium 9.1 mg/dL (8.5-10.5); Carbon Dioxide 21 mmol/L (22-29); Chloride 94 mmol/L (98-107); Creatinine Clr Calc Pharmacy 37.8196; Osmolality Calculated 301 mOsm/kg (285-295); Potassium 5.2 mmol/L (3.5-5.1); Sodium 127 mmol/L (136-145); Total Bilirubin 0.3 mg/dL (0.15-1.2)
[2023-10-19 17:01] LABS: Influenza A by IFA negative (Negative); Influenza B by IFA negative (Negative)
[2023-10-19 17:02] LABS: SARS Covid-2 Antigen negative (Negative)
[2023-10-19 17:04] LABS: Glucose 639 mg/dL (65-115)
[2023-10-19 17:08] LABS: Ketone (Acetest) Serum Negative (Negative)
[2023-10-19 17:33] LABS: Slide Review Slide Review Perform
[2023-10-19 17:54] LABS: Glucose Urine UA 4+ (Normal); Protein Urine Neg (Negative); Urine Appearance Clear (CLEAR); Urine Color Light yellow (Yellow); pH Urine 5 (5-7)
[2023-10-19 17:55] LABS: Bilirubin Urine Neg (Negative); Blood Urine Neg (Negative); Ketones Urine Negative (Negative); Leukocyte Esterase Urine Trace (Negative); Nitrate Urine Negative (Negative); Urobilinogen Urine Norm (Negative)
[2023-10-19 17:58] LABS: Bacteria Urine TRACE /hpf; WBC Urine RARE /hpf (0-5)
[2023-10-19 17:59] LABS: Add Urine Culture? No
[2023-10-19 18:21] LABS: Glucose Point of Care 439 mg/dL (70-110)
[2023-10-19] MEDS: sodium chloride 0.9% 500 ML 999 ML IV (18:50)
[2023-10-19 19:27] LABS: Glucose Point of Care 420 mg/dL (70-110)
[2023-10-19 20:06] LABS: Glucose Point of Care 323 mg/dL (70-110)
== END 2023-10-19 20:12 | disposition home or self-care (01) ==
PROVIDERS: Emergency Provider Emergency Medicine; PCP Nurse Practitioner
DX: E11.65 Type 2 diabetes mellitus with hyperglycemia (principal); E86.0 Dehydration; Z79.82 Long term (current) use of aspirin; Z79.4 Long term (current) use of insulin; Z79.85 Long-term (current) use of injectable non-insulin antidiabetic drugs; Z11.52 Encounter for screening for COVID-19; Z87.891 Personal history of nicotine dependence; E78.5 Hyperlipidemia, unspecified; J44.9 Chronic obstructive pulmonary disease, unspecified; E11.22 Type 2 diabetes mellitus with diabetic chronic kidney disease; I12.9 Hypertensive chronic kidney disease with stage 1 through stage 4 chronic kidney disease, or unspecified chronic kidney disease; N18.30 Chronic kidney disease, stage 3 unspecified
CPT/HCPCS: 36416; 80053; 81001; 82009; 82962; 83605; 85025; 87040; 87426; 87804; 96361; 96374; 96376; 99284; J1815; J7030; J7040

== ENCOUNTER → 2023-10-25 13:32 | Outpatient (BNVA) | payer MEDICARE, SELFPAY | PROVIDERS: PCP Nurse Practitioner; Visit Provider Nurse Practitioner | DX: E11.22 Type 2 diabetes mellitus with diabetic chronic kidney disease (principal); N18.32 Chronic kidney disease, stage 3b | CPT/HCPCS: 80048 ==

== ENCOUNTER → 2024-02-06 16:06 | Outpatient (BNVA) | payer MEDICARE, SELFPAY | PROVIDERS: PCP Nurse Practitioner; Visit Provider Nurse Practitioner | DX: N18.9 Chronic kidney disease, unspecified (principal) | CPT/HCPCS: 80069; 82043; 82310; 83970; 85025 ==

== ENCOUNTER → 2024-02-21 10:15 | Outpatient (BNVA) | payer MEDICARE, SELFPAY | PROVIDERS: PCP Nurse Practitioner; Visit Provider Podiatrist Foot & Ankle Surgery | DX: L60.0 Ingrowing nail (principal); E11.9 Type 2 diabetes mellitus without complications; Z79.4 Long term (current) use of insulin | CPT/HCPCS: 11730; 99203 ==

== ENCOUNTER 2024-03-12 13:00 | Outpatient (CLI) | payer MEDICARE, SELFPAY ==
--- NOTE | 2024-03-12 13:00 | US_ITS ---
WS: [id number] RENAL ULTRASOUND HISTORY: N18.3 - Chronic kidney disease, stage 3 (moderate) COMPARISON: 11/23/2022 TECHNIQUE: 2-D and color Doppler imaging of the kidney submitted. Quality this examination is compromised by body habitus. Limited visualization of the entire kidneys. Right kidney: 9.0 cm x 4.9 cm x 4.0 cm. Cortex: 1.1 cm Low normal size kidney. No hydronephrosis. Mild increased echogenicity. Left kidney: 10.3 cm x 4.5 cm x 4.3 cm. Cortex: 1.1 cm Normal size kidney. Exophytic cyst from the mid kidney. This does correspond to the cyst previously described. Cyst measures 1.9 x 2.0 x 1.3 cm. No solid mass or obstruction. The entire kidney is not w ell visualized. Aorta: Normal. Urinary Bladder: Normal distention. US/US renal BI* [id number] IMPRESSION: 1. No hydronephrosis. 2. Limited evaluation of the kidneys due to body habitus. 3. Mild chronic medical renal disease. 4. Stable LEFT renal cyst.
== END 2024-03-12 13:14 | disposition home or self-care (01) ==
PROVIDERS: PCP Nurse Practitioner; Visit Provider Nurse Practitioner
DX: N18.30 Chronic kidney disease, stage 3 unspecified (principal); N28.1 Cyst of kidney, acquired
CPT/HCPCS: 76770

== ENCOUNTER → 2024-03-26 09:55 | Outpatient (BNVA) | payer MEDICARE, SELFPAY | PROVIDERS: PCP Nurse Practitioner; Visit Provider Nurse Practitioner | DX: E03.8 Other specified hypothyroidism (principal); E11.22 Type 2 diabetes mellitus with diabetic chronic kidney disease; N18.32 Chronic kidney disease, stage 3b | CPT/HCPCS: 80053; 80061; 83036; 84443 ==

== ENCOUNTER → 2024-06-09 10:08 | Outpatient (BNVA) | payer OTHER, SELFPAY | PROVIDERS: PCP Nurse Practitioner; Visit Provider Nurse Practitioner | DX: E11.22 Type 2 diabetes mellitus with diabetic chronic kidney disease (principal); N18.32 Chronic kidney disease, stage 3b; E55.9 Vitamin D deficiency, unspecified | CPT/HCPCS: 80053; 80061; 82306; 83036; 84443; 85025 ==

== ENCOUNTER → 2024-08-18 11:04 | Outpatient (BNVA) | payer MEDICARE, SELFPAY | PROVIDERS: PCP Nurse Practitioner; Visit Provider Nurse Practitioner | DX: E11.22 Type 2 diabetes mellitus with diabetic chronic kidney disease (principal); N18.32 Chronic kidney disease, stage 3b; E55.9 Vitamin D deficiency, unspecified | CPT/HCPCS: 80053; 80061; 82306; 82607; 83036; 84443; 85025 ==

== ENCOUNTER → 2024-11-06 08:18 | Outpatient (BNVA) | payer MEDICARE, SELFPAY | PROVIDERS: PCP Nurse Practitioner; Visit Provider Nurse Practitioner | DX: E11.9 Type 2 diabetes mellitus without complications (principal); E55.9 Vitamin D deficiency, unspecified | CPT/HCPCS: 80053; 80061; 82306; 83036; 84443 ==

== ENCOUNTER → 2025-02-11 09:54 | Outpatient (BNVA) | payer MEDICARE, SELFPAY | PROVIDERS: PCP Nurse Practitioner; Visit Provider Nurse Practitioner | DX: E55.9 Vitamin D deficiency, unspecified (principal); E11.9 Type 2 diabetes mellitus without complications | CPT/HCPCS: 80053; 80061; 82306; 83036; 84443; 85025 ==

== ENCOUNTER → 2025-02-20 11:05 | Outpatient (BNVA) | payer MEDICARE, SELFPAY | PROVIDERS: PCP Nurse Practitioner; Visit Provider Nurse Practitioner | DX: N18.30 Chronic kidney disease, stage 3 unspecified (principal) | CPT/HCPCS: 80069; 82310; 83970; 85025 ==

== ENCOUNTER → 2025-02-23 08:17 | Outpatient (BNVA) | payer MEDICARE, SELFPAY | PROVIDERS: PCP Nurse Practitioner; Visit Provider Nurse Practitioner | DX: N18.30 Chronic kidney disease, stage 3 unspecified (principal) | CPT/HCPCS: 82043 ==

== ENCOUNTER → 2025-05-07 10:01 | Outpatient (BNVA) | payer MEDICARE, SELFPAY | PROVIDERS: PCP Nurse Practitioner; Visit Provider Nurse Practitioner | DX: E11.9 Type 2 diabetes mellitus without complications (principal) | CPT/HCPCS: 80053; 80061; 83036; 84443; 85025 ==